=== PATIENT | female | born 1955 | race Hispanic/Latino ===

== ENCOUNTER 2020-12-28 08:30 | Day surgery (SDC) | payer MEDICARE ==
[2020-12-28] MEDS ORDERED: SODIUM CHLORIDE 0.9% 1000 ML 1,000 ML IV SCH (09:00)
[2020-12-28 09:34] LABS: Hematocrit 25.8 % (30.3-42.9); Hemoglobin 8.6 gm/dl (10.1-14.3); Mean Corpuscular HGB Conc 33 % (30-34); Mean Corpuscular Volume 96 fl (79-97); Platelet Count 258 K/mm3 (140-440); Red Blood Count 2.68 M/mm3 (3.65-5.03); Red Cell Distribution Width 13.7 % (13.2-15.2)
[2020-12-28] MEDS ORDERED: BUPIVACAINE-EPINEPHRINE/PF 0.5%-1:200,000 (30 ML) VIAL INFILTRATI ONE (09:48)
[2020-12-28] MEDS ORDERED: MIDAZOLAM 2 MG/2 ML INJ ONE ×2 (09:48→11:07)
[2020-12-28] MEDS ORDERED: fentaNYL 100 MCG/2 ML INJ ONE (09:48)
[2020-12-28] MEDS ORDERED: ONDANSETRON 4 MG/2 ML INJ IV PRN (09:52)
[2020-12-28] MEDS ORDERED: HYDROmorphone 1 MG/1 ML INJ IV PRN ×2 (09:52)
--- NOTE | 2020-12-28 09:53 | Anesthesia Day of Surgery ---
Anesthesia Day of Surgery - Day of Surgery Patient Examined: Yes Patient H&P Reviewed: Yes Patient is NPO: Yes Beta Blockers: Yes
--- NOTE | 2020-12-28 09:55 | Anesthesia Consultation ---
Anesthesia Consult and Med Hx Date of service: 12/28/20 - Airway Anesthetic Teeth Evaluation: Chipped (Missing) ROM Head & Neck: Adequate Mental/Hyoid Distance: Adequate Intubation Access Assessment: Good - Pre-Operative Health Status ASA Pre-Surgery Classification: ASA3 Proposed Anesthetic Plan: General (BLOCK; GA if needed) - Pulmonary Hx Smoking: No Hx Asthma: No Hx Respiratory Symptoms: No (Limited activity because loses balance) COPD: No Hx Pneumonia: No Hx Sleep Apnea: No (JOSE ARMANDO PRE SCREEN HIGH RISK) - Cardiovascular System Hx Hypertension: Yes (X 6 YRS) Hx Heart Attack/AMI: No Hx Pacemaker: No Hx Internal Defibrillator: No Hx Heart Murmur: No - Central Nervous System Hx Seizures: No Hx Back Pain: Yes (ALSO NECK) Hx Psychiatric Problems: No - Gastrointestinal Hx Gastroesophageal Reflux Disease: Yes - Endocrine Hx Renal Disease: Yes (Acute) Hx End Stage Renal Disease: Yes ("WATCHING"-GETTING AVF JUST IN CASE) Hx Cirrhosis: No Hx Liver Disease: No Hx Non-Insulin Dependent Diabetes: Yes (non-compliant. BS 641 on admission) - Hematic Hx Anemia: Yes Hx Sickle Cell Disease: No - Other Systems Hx Alcohol Use: No Hx Substance Use: No Hx Cancer: No Hx Obesity: Yes
[2020-12-28] MEDS ORDERED: HEPARIN 10,000 UNITS/10 ML VIAL ONE (10:24)
[2020-12-28] MEDS ORDERED: SODIUM CHLORIDE 0.9% 250ML 0 ML ONE (10:25)
[2020-12-28] MEDS ORDERED: BUPIVACAINE/PF (0.5%) 5 MG/1 ML 30 ML VIAL INFILTRATI ONE ×3 (10:25→15:11)
[2020-12-28] MEDS ORDERED: PAPAVERINE 60 MG/2 ML INJ SDV ONE (10:26)
[2020-12-28] MEDS ORDERED: SODIUM CHLORIDE 0.9% 500 ML 500 ML ONE (10:26)
[2020-12-28] MEDS ORDERED: PROTAMINE SULFATE 50 MG/5 ML INJ ONE (10:28)
[2020-12-28] MEDS ORDERED: rifAMPin 600 MG VIAL ONE (10:29)
[2020-12-28] MEDS ORDERED: LIDOCAINE (1%) 10 MG/1 ML VIAL 20 ML MDV ONE (10:30)
[2020-12-28] MEDS ORDERED: HEPARIN 10,000 UNITS/10 ML VIAL IV ONE ×2 (10:51→15:11)
[2020-12-28] MEDS ORDERED: SODIUM CHLORIDE 0.9% IRR 1,500 ML BOTTLE IR ONE ×2 (10:52→15:11)
[2020-12-28 10:54] LABS: Calcium 8.4 mg/dL (8.4-10.2)
[2020-12-28] MEDS ORDERED: BUPIVACAINE-EPINEPHRINE/PF 0.5%-1:200,000 (10 ML) VIAL INFILTRATI ONE (11:15)
[2020-12-28] MEDS ORDERED: propofoL 200 MG/20 ML VIAL IV ONE (14:30)
[2020-12-28] MEDS ORDERED: SODIUM CHLORIDE 0.9% 500 ML IVPB IRRIGATION ONE (15:10)
[2020-12-28] MEDS ORDERED: hydrALAZINE 20 MG/1 ML INJ ONE (15:59)
--- NOTE | 2020-12-28 16:08 | Short Stay Summary ---
Short Stay Documentation Date of service: 12/28/20 Narrative H&P: See H&P - History H&P: dictated (Written H&P Sheet) - Allergies and Medications Current Medications: Allergies Penicillins Allergy (Verified 07/19/16 00:38) Rash tetracycline Allergy (Verified 07/19/16 00:38) Rash Home Medications Medication Instructions Recorded Confirmed Last Taken Type Aspirin 81 mg PO QDAY tablet 07/27/16 12/28/20 12/27/20 Rx AtorvaSTATin [Lipitor] 80 mg PO QHS 10/26/20 12/28/20 12/27/20 History Bumetanide [Bumetanide 2 mg tab] 2 mg PO DAILY 10/26/20 12/28/20 12/27/20 History Cholecalciferol (Vitamin D3) 50,000 unit PO QWEEK 10/26/20 12/28/20 12/27/20 History [Vitamin D3 50,000UNIT CAP] Insulin Glargine,Hum.rec.anlog 42 units SQ QHS 10/26/20 10/26/20 12/27/20 History [Toujeo Solostar] Sodium Bicarbonate 650 mg PO BID 10/26/20 12/28/20 12/27/20 History calcitrioL [Rocaltrol] 0.25 mcg PO 3XW 10/26/20 12/28/20 12/27/20 History hydrALAZINE [Apresoline] 50 mg PO BID 10/26/20 12/28/20 12/27/20 History lisinopriL [Zestril TAB] 40 mg PO QDAY 10/26/20 12/28/20 12/27/20 History metOLazone [Zaroxolyn] 5 mg PO QDAY 10/26/20 12/28/20 12/27/20 History Esomeprazole Magnesium [Nexium 20 mg PO DAILY 12/22/20 12/22/20 12/27/20 History 24Hr] Gabapentin [Neurontin] 800 mg PO BID 12/22/20 12/22/20 12/27/20 History Glimepiride [Amaryl] 4 mg PO BID 12/22/20 12/22/20 12/27/20 History Metoprolol Xl [Metoprolol 12.5 mg PO BID 12/22/20 12/28/20 12/28/20 07:00 History SUCCINATE ER TAB] Saxagliptin HCl [Onglyza] 5 mg PO DAILY 12/22/20 12/22/20 12/27/20 History Vitamin D2 1 cap PO 3XW 12/22/20 12/22/20 12/27/20 History Active Medications Hydromorphone HCl (Hydromorphone 1 Mg/1 Ml Inj) 0.25 mg IV Q10MIN PRN PRN Reason: Pain, Moderate (4-6) Stop: 12/28/20 23:00 Hydromorphone HCl (Hydromorphone 1 Mg/1 Ml Inj) 0.5 mg IV Q10MIN PRN PRN Reason: Pain , Severe (7-10) Stop: 12/28/20 23:00 Clindamycin HCl (Cleocin 900 Mg/50 Ml) 900 mg in 50 mls @ 100 mls/hr IV PREOP NR; Protocol Stop: 12/28/20 20:00 Sodium Chloride (Nacl 0.9% 1000 Ml) 1,000 mls @ 42 mls/hr IV DIRECT ARABELLA Last Admin: 12/28/20 09:10 Dose: 42 mls/hr Documented by: Ondansetron HCl (Ondansetron 4 Mg/2 Ml Inj) 4 mg IV ONCE PRN PRN Reason: Nausea And Vomiting Stop: 12/28/20 18:00 - Brief post op/procedure progress note Date of procedure: 12/28/20 Pre-op diagnosis: Chronic Renal Sufficiency Post-op diagnosis: same Procedure: Creation of Left Brachiocephalic Arteriovenous Fistula Anesthesia: MAC, local Surgeon: SEA GOODMAN Estimated blood loss: minimal Pathology: none Condition: stable - Disposition Condition at discharge: Good Disposition: [id number] TO HOME OR SELFCARE Short Stay Discharge Plan Activity: other (No heavy lifting with left arm for 2 weeks) Wound: open to air, keep clean and dry, other (Okay to wash the wound with soap and water but do not soak in water for 2 weeks. Use a stress ball, with left hand, as often as possible.) Follow up with: SEA GOODMAN MD [Staff Physician] - 14 Days Prescriptions: HYDROcodone/APAP 5-325 [[place] 5/325] 1 each PO Q4HR PRN #30 tablet PRN Reason: Pain
--- NOTE | 2020-12-28 16:30 | Operative Report ---
Operative Report Operative Report: Date of procedure: 12/28/2020 Pre-operative diagnosis: End-Stage Renal Disease Post-operative diagnosis: End-Stage Renal Disease Procedure(s): Creation of Left brachial Artery to Cephalic Vein Arteriovenous Fistula Surgeon: Cal Mendoza MD Skirt Trimmer: None Anesthesia: Regional/MAC EBL: Minimal Counts: Correct Complications: None Condition: Stable Findings: Successful creation of left brachiocephalic arteriovenous fistula with palpable thrill and palpable radial pulse at the completion of the case. Specimen: None Indications: The patient is a 65-year-old female with history of stage IV chronic renal sufficiency who was not yet on hemodialysis however it is anticipated that she will progress to end-stage renal disease within the next several months. She is in need of permanent dialysis access prior to progression to end-stage renal disease. Her vein mapping indicated she is an adequate candidate for creation of an arteriovenous fistula. She was given the risk, benefits, and alternative procedures and consented to the procedure. Description of Procedure: The patient had a regional block of the left arm performed in the preoperative area prior to being transported to the operating room. Once the regional block was performed the patient was transported to the operating room and adequate sedation was given. When the patient was sedated a timeout was performed and the patient's left arm was then prepped and draped in normal sterile fashion. A transverse incision was then made and carried down to the cephalic vein using sharp dissection. The vein was dissected out both proximally and distally and suture ligated and divided distally. I flushed the vein with heparinized saline and flow was controlled with a bulldog clamp. I then dissected out the brachial artery through this incision circumferentially both proximal and distal and controlled the artery with vessel loops. I systemically heparinized the patient with 3000 units of heparin IV and used angled DeBakey clamps to control flow through the artery. I created an arteriotomy using an 11 blade and Schwab scissors. I created an end to side anastomosis between the cephalic vein and brachial artery using a 6-0 Prolene in running fashion. Prior to completing the anastomosis I flashed the artery both proximally and distally and then flushed the anastomosis with heparinized saline to remove any debris. I then completed the anastomosis and removed all clamps allowing flow into the fistula which had an adequate thrill. I achieved hemostasis with a combination of Quick Clot and electrocautery. Once hemostasis had been achieved I closed the wound in 2 layers using a 3-0 Vicryl in a running fashion in the deep dermal layer and a 4- 0 Monocryl in running fashion in the subcuticular layer. I then dressed the wound with Dermabond. The patient tolerated the procedure well. All sponge, needle, and instrument counts were correct. The patient was taken to the recovery area in stable condition.
[2020-12-28 18:17] VITALS: BP 143/67
== END 2020-12-28 18:00 | disposition home or self-care (01) ==
LOC: OR 08:30
PROVIDERS: ATTEND Surgery Vascular Surgery
DX: I12.0 Hypertensive chronic kidney disease with stage 5 chronic kidney disease or end stage renal disease (principal); E11.22 Type 2 diabetes mellitus with diabetic chronic kidney disease; N18.6 End stage renal disease; E78.00 Pure hypercholesterolemia, unspecified; K21.9 Gastro-esophageal reflux disease without esophagitis; E66.9 Obesity, unspecified; M19.90 Unspecified osteoarthritis, unspecified site; D64.9 Anemia, unspecified; Z88.0 Allergy status to penicillin; Z79.899 Other long term (current) drug therapy; Z98.41 Cataract extraction status, right eye; Z98.42 Cataract extraction status, left eye; Z90.49 Acquired absence of other specified parts of digestive tract; Z98.891 History of uterine scar from previous surgery; Z91.81 History of falling; Z98.890 Other specified postprocedural states
CPT/HCPCS: 36415; 36821; 80048; 82962; 85027; J0360; J1644; J2250; J2440; J2704; J3010; J7030; J7040; 64450; J2720; J3490; J7050

== ENCOUNTER 2021-03-06 13:10 | Inpatient (IN) | payer MEDICARE ==
--- NOTE | 2021-03-06 13:51 | Event Note ---
ED Screening Note ED Screening Note: Warrant Server Dr. Juarez She states that she has a AV graft but has never been dialyzed She states that her netting inspector advised her she was in stage V kidney disease She presents for shortness of breath, abdominal pain, diffuse swelling She denies any chest pain, fever, nausea, vomiting, diarrhea Regular rate and rhythm, breath sounds are clear bilaterally, no wheezing, no rales, no rhonchi, no respiratory distress, no excessive muscle use This initial assessment/diagnostic orders/clinical plan/treatment(s) is/are subject to change based on patients health status, clinical progression and re- assessment by fellow clinical providers in the ED. Further treatment and workup at subsequent clinical providers discretion. Patient/guardian urged not to elope from the ED as their condition may be serious if not clinically assessed and managed. Initial orders include: Labs, x-ray, EKG
[2021-03-06 14:06] LABS: Basophils # (Auto) 0.1 K/mm3 (0.0-0.1); Eosinophils # (Auto) 0.2 K/mm3 (0.0-0.4); Eosinophils % (Auto) 2.7 % (0.0-4.3); Hematocrit 27.8 % (30.3-42.9); Hemoglobin 9.4 gm/dl (10.1-14.3); Lymphocytes # (Auto) 1.6 K/mm3 (1.2-5.4); Lymphocytes % (Auto) 17.8 % (13.4-35.0); Mean Corpuscular HGB Conc 34 % (30-34); Mean Corpuscular Volume 96 fl (79-97); Monocytes # (Auto) 0.8 K/mm3 (0.0-0.8); Monocytes % (Auto) 8.4 % (0.0-7.3); Platelet Count 187 K/mm3 (140-440); Red Cell Distribution Width 14.4 % (13.2-15.2)
--- NOTE | 2021-03-06 14:19 | XRay Report ---
CHEST 2 VIEWS INDICATION / CLINICAL INFORMATION: sob, swelling. FINDINGS: SUPPORT DEVICES: None. HEART / MEDIASTINUM: No significant abnormality. LUNGS / PLEURA: No significant pulmonary or pleural abnormality. No pneumothorax. ADDITIONAL FINDINGS: No significant additional findings. IMPRESSION: 1. No acute findings. Signer Name: Homero Ferraro MD Signed: 03/06/2021 2:14 PM Workstation Name: [id number]
[2021-03-06 14:29] LABS: Albumin 2.8 g/dL (3.9-5); Calcium 7.8 mg/dL (8.4-10.2)
[2021-03-06 14:59] LABS: Chol/HDL Ratio 4.75 %
[2021-03-06] MEDS ORDERED: HYOSCYAMINE SUBL 0.125 MG TAB SL ONE (20:23)
[2021-03-06] MEDS ORDERED: diphenhydrAMINE 50 MG/ML VIAL IV STA (20:23)
[2021-03-06] MEDS ORDERED: METOCLOPRAMIDE 10 MG/2 ML INJ IV STA (20:23)
--- NOTE | 2021-03-06 20:23 | Emergency Department Report ---
<DI HERR - Last Filed: 03/06/21 21:06> ED N/V/D HPI - General Chief complaint: Abdominal Pain Stated complaint: CANT KEEP ANYTHING DOWN Time Seen by Provider: 03/06/21 13:49 - Related Data Home Medications Medication Instructions Recorded Confirmed Last Taken AtorvaSTATin [Lipitor] 80 mg PO QHS 10/26/20 12/28/20 12/27/20 Bumetanide [Bumetanide 2 mg tab] 2 mg PO DAILY 10/26/20 12/28/20 12/27/20 Cholecalciferol (Vitamin D3) 50,000 unit PO QWEEK 10/26/20 12/28/20 12/27/20 [Vitamin D3 50,000UNIT CAP] Insulin Glargine,Hum.rec.anlog 42 units SQ QHS 10/26/20 10/26/20 12/27/20 [Toujeo Solostar] Sodium Bicarbonate 650 mg PO BID 10/26/20 12/28/20 12/27/20 calcitrioL [Rocaltrol] 0.25 mcg PO 3XW 10/26/20 12/28/20 12/27/20 hydrALAZINE [Apresoline TAB] 50 mg PO BID 10/26/20 12/28/20 12/27/20 lisinopriL [Zestril TAB] 40 mg PO QDAY 10/26/20 12/28/20 12/27/20 metOLazone [Zaroxolyn] 5 mg PO QDAY 10/26/20 12/28/20 12/27/20 Esomeprazole Magnesium [Nexium 20 mg PO DAILY 12/22/20 12/22/20 12/27/20 24Hr] Gabapentin [Neurontin] 800 mg PO BID 12/22/20 12/22/20 12/27/20 Glimepiride [Amaryl] 4 mg PO BID 12/22/20 12/22/20 12/27/20 Metoprolol Xl [Metoprolol 12.5 mg PO BID 12/22/20 12/28/20 12/28/20 07:00 SUCCINATE ER TAB] Saxagliptin HCl [Onglyza] 5 mg PO DAILY 12/22/20 12/22/20 12/27/20 Vitamin D2 1 cap PO 3XW 12/22/20 12/22/2021 Previous Rx's Medication Instructions Recorded Last Taken Type Aspirin 81 mg PO QDAY tablet 07/27/16 12/27/20 Rx HYDROcodone/APAP 5-325 [Fisk 1 each PO Q4HR PRN #30 tablet 12/28/20 Unknown Rx 5/325] Allergies Allergy/AdvReac Type Severity Reaction Status Date / Time Penicillins Allergy Rash Verified 07/19/16 00:38 tetracycline Allergy Rash Verified 07/19/16 00:38 ED Past Medical Hx - Medications Home Medications: Home Medications Medication Instructions Recorded Confirmed Last Taken Type Aspirin 81 mg PO QDAY tablet 07/27/16 12/28/20 12/27/20 Rx AtorvaSTATin [Lipitor] 80 mg PO QHS 10/26/20 12/28/20 12/27/20 History Bumetanide [Bumetanide 2 mg tab] 2 mg PO DAILY 10/26/20 12/28/20 12/27/20 History Cholecalciferol (Vitamin D3) 50,000 unit PO QWEEK 10/26/20 12/28/20 12/27/20 History [Vitamin D3 50,000UNIT CAP] Insulin Glargine,Hum.rec.anlog 42 units SQ QHS 10/26/20 10/26/20 12/27/20 History [Toujeo Solostar] Sodium Bicarbonate 650 mg PO BID 10/26/20 12/28/20 12/27/20 History calcitrioL [Rocaltrol] 0.25 mcg PO 3XW 10/26/20 12/28/20 12/27/20 History hydrALAZINE [Apresoline TAB] 50 mg PO BID 10/26/20 12/28/20 12/27/20 History lisinopriL [Zestril TAB] 40 mg PO QDAY 10/26/20 12/28/20 12/27/20 History metOLazone [Zaroxolyn] 5 mg PO QDAY 10/26/20 12/28/20 12/27/20 History Esomeprazole Magnesium [Nexium 20 mg PO DAILY 12/22/20 12/22/20 12/27/20 History 24Hr] Gabapentin [Neurontin] 800 mg PO BID 12/22/20 12/22/20 12/27/20 History Glimepiride [Amaryl] 4 mg PO BID 12/22/20 12/22/20 12/27/20 History Metoprolol Xl [Metoprolol 12.5 mg PO BID 12/22/20 12/28/20 12/28/20 07:00 History SUCCINATE ER TAB] Saxagliptin HCl [Onglyza] 5 mg PO DAILY 12/22/20 12/22/20 12/27/20 History Vitamin D2 1 cap PO 3XW 12/22/20 12/22/20 12/27/20 History HYDROcodone/APAP 5-325 [Fisk 1 each PO Q4HR PRN #30 tablet 12/28/20 Unknown Rx 5/325] ED Medical Decision Making - Lab Data Result diagrams: 03/06/21 13:51 03/06/21 13:51 - Medical Decision Making I evaluated Ms. Raines. She has a history of insulin-dependent diabetes, hypertension, end-stage renal disease. She is currently not on hemodialysis. Since Sunday for the past 6 days she has had severe abdominal pain burning gurgling sensation. She has been unable to tolerate her blood pressure medications. She has been unable to take insulin due to poor intake. On my examination patient is in severe discomfort. She has markedly elevated blood pressure. I recommended small bolus gentle hydration with 500 mL normal saline and supportive treatment with antiemetic and pain control. Also recommended IV labetalol for malignant hypertensive urgency. Also recommended nephrology consultation and hospitalist admission. I suspect symptoms are due to diabetic gastroparesis versus uremic complications of end-stage renal disease ED Disposition Clinical Impression: Uremic colitis syndrome, ESRD (end stage renal disease), Malignant hypertensive urgency, IDDM (insulin dependent diabetes mellitus) Disposition: OP ADMIT IP TO THIS HOSP Condition: Stable Instructions: Diabetes Mellitus Type 2 in Adults (ED), Abdominal Pain (ED) Referrals: PRIMARY CARE, [Primary Care Provider] - 3-5 Days <ELAYNE HANDLEY - Last Filed: 03/06/21 23:26> ED N/V/D HPI - General Source: patient Mode of arrival: Ambulatory Limitations: No Limitations - History of Present Illness Initial comments: 66-year-old pleasant female with past medical history of diabetes, end-stage renal disease diagnosed 6 months ago and now awaiting dialysis presents emerge department complaining of a 6 to 7-day history of nausea vomiting and diarrhea associated with abdominal cramping, dull headaches and now dry heaving. She reports no hemoptysis no hematemesis hematochezia, no no fever, chills, sweats. Reports no no chest pain or palpitations. The abdominal pain is to the epigastric region. States that she feels weak and dehydrated feels like she needs fluids. Associated Abdominal Pain: Yes Location: epigastric Radiation: none Severity: mild Improves with: none Worsens with: none Associated Symptoms: myalgias, headaches, malaise, nausea/vomiting, weakness. denies: chest pain, cough, diaphoresis, shortness of breath ED Review of Systems ROS: Stated complaint: CANT KEEP ANYTHING DOWN Other details as noted in HPI Comment: All other systems reviewed and negative ED Past Medical Hx - Past Medical History Previous Medical History?: Yes Hx Hypertension: Yes (X 6 YRS) Hx Heart Attack/AMI: No Hx Congestive Heart Failure: No Hx Diabetes: Yes Hx GERD: Yes Hx Liver Disease: No Hx Renal Disease: Yes (Acute) Hx Sickle Cell Disease: No Hx Arthritis: Yes (SPINAL,FEET & KNEES) Hx Headaches / Migraines: No Hx Seizures: No Hx Kidney Stones: No Hx Asthma: No Hx COPD: No Hx Tuberculosis: No Hx HIV: No - Surgical History Past Surgical History?: Yes Hx Coronary Stent: No Hx Pacemaker: No Hx Internal Defibrillator: No Hx Cholecystectomy: Yes Additional Surgical History: left knee. fistual to LUE - Social History Smoking Status: Never Smoker Substance Use Type: None ED Physical Exam - General Limitations: No Limitations General appearance: alert, in no apparent distress - Head Head exam: Present: atraumatic, normocephalic - Eye Eye exam: Present: normal appearance - ENT ENT exam: Present: mucous membranes moist - Neck Neck exam: Present: normal inspection - Respiratory Respiratory exam: Present: normal lung sounds bilaterally, decreased breath sounds (To the bases with fine crackles). Absent: respiratory distress - Cardiovascular Cardiovascular Exam: Present: regular rate, normal rhythm. Absent: systolic murmur, diastolic murmur, rubs, gallop - GI/Abdominal GI/Abdominal exam: Present: soft, tenderness (To the epigastric region with palpation.), normal bowel sounds - Extremities Exam Extremities exam: Present: normal inspection, pedal edema (Lower extremity pitting edema is noted) - Back Exam Back exam: Present: normal inspection. Absent: CVA tenderness (R), CVA tenderness (L) - Neurological Exam Neurological exam: Present: alert, oriented X3, CN II-XII intact - Psychiatric Psychiatric exam: Present: normal affect, normal mood. Absent: depressed, a nxious - Skin Skin exam: Present: warm, dry, intact, normal color. Absent: rash ED Course Vital Signs 03/06/21 03/06/21 03/06/21 13:46 17:53 19:24 Temperature 98.3 F 98.3 F Pulse Rate 68 66 68 Respiratory 22 18 17 Rate Blood Pressure 216/68 Blood Pressure 124/70 [Right] O2 Sat by Pulse 96 97 98 Oximetry 03/06/21 03/06/21 03/06/21 19:31 19:45 20:01 Temperature Pulse Rate 74 76 76 Respiratory 14 18 16 Rate Blood Pressure 201/57 203/56 205/71 Blood Pressure [Right] O2 Sat by Pulse 98 96 97 Oximetry 03/06/21 03/06/21 03/06/21 20:15 20:31 20:45 Temperature Pulse Rate 77 73 75 Respiratory 17 15 21 Rate Blood Pressure 207/63 194/74 230/70 Blood Pressure [Right] O2 Sat by Pulse 96 97 97 Oximetry 03/06/21 03/06/21 03/06/21 21:01 22:01 22:05 Temperature Pulse Rate 74 76 Respiratory 16 15 18 Rate Blood Pressure 234/79 234/79 Blood Pressure [Right] O2 Sat by Pulse 98 97 Oximetry 03/06/21 03/06/21 03/06/21 22:10 22:15 22:20 Temperature Pulse Rate 66 63 Respiratory 11 L 18 Rate Blood Pressure 216/68 186/53 Blood Pressure [Right] O2 Sat by Pulse 96 95 Oximetry - Reevaluation(s) Reevaluation #1: 03/06/21 20:44 Case discussed with my attending Dr. Di Herr whom had [id number] and evaluated Ms. Raines is well. Plan is to move forward the CT scan of the abdomen with no contrast also we will treat her hypertension with with labetalol and after we have received the results we will consult with her offline cutter to discuss the admission process - Consultations Consultation #1: 03/06/21 23:00 I did get the opportunity to speak with the offline cutter Dr. King who advised to admit patient to medicine and consult him so he can evaluate the patient first thing in the morning for dialysis. Call was placed to the hospitalist Consultation #2: 03/06/21 23:16 Case discussed with hospitalist Dr. Jackson plan is to admit in the interim with replace potassium with 10 or 20 of KCl IV per his recommendation as well as start the coronavirus work-up ED Medical Decision Making - Lab Data Result diagrams: 03/06/21 13:51 03/06/21 13:51 - Radiology Data Radiology results: report reviewed [address] [address] XRay Report Signed Patient: SENAIT RAINES MR#: [id number] : 1955 Acct:[id number] Age/Sex: 66 / F ADM Date: 03/06/21 Loc: ED Attending Dr: Ordering Physician: MARC SOMMERS Date of Service: 03/06/21 Procedure(s): XR chest routine 2V Accession Number(s): [id number] cc: MARC SOMMERS Fluoro Time In Minutes: CHEST 2 VIEWS INDICATION / CLINICAL INFORMATION: sob, swelling. FINDINGS: SUPPORT DEVICES: None. HEART / MEDIASTINUM: No significant abnormality. LUNGS / PLEURA: No significant pulmonary or pleural abnormality. No pneum othorax. ADDITIONAL FINDINGS: No significant additional findings. IMPRESSION: 1. No acute findings. Signer Name: Homero Ferraro MD Signed: 03/06/2021 2:14 PM Workstation Name: [id number] Transcribed By: Dictated By: Homero Ferraro MD Electronically Authenticated By: Homero Ferraro MD Signed Date/Time: 03/06/211413 DD/ 13 TD/TT: [address] [place] [id number] XRay Report Signed Patient: SENAIT RAINES MR#: [id number] : 1955 Acct:[id number] Age/Sex: 66 / F ADM Date: 03/06/21 Loc: ED Attending Dr: Ordering Physician: MARC SOMMERS Date of Service: 03/06/21 Procedure(s): XR chest routine 2V Accession Number(s): [id number] cc: MARC SOMMERS Fluoro Time In Minutes: CHEST 2 VIEWS INDICATION / CLINICAL INFORMATION: sob, swelling. FINDINGS: SUPPORT DEVICES: None. HEART / MEDIASTINUM: No significant abnormality. LUNGS / PLEURA: No significant pulmonary or pleural abnormality. No pneumothorax. ADDITIONAL FINDINGS: No significant additional findings. IMPRESSION: 1. No acute findings. Signer Name: Homero Ferraro MD Signed: 03/06/2021 2:14 PM Workstation Name: [id number] Transcribed By: BC Dictated By: Homero Ferraro MD Electronically Authenticated By: Homero Ferraro MD Signed Date/Time: 03/06/211413 DD/ 13 TD/TT: CRISTOFER Joyner [id number] Cat Scan Report Signed Patient: SENAIT RAINES MR#: [id number] : 1955 Acct:[id number] Age/Sex: 66 / F ADM Date: 03/06/21 Loc: ED Attending Dr: Ordering Physician: MARC GUERRERO Date of Service: 03/06/21 Procedure(s): CT abdomen pelvis wo con Accession Number(s): [id number] cc: MARC GUERRERO CT ABDOMEN AND PELVIS WITHOUT CONTRAST INDICATION / CLINICAL INFORMATION: flank and right pelvic pain. TECHNIQUE: Axial CT images were obtained through the abdomen and pelvis without IV contrast. All CT scans at this location are performed using CT dose reduction for ALARA by means of automated exposure control. COMPARISON: None available. FINDINGS: LOWER CHEST: Groundglass opacity noted in the right lung base. Small bilateral pleural effusions are noted with minimal atelectasis. Mild coronary artery calcification is noted. LIVER: No significant abnormality. GALLBLADDER: Prior cholecystectomy. BILE DUCTS: No significant abnormality. PANCREAS: No significant abnormality. SPLEEN: No significant abnormality. ADRENALS: No significant abnormality. RIGHT KIDNEY / URETER: No significant abnormality. No calcified stones or hydronephrosis. LEFT KIDNEY / URETER: No significant abnormality. No calcified stones or hydronephrosis. STOMACH / SMALL BOWEL: No significant abnormality. COLON: No significant abnormality. APPENDIX: No significant abnormality. PERITONEUM: Mild intraperitoneal edema is noted. No free air. No complex fluid collection. LYMPH NODES: No significant adenopathy. AORTA / ARTERIES: Mild atherosclerotic calcification without acute abnormality. IVC / VEINS: No significant abnormality. URINARY BLADDER: No significant abnormality. No calcified stone burden. REPRODUCTIVE ORGANS: Dystrophic calcifications are noted of bilateral adnexa. ADDITIONAL FINDINGS: Moderate/severe body wall anasarca. SKELETAL SYSTEM: Moderate multilevel degenerative changes are noted of the spine most prominent at the facet joints. No aggressive osseous lesion. IMPRESSION: 1. Groundglass opacity in the right lung base may represent an infectious proc ess. Clinical correlation is dated. 2. Small bilateral pleural effusions with associated compressive atelectasis. 3. Disorganized intraperitoneal edema with body wall anasarca. 4. No acute inflammatory process of the abdomen or pelvis. Specifically, no evidence of calcified stones or hydronephrosis. Signer Name: Cayden Archer MD Signed: 03/06/2021 9:34 PM Workstation Name: [id number] Transcribed By: Dictated By: CAYDEN ARCHER Electronically Authenticated By: CAYDEN ARCHER Signed Date/Time: 03/06/212133 DD/ 26 TD/TT: Print Cancel - Medical Decision Making 60-year-old female history of insulin-dependent diabetes mellitus, hypertension, end-stage renal disease due to start hemodialysis at some point with a 7-day history of nausea vomiting and diarrhea that has been waxing and waning in a progressive worsening of fashion. Is unable to tolerate any of her medications which is resulting and more profound symptoms in her visit emergency department today and results in in a few issues #1 end-stage renal disease Currently she is hypervolemic with swelling to her bilateral lower extremities and to her torso region. CT scan does support moderate anasarca. And bilateral pleural effusions. Her potassium is low at 3.2 and she is not having a significant amount of shortness of breath. Case was discussed with her offline cutter Dr. King who will be consulted in the morning and and may very likely start on hemodialysis Problem 2 hypertension This hypertension is a known past medical history with due to her not been able tolerate her medications as the most likely cause of this spike in blood pressure. Was treated with labetalol IV and showed the appropriate response. She is remained relatively asymptomatic in regards to her hypertension while here in the emergency department. Nausea vomiting diarrhea 67-day history of nausea vomiting diarrhea no significant issues with with fevers chills sweats but is having some vague myalgias and cough. This may have been secondary to a food poisoning or a viral illness or her end-stage renal disease or even uremic complications. Also need to keep into perspective due to the groundglass appearance on her chest x-ray as well as the symptoms coronavirus is still a factor for this reason we will put her is and a person of interest until results come back. Critical care attestation.: If time is entered above; I have spent that time in minutes in the direct care of this critically ill patient, excluding procedure time. ED Disposition Is pt being admited?: Yes Does the pt Need Aspirin: No
[2021-03-06] MEDS ORDERED: SODIUM CHLORIDE 0.9% 1000 ML 1,000 ML IV ONE (20:52)
[2021-03-06] MEDS ORDERED: MORPHINE 4 MG/1 ML INJ IV STA (20:54)
--- NOTE | 2021-03-06 21:38 | Cat Scan Report ---
CT ABDOMEN AND PELVIS WITHOUT CONTRAST INDICATION / CLINICAL INFORMATION: flank and right pelvic pain. TECHNIQUE: Axial CT images were obtained through the abdomen and pelvis without IV contrast. All CT scans at is location are performed using CT dose reduction for ALARA by means of automated exposure control. COMPARISON: None available. FINDINGS: LOWER CHEST: Groundglass opacity noted in the right lung base. Small bilateral pleural effusions are noted with minimal atelectasis. Mild coronary artery calcification is noted. LIVER: No significant abnormality. GALLBLADDER: Prior cholecystectomy. BILE DUCTS: No significant abnormality. PANCREAS: No significant abnormality. SPLEEN: No significant abnormality. ADRENALS: No significant abnormality. RIGHT KIDNEY / URETER: No significant abnormality. No calcified stones or hydronephrosis. LEFT KIDNEY / URETER: No significant abnormality. No calcified stones or hydronephrosis. STOMACH / SMALL BOWEL: No significant abnormality. COLON: No significant abnormality. APPENDIX: No significant abnormality. PERITONEUM: Mild intraperitoneal edema is noted. No free air. No complex fluid collection. LYMPH NODES: No significant adenopathy. AORTA / ARTERIES: Mild atherosclerotic calcification without acute abnormality. IVC / VEINS: No significant abnormality. URINARY BLADDER: No significant abnormality. No calcified stone burden. REPRODUCTIVE ORGANS: Dystrophic calcifications are noted of bilateral adnexa. ADDITIONAL FINDINGS: Moderate/severe body wall anasarca. SKELETAL SYSTEM: Moderate multilevel degenerative changes are noted of the spine most prominent at th e facet joints. No aggressive osseous lesion. IMPRESSION: 1. Groundglass opacity in the right lung base may represent an infectious process. Clinical correlati on is dated. 2. Small bilateral pleural effusions with associated compressive atelectasis. 3. Disorganized intraperitoneal edema with body wall anasarca. 4. No acute inflammatory process of the abdomen or pelvis. Specifically, no evidence of calcified sto mark or hydronephrosis. Signer Name: Cayden Hines MD Signed: 03/06/2021 9:34 PM Workstation Name: [id number]
[2021-03-06] MEDS ORDERED: POTASSIUM CHLORIDE 10 MEQ 10 MEQ/100 ML BAG IV ONE (23:15)
[2021-03-07 01:30] LABS: C-Reactive Protein 0.5 mg/dL (0.00-1.30)
[2021-03-07] MEDS ORDERED: MAGNESIUM HYDROXIDE (MOM) ORAL LIQD UDC PO PRN (02:02)
[2021-03-07] MEDS ORDERED: DEXTROSE 50% IN WATER (25GM) 50 ML SYRINGE IV PRN (02:02)
[2021-03-07] MEDS ORDERED: ACETAMINOPHEN 325 MG TAB PO PRN (02:02)
--- NOTE | 2021-03-07 02:14 | History and Physical Report ---
History of Present Illness Date of examination: 03/07/21 Date of admission: 03/07/2021 Chief complaint: Nausea, vomiting and diarrhea Cough History of present illness: 66-year-old female with known history of diabetes mellitus, hypertension and end-stage renal disease however not on dialysis yet presents to the emergency room today complaining of nausea, vomiting and diarrhea with associated abdominal abdominal pain which has been ongoing for about 6 days. She denies any headache or dizziness, no fever or chills, no chest pain. However she has had some cough and shortness of breath. Cough has not been productive of any sputum. Patient denies any sick contacts and no recent travel. Denies any contact with anyone with COVID-19. She has not received Covid vaccination. Work-up in the emergency room today reveals elevated D-dimer of 1104, potassium of 3.2, BNP of about 48,000 Chest x-ray reveals no acute findings however CT of the abdomen and pelvis rev eals groundglass opacities in the right lung base which may represent an infectious process, small bilateral pleural effusion with associated compressive atelectasis, disorganized intraperitoneal edema with body wall anasarca. No inflammatory process of the abdomen or pelvis. Patient is being admitted for nausea and vomiting and diarrhea and will also be evaluated for COVID-19. Technical Laboratory Asst was also consulted for her end-stage renal disease. Past History Past Medical History: arthritis, diabetes, ESRD, hypertension Past Surgical History: cholecystectomy, Other (Left knee surgery, AV fistula placement) Social history: no significant social history Family history: no significant family history Medications and Allergies Allergies Allergy/AdvReac Type Severity Reaction Status Date / Time Penicillins Allergy Rash Verified 07/19/16 00:38 tetracycline Allergy Rash Verified 07/19/16 00:38 Home Medications Medication Instructions Recorded Confirmed Last Taken Type Aspirin 81 mg PO QDAY tablet 07/27/16 12/28/20 12/27/20 Rx AtorvaSTATin [Lipitor] 80 mg PO QHS 10/26/20 12/28/20 12/27/20 History Bumetanide [Bumetanide 2 mg tab] 2 mg PO DAILY 10/26/20 12/28/20 12/27/20 History Cholecalciferol (Vitamin D3) 50,000 unit PO QWEEK 10/26/20 12/28/20 12/27/20 History [Vitamin D3 50,000UNIT CAP] Insulin Glargine,Hum.rec.anlog 42 units SQ QHS 10/26/20 10/26/20 12/27/20 History [Touadalid Solostar] Sodium Bicarbonate 650 mg PO BID 10/26/20 12/28/20 12/27/20 History calcitrioL [Rocaltrol] 0.25 mcg PO 3XW 10/26/20 12/28/20 12/27/20 History hydrALAZINE [Apresoline TAB] 50 mg PO BID 10/26/20 12/28/20 12/27/20 History lisinopriL [Zestril TAB] 40 mg PO QDAY 10/26/20 12/28/20 12/27/20 History metOLazone [Zaroxolyn] 5 mg PO QDAY 10/26/20 12/28/20 12/27/20 History Esomeprazole Magnesium [Nexium 20 mg PO DAILY 12/22/20 12/22/20 12/27/20 History 24Hr] Gabapentin [Neurontin] 800 mg PO BID 12/22/20 12/22/20 12/27/20 History Glimepiride [Amaryl] 4 mg PO BID 12/22/20 12/22/20 12/27/20 History Metoprolol Xl [Metoprolol 12.5 mg PO BID 12/22/20 12/28/20 12/28/20 07:00 History SUCCINATE ER TAB] Saxagliptin HCl [Onglyza] 5 mg PO DAILY 12/22/20 12/22/20 12/27/20 History Vitamin D2 1 cap PO 3XW 12/22/20 12/22/20 12/27/20 History HYDROcodone/APAP 5-325 [[place] 1 each PO Q4HR PRN #30 tablet 12/28/20 Unknown Rx 5/325] Review of Systems Constitutional: lethargy, no fever, no chills Ears, nose, mouth and throat: no nasal congestion, no sore throat Cardiovascular: no chest pain, no palpitations Respiratory: cough, cough with sputum, shortness of breath, no wheezing Gastrointestinal: abdominal pain, nausea, vomiting, diarrhea, no BRBPR, no melena Genitourinary Female: no pelvic pain, no flank pain, no dysuria, no hematuria Musculoskeletal: no neck pain, no low back pain Integumentary: no rash, no pruritis Neurological: headaches, no confusion Psychiatric: no anxiety, no depression Endocrine: no polyphagia, no polydipsia, no polyuria, no nocturia Exam - Constitutional Vitals: Temp Pulse Resp BP Pulse Ox 98.3 F 63 18 186/53 95 03/06/21 17:53 03/06/21 22:15 03/06/21 22:20 03/06/21 22:15 03/06/21 22:20 General appearance: Present: no acute distress, well-nourished, obese - EENT Eyes: Present: PERRL, EOM intact. Absent: scleral icterus ENT: hearing intact, clear oral mucosa, dentition normal - Neck Neck: Present: supple, normal ROM - Respiratory Respiratory effort: normal Respiratory: bilateral: rales - Cardiovascular Rhythm: regular Heart Sounds: Present: S1 & S2. Absent: gallop, systolic murmur, diastolic murmur, rub, click - Extremities Extremities: no ischemia, Full ROM Extremity abnormal: edema (2+ bilateral lower extremity edema) - Abdominal General gastrointestinal: Present: soft, tender (Mild epigastric tenderness, no guarding and no rebound tenderness), distended (Slightly distended). Absent: mass - Integumentary Integumentary: Present: clear, warm, dry. Absent: rash - Musculoskeletal Musculoskeletal: strength equal bilaterally - Psychiatric Psychiatric: appropriate mood/affect, intact judgment & insight, memory intact, cooperative, other (Left upper extremity AV fistula. Palpable thrill.) - Neurologic Neurologic: CNII-XII intact, no focal deficits, moves all extremities HEART Score - HEART Score Troponin: Troponin T 0.172 ng/mL (0.00-0.029) H* 03/06/21 13:51 Results - Labs CBC & Chem 7: 03/06/21 13:51 03/06/21 23:39 Labs: Abnormal lab results 03/06/21 03/06/21 03/06/21 Range/Units 13:51 13:51 23:39 RBC 2.90 L (3.65-5.03) M/mm3 Hgb 9.4 L (10.1-14.3) gm/dl Hct 27.8 L (30.3-42.9) % [place] % (Auto) 8.4 H (0.0-7.3) % Seg Neutrophils % 70.1 H (40.0-70.0) % D-Dimer 1104.66 H (0-234) ng/mlDDU Potassium 3.2 L (3.6-5.0) mmol/L Chloride 110.4 H (98-107) mmol/L Carbon Dioxide 19 L (22-30) mmol/L BUN 35 H (7-17) mg/dL Creatinine 4.7 H (0.6-1.2) mg/dL Glucose 177 H (65-100) mg/dL Calcium 7.8 L (8.4-10.2) mg/dL Total Bilirubin 1.30 H (0.1-1.2) mg/dL Lactate Dehydrogenase (91-180) units/L Total Creatine Kinase 534 H (30-135) units/L Troponin T 0.172 H* (0.00-0.029) ng/mL NT-Pro-B Natriuret Pep 69808 H (0-900) pg/mL Total Protein 5.8 L (6.3-8.2) g/dL Albumin 2.8 L (3.9-5) g/dL HDL Cholesterol 36 L (40-59) mg/dL 03/06/21 Range/Units 23:39 RBC (3.65-5.03) M/mm3 Hgb (10.1-14.3) gm/dl Hct (30.3-42.9) % [place] % (Auto) (0.0-7.3) % Seg Neutrophils % (40.0-70.0) % D-Dimer (0-234) ng/mlDDU Potassium (3.6-5.0) mmol/L Chloride (98-107) mmol/L Carbon Dioxide (22-30) mmol/L BUN (7-17) mg/dL Creatinine (0.6-1.2) mg/dL Glucose 148 H (65-100) mg/dL Calcium (8.4-10.2) mg/dL Total Bilirubin (0.1-1.2) mg/dL Lactate Dehydrogenase 279 H (91-180) units/L Total Creatine Kinase (30-135) units/L Troponin T (0.00-0.029) ng/mL NT-Pro-B Natriuret Pep (0-900) pg/mL Total Protein (6.3-8.2) g/dL Albumin (3.9-5) g/dL HDL Cholesterol (40-59) mg/dL Assessment and Plan - Patient Problems (1) ESRD (end stage renal disease) Current Visit: Yes Status: Acute Plan to address problem: Currently volume overloaded Consult placed to medical office rep for evaluation and recommendation. Dr. King has been consulted by the ER physician. For possible dialysis in the a.m. Meanwhile placed on Furosemide. (2) Person under investigation for COVID-19 Current Visit: Yes Status: Acute Plan to address problem: Patient be placed on isolation precautions. Consult placed to infectious disease for evaluation. Will await COVID-19 testing. (3) IDDM (insulin dependent diabetes mellitus) Current Visit: Yes Status: Acute Plan to address problem: We will monitor Accu-Cheks closely. Patient placed on sliding scale insulin. (4) Malignant hypertensive urgency Current Visit: Yes Status: Acute Plan to address problem: Patient has not been able to take her oral medication because of the nausea and vomiting. We will resume routine home medications once able to tolerate p.o. intake. We will place on IV hydralazine as needed. We will monitor vital signs closely. (5) Pyuria Current Visit: Yes Status: Acute Plan to address problem: Patient placed on empiric IV antibiotics. (6) Hypokalemia Current Visit: Yes Status: Acute Plan to address problem: Potassium repleted in the ER. We will monitor chemistry. (7) DVT prophylaxis Current Visit: No Status: Acute Plan to address problem: We will place patient on subcutaneous heparin. (8) Full code status Current Visit: Yes Status: Acute Plan to address problem: Patient is full code.
[2021-03-07 02:29] LABS: Bacteria,Urine 1+ /HPF (Negative); Bilirubin,Urine NEG (Negative); Blood,Urine SM (Negative); Color,Urine Yellow (Yellow); Mucus,Urine FEW /HPF; Urobilinogen,Urine < 2.0 mg/dL (<2.0)
[2021-03-07 02:31] LABS: Protein,Urine >500 mg/dL (Negative)
[2021-03-07] MEDS: HEPARIN 5,000 UNIT/1 ML VIAL SUB-Q SCH ×3 (05:29→21:22)
[2021-03-07] MEDS ORDERED: HEPARIN 10,000 UNITS/10 ML VIAL IV PRN (09:24)
[2021-03-07] MEDS ORDERED: SODIUM CHLORIDE 0.9% 100 ML IV PRN (09:24)
--- NOTE | 2021-03-07 09:37 | Consultation ---
History of Present Illness - Reason for Consult Consult date: 03/07/21 end stage renal disease Requesting physician: OTILIO HILL - History of Present Illness 66-year-old with a history of diabetes mellitus, hypertension, chronic kidney disease stage V who follows with Dr. King in the office. Patient has an AV fistula and was being prepared to initiate dialysis. Presents on account of several days history of abdominal pain, nausea vomiting and diarrhea. She was unable to keep anything down and had dry heaves. She was unable to keep her medications down and was not taking insulin due to her poor oral intake. She also complains of abdominal cramping worsened epigastric area. She admits to a dull headache and feels weak and dehydrated. She also admits to cough productive of dark sputum with chills but no fever. She had myalgia and weakness. Patient presented to emergency room was found to have blood pressure of 234/[address] scan showed evidence of anasarca with small bilateral pleural effusion, compressive atelectasis with groundglass opacity in the right lower lobe. I am consulted to assist in managing the kidney disease. Pro B type natruretic peptide is also high at 47,765. BUN/creatinine elevated at 35/4.7 mmol/L and potassium low at 3.2 mmol/L. Past History Past Medical History: arthritis, diabetes, ESRD, hypertension Past Surgical History: cholecystectomy, Other (Left knee surgery, AV fistula placement) Social history: no significant social history. denies: smoking, alcohol abuse, prescription drug abuse Family history: no significant family history Medications and Allergies Allergies Allergy/AdvReac Type Severity Reaction Status Date / Time Penicillins Allergy Rash Verified 07/19/16 00:38 tetracycline Allergy Rash Verified 07/19/16 00:38 Home Medications Medication Instructions Recorded Confirmed Last Taken Type Aspirin 81 mg PO QDAY tablet 07/27/16 12/28/20 12/27/20 Rx AtorvaSTATin [Lipitor] 80 mg PO QHS 10/26/20 12/28/20 12/27/20 History Bumetanide [Bumetanide 2 mg tab] 2 mg PO DAILY 10/26/20 12/28/20 12/27/20 History Cholecalciferol (Vitamin D3) 50,000 unit PO QWEEK 10/26/20 12/28/20 12/27/20 History [Vitamin D3 50,000UNIT CAP] Insulin Glargine,Hum.rec.anlog 42 units SQ QHS 10/26/20 10/26/20 12/27/20 History [Toujeo Solostar] Sodium Bicarbonate 650 mg PO BID 10/26/20 12/28/20 12/27/20 History calcitrioL [Rocaltrol] 0.25 mcg PO 3XW 10/26/20 12/28/20 12/27/20 History hydrALAZINE [Apresoline TAB] 50 mg PO BID 10/26/20 12/28/20 12/27/20 History lisinopriL [Zestril TAB] 40 mg PO QDAY 10/26/20 12/28/20 12/27/20 History metOLazone [Zaroxolyn] 5 mg PO QDAY 10/26/20 12/28/20 12/27/20 History Esomeprazole Magnesium [Nexium 20 mg PO DAILY 12/22/20 12/22/20 12/27/20 History 24Hr] Gabapentin [Neurontin] 800 mg PO BID 12/22/20 12/22/20 12/27/20 History Glimepiride [Amaryl] 4 mg PO BID 12/22/20 12/22/20 12/27/20 History Metoprolol Xl [Metoprolol 12.5 mg PO BID 12/22/20 12/28/20 12/28/20 07:00 History SUCCINATE ER TAB] Saxagliptin HCl [Onglyza] 5 mg PO DAILY 12/22/20 12/22/20 12/27/20 History Vitamin D2 1 cap PO 3XW 12/22/20 12/22/20 12/27/20 History HYDROcodone/APAP 5-325 [[place] 1 each PO Q4HR PRN #30 tablet 12/28/20 Unknown Rx 5/325] Active Meds: Active Medications Acetaminophen (Acetaminophen 325 Mg Tab) 650 mg PO Q4H PRN PRN Reason: Pain MILD(1-3)/Fever >100.5/ROCHA Dextrose (Dextrose 50% In Water (25gm) 50 Ml Syringe) 0 ml IV Q30MIN PRN; Protocol PRN Reason: Hypoglycemia Furosemide (Furosemide 40 Mg/4 Ml Inj) 40 mg IV BID@0600,1800 [facility]A Heparin Sodium (Porcine) (Heparin 5,000 Unit/1 Ml Vial) 5,000 unit SUB-Q Q8HR [facility] Last Admin: 03/07/21 05:29 Dose: 5,000 unit Documented by: Hydralazine HCl (Hydralazine 20 Mg/1 Ml Inj) 10 mg IV Q4H PRN PRN Reason: Blood Pressure Levofloxacin/Dextrose (Levaquin 500mg/100ml) 500 mg in 100 mls @ 100 mls/hr IV Q48HR [facility] Insulin Human Lispro (Insulin Lispro 100 Unit/Ml) 0 unit SUB-Q ACHS ARABELLA; Protocol Magnesium Hydroxide (Magnesium Hydroxide (Mom) Oral Liqd Udc) 30 ml PO Q4H PRN PRN Reason: Constipation Morphine Sulfate (Morphine 2 Mg/1 Ml Inj) 2 mg IV Q4H PRN PRN Reason: Pain, Moderate (4-6) Ondansetron HCl (Ondansetron 4 Mg/2 Ml Inj) 4 mg IV Q8H PRN PRN Reason: Nausea And Vomiting Sodium Chloride (Sodium Chloride 0.9% 10 Ml Flush Syringe) 10 ml IV BID ARABELLA Sodium Chloride (Sodium Chloride 0.9% 10 Ml Flush Syringe) 10 ml IV PRN PRN PRN Reason: LINE FLUSH Review of Systems All systems: negative (Limited to decrease exposure of the examining physician during COVID-19 pandemic) Exam - Vital Signs Vital signs: Vital Signs Temp Pulse Resp BP Pulse Ox 98.3 F 68 22 124/70 96 03/06/21 13:46 03/06/21 13:46 03/06/21 13:46 03/06/21 13:46 03/06/21 13:46 - Physical Exam Narrative exam: Obese middle-aged female lying in bed in no acute distress HEENT: NCAT, pink oral mucous membrane Neck: Supple, no venous distention CVS: S1S2 RRR with no murmur, rub or gallop Chest: Clear to auscultation Abdomen: Protuberant, soft, nontender, no organomegaly, bowel sounds are present Extremities: 2-3+ pitting edema Genitourinary deferred Skin warm and dry with no rash Neuro: Awake, alert no focal deficits Results - Lab Results 03/06/21 13:51 03/06/21 23:39 Most recent lab results Calcium 7.8 mg/dL (8.4-10.2) L 03/06/21 13:51 Magnesium 1.90 mg/dL (1.7-2.3) 03/06/21 13:51 Assessment and Plan - Patient Problems (1) Chronic kidney disease, stage 5 Current Visit: Yes Status: Acute Plan to address problem: Chronic kidney disease progressed to end-stage renal disease with fluid overload. Nausea and vomiting may be related to uremia but also could be related to gastroparesis or COVID-19. Patient already has an AV fistula. She is severely volume overloaded despite taking oral diuretics. Needs to start dialysis. We will start dialysis using 17-gauge needles in her new AV fistula. It has been cleared for use by Dr. Mendoza her vascular surgeon. Will need to arrange for outpatient dialysis. Get hepatitis profile and check tuberculin skin test. senior it project manager to assist with placement (2) Nausea & vomiting Current Visit: Yes Status: Acute Plan to address problem: Give antiemetics as needed. Follow-up (3) Diarrhea Current Visit: Yes Status: Acute Plan to address problem: May be related to COVID-19. Check SARS coronavirus 2 PCR (4) Hypertensive urgency Current Visit: Yes Status: Acute Plan to address problem: Elevated blood pressure due to intolerance of oral antihypertensive medications. Resume medications follow-up blood pressure (5) Type 2 diabetes mellitus with diabetic chronic kidney disease Current Visit: Yes Status: Acute Plan to address problem: Blood sugar management by primary attending (6) Anemia in chronic kidney disease Current Visit: Yes Status: Acute Plan to address problem: Erythropoietin on dialysis. Check iron stores (7) Hypokalemia Current Visit: Yes Status: Acute Plan to address problem: Hypokalemia probably secondary to GI losses. Supplement potassium and follow- up. We will dialyze on a 4K bath
[2021-03-07] MEDS: FUROSEMIDE 40 MG/4 ML INJ IV SCH ×2 (09:59→21:22)
[2021-03-07] MEDS: INSULIN LISPRO 100 UNIT/ML SUB-Q SCH ×4 (09:59→21:23)
--- NOTE | 2021-03-07 11:46 | Event Note ---
Date: 03/07/21 66 year old F with a medical history of CKD admitted with fluid overload. She had left arm AV fistula placed 2 months ago but has not had HD. Nephrology has been consulted for evaluation. Due to changes in chest xray - likely related to fluid overload , COVID-19 cannot be ruled out (COVID-19 test ordered) manager pipeline consulted to assist with HD chair arrangement.
[2021-03-07] MEDS: MORPHINE 2 MG/1 ML INJ IV PRN ×2 (15:00→18:02)
--- NOTE | 2021-03-07 15:02 | Consultation ---
History of Present Illness - Reason for Consult Consult date: 03/07/21 - History of Present Illness 66-year-old female past medical history diabetes, hypertension, ESRD not on HD presented to hospital complaining of GI upset. He also complains of associated abdominal pain. This began approximately 6 days prior to admission has been persistent since then. She otherwise denies any symptoms aside from cough and some shortness of breath. She has not been vaccinated against Covid. Afebrile with a white count of 9.3. Procalcitonin normal, GFR 9. Very high BNP. Pending COVID-19. No cultures. Currently on Levaquin. Imaging personally reviewed: Chest x-ray: No findings CT abdomen pelvis: Groundglass in the right lung base intraperitoneal edema with body wall anasarca. Review of systems: Deferred to reduce to the risk of transmission of COVID-19 Past History Past Medical History: arthritis, diabetes, ESRD, hypertension Past Surgical History: cholecystectomy, Other (Left knee surgery, AV fistula placement) Social history: no significant social history. denies: smoking, alcohol abuse, prescription drug abuse Family history: no significant family history Medications and Allergies Allergies Allergy/AdvReac Type Severity Reaction Status Date / Time Penicillins Allergy Rash Verified 07/19/16 00:38 tetracycline Allergy Rash Verified 07/19/16 00:38 Home Medications Medication Instructions Recorded Confirmed Last Taken Type Aspirin 81 mg PO QDAY tablet 07/27/16 12/28/20 12/27/20 Rx AtorvaSTATin [Lipitor] 80 mg PO QHS 10/26/20 12/28/20 12/27/20 History Bumetanide [Bumetanide 2 mg tab] 2 mg PO DAILY 10/26/20 12/28/20 12/27/20 History Cholecalciferol (Vitamin D3) 50,000 unit PO QWEEK 10/26/20 12/28/20 12/27/20 History [Vitamin D3 50,000UNIT CAP] Insulin Glargine,Hum.rec.anlog 42 units SQ QHS 10/26/20 10/26/20 12/27/20 History [Toujeo Solostar] Sodium Bicarbonate 650 mg PO BID 10/26/20 12/28/20 12/27/20 History calcitrioL [Rocaltrol] 0.25 mcg PO 3XW 01/03/1112/28/20 12/27/20 History hydrALAZINE [Apresoline TAB] 50 mg PO BID 10/26/20 12/28/20 12/27/20 History lisinopriL [Zestril TAB] 40 mg PO QDAY 10/26/20 12/28/20 12/27/20 History metOLazone [Zaroxolyn] 5 mg PO QDAY 10/26/20 12/28/20 12/27/20 History Esomeprazole Magnesium [Nexium 20 mg PO DAILY 12/22/20 12/22/20 12/27/20 History 24Hr] Gabapentin [Neurontin] 800 mg PO BID 12/22/20 12/22/20 12/27/20 History Glimepiride [Amaryl] 4 mg PO BID 12/22/20 12/22/20 12/27/20 History Metoprolol Xl [Metoprolol 12.5 mg PO BID 12/22/20 12/28/20 12/28/20 07:00 History SUCCINATE ER TAB] Saxagliptin HCl [Onglyza] 5 mg PO DAILY 12/22/20 12/22/20 12/27/20 History Vitamin D2 1 cap PO 3XW 12/22/20 12/22/20 12/27/20 History HYDROcodone/APAP 5-325 [[place] 1 each PO Q4HR PRN #30 tablet 12/28/20 Unknown Rx 5/325] Active Meds: Active Medications Acetaminophen (Acetaminophen 325 Mg Tab) 650 mg PO Q4H PRN PRN Reason: Pain MILD(1-3)/Fever >100.5/ROCHA Dextrose (Dextrose 50% In Water (25gm) 50 Ml Syringe) 0 ml IV Q30MIN PRN; [place] col PRN Reason: Hypoglycemia Furosemide (Furosemide 40 Mg/4 Ml Inj) 40 mg IV BID@0600,1800 [facility] Last Admin: 03/07/21 09:59 Dose: 40 mg Documented by: Heparin Sodium (Porcine) (Heparin 5,000 Unit/1 Ml Vial) 5,000 unit SUB-Q Q8HR [facility] Last Admin: 03/07/21 05:29 Dose: 5,000 unit Documented by: Heparin Sodium (Porcine) (Heparin 10,000 Units/10 Ml Vial) 1,000 unit IV CHLOÉ PRN PRN Reason: hemodialysis Hydralazine HCl (Hydralazine 20 Mg/1 Ml Inj) 10 mg IV Q4H PRN PRN Reason: Blood Pressure Levofloxacin/Dextrose (Levaquin 500mg/100ml) 500 mg in 100 mls @ 100 mls/hr IV Q48HR [facility] Sodium Chloride (Nacl 0.9%) 100 mls @ 999 mls/hr IV CHLOÉ PRN PRN Reason: Hypotension Insulin Human Lispro (Insulin Lispro 100 Unit/Ml) 0 unit SUB-Q ACHS ARABELLA; Protocol Last Admin: 03/07/21 14:07 Dose: Not Given Documented by: Magnesium Hydroxide (Magnesium Hydroxide (Mom) Oral Liqd Udc) 30 ml PO Q4H PRN PRN Reason: Constipation Morphine Sulfate (Morphine 2 Mg/1 Ml Inj) 2 mg IV Q4H PRN PRN Reason: Pain, Moderate (4-6) Ondansetron HCl (Ondansetron 4 Mg/2 Ml Inj) 4 mg IV Q8H PRN PRN Reason: Nausea And Vomiting Sodium Chloride (Sodium Chloride 0.9% 10 Ml Flush Syringe) 10 ml IV BID [facility] Last Admin: 03/07/21 10:17 Dose: 10 ml Documented by: Sodium Chloride (Sodium Chloride 0.9% 10 Ml Flush Syringe) 10 ml IV PRN PRN PRN Reason: LINE FLUSH Physical Examination - Physical Exam Narrative exam: Physical exam deferred to reduce risk of transmission of COVID-19. Please refer to primary team's note. - Constitutional Vitals: Vital Signs Temp Pulse Resp BP Pulse Ox 98.3 F 65 13 183/53 96 03/06/21 17:53 03/07/21 05:45 03/07/21 05:45 03/07/21 05:45 03/07/21 05:45 Temperature -Last 24 Hours Temperature 98.3 F Results - Labs CBC & Chem 7: 03/06/21 13:51 03/06/21 23:39 Labs: Abnormal lab results 03/06/21 03/06/21 03/06/21 Range/Units 13:51 23:39 23:39 D-Dimer 1104.66 H (0-234) ng/mlDDU Potassium 3.2 L (3.6-5.0) mmol/L Chloride 110.4 H (98-107) mmol/L Carbon Dioxide 19 L (22-30) mmol/L BUN 35 H (7-17) mg/dL Creatinine 4.7 H (0.6-1.2) mg/dL Glucose 177 H 148 H (65-100) mg/dL POC Glucose (70-105) mg/dL Calcium 7.8 L (8.4-10.2) mg/dL Total Bilirubin 1.30 H (0.1-1.2) mg/dL Lactate Dehydrogenase 279 H (91-180) units/L Total Creatine Kinase 534 H (30-135) units/L Troponin T 0.172 H* (0.00-0.029) ng/mL NT-Pro-B Natriuret Pep 77429 H (0-900) pg/mL Total Protein 5.8 L (6.3-8.2) g/dL Albumin 2.8 L (3.9-5) g/dL HDL Cholesterol 36 L (40-59) mg/dL Urine WBC (Auto) (0.0-6.0) /HPF U Epithel Cells (Auto) (0-13.0) /HPF 03/07/21 03/07/21 Range/Units 09:53 Unknown D-Dimer (0-234) ng/mlDDU Potassium (3.6-5.0) mmol/L Chloride (98-107) mmol/L Carbon Dioxide (22-30) mmol/L BUN (7-17) mg/dL Creatinine (0.6-1.2) mg/dL Glucose (65-100) mg/dL POC Glucose 145 H (70-105) mg/dL Calcium (8.4-10.2) mg/dL Total Bilirubin (0.1-1.2) mg/dL Lactate Dehydrogenase (91-180) units/L Total Creatine Kinase (30-135) units/L Troponin T (0.00-0.029) ng/mL NT-Pro-B Natriuret Pep (0-900) pg/mL Total Protein (6.3-8.2) g/dL Albumin (3.9-5) g/dL HDL Cholesterol (40-59) mg/dL Urine WBC (Auto) 19.0 H (0.0-6.0) /HPF U Epithel Cells (Auto) 21.0 H (0-13.0) /HPF Assessment and Plan Cultures: Covid pending A/P: 66-year-old female past medical history diabetes, hypertension, ESRD not on HD admitted with GI upset and fluid overload #N/V/D: possibly secondary to uremia with worsening renal function and new need for HD. Also need to consider COVID, and test is pending. #Fluid overload: associated with worsening renal function #ESRD now on HD: nephro on board #Right sided GGO: procalcitonin likely to be unrevealing as will likely be falsely elevated in setting of ESRD #DM2: tight glycemic control for best outcomes. Recs: -Stopped Levaquin; symptoms most likely secondary to fluid overload/viremia. No evidence of inflammation on CT -Follow up COVID PCR, though less likely to be positive. -HD per nephro Thank you for the consult, we will continue to follow. MD [facility] O: [phone] F: [phone]
[2021-03-07] MEDS: hydrALAZINE 20 MG/1 ML INJ IV PRN ×2 (15:52→21:22)
[2021-03-07] MEDS: EPOETIN ALFA-EPBX 10,000 UNIT/1 ML VIAL IV PRN (17:30)
[2021-03-08] MEDS: ONDANSETRON 4 MG/2 ML INJ IV PRN (05:33)
[2021-03-08] MEDS: hydrALAZINE 20 MG/1 ML INJ IV PRN ×2 (05:33→13:49)
[2021-03-08] MEDS: HEPARIN 5,000 UNIT/1 ML VIAL SUB-Q SCH ×3 (05:34→22:07)
[2021-03-08] MEDS: FUROSEMIDE 40 MG/4 ML INJ IV SCH ×2 (05:34→18:23)
[2021-03-08 07:02] LABS: Basophils # (Auto) 0.1 K/mm3 (0.0-0.1); Basophils % (Auto) 0.7 % (0.0-1.8); Eosinophils # (Auto) 0.3 K/mm3 (0.0-0.4); Eosinophils % (Auto) 3.1 % (0.0-4.3); Hematocrit 26.3 % (30.3-42.9); Hemoglobin 8.8 gm/dl (10.1-14.3); Lymphocytes # (Auto) 2.5 K/mm3 (1.2-5.4); Lymphocytes % (Auto) 24.4 % (13.4-35.0); Mean Corpuscular HGB Conc 33 % (30-34); Mean Corpuscular Volume 95 fl (79-97); Monocytes % (Auto) 9.9 % (0.0-7.3); Platelet Count 170 K/mm3 (140-440); Red Blood Count 2.78 M/mm3 (3.65-5.03); Red Cell Distribution Width 14.5 % (13.2-15.2)
[2021-03-08 07:10] LABS: INR 1.13 (0.87-1.13)
[2021-03-08 07:15] LABS: Calcium 7.7 mg/dL (8.4-10.2)
[2021-03-08] MEDS ORDERED: POTASSIUM CHLORIDE ER 20 MEQ TAB PO NR (08:45)
[2021-03-08] MEDS: POTASSIUM CHLORIDE 10 MEQ 10 MEQ/100 ML BAG IV SCH ×2 (09:01→10:57)
[2021-03-08] MEDS: INSULIN LISPRO 100 UNIT/ML SUB-Q SCH ×4 (09:02→22:16)
--- NOTE | 2021-03-08 10:04 | Progress Note ---
Assessment and Plan Assessment and plan: #ESRD Patient is volume overloaded Started on hemodialysis Nephrology recommendations appreciated Needs hemodialysis chair to be set up prior to discharge #COVID-19 test-negative #DM Continue sliding scale #Hypertensive urgency Continue blood pressure medications #Hypokalemia Replete as needed #DVT ppx - heparin History Interval history: 66-year-old female with known history of diabetes mellitus, hypertension and end-stage renal disease however not on dialysis yet presents to the emergency room today complaining of nausea, vomiting and diarrhea with associated abdominal abdominal pain which has been ongoing for about 6 days. She denies any headache or dizziness, no fever or chills, no chest pain. However she has had some cough and shortness of breath. Cough has not been productive of any sputum. Patient denies any sick contacts and no recent travel. Denies any contact with anyone with COVID-19. She has not received Covid vaccination. Work-up in the emergency room today reveals elevated D-dimer of 1104, potassium of 3.2, BNP of about 48,000 Chest x-ray reveals no acute findings however CT of the abdomen and pelvis reveals groundglass opacities in the right lung base which may represent an infectious process, small bilateral pleural effusion with associated compressive atelectasis, disorganized intraperitoneal edema with body wall anasarca. No inflammatory process of the abdomen or pelvis. Patient is being admitted for nausea and vomiting and diarrhea and will also be evaluated for COVID-19. Long Lines Operator was also consulted for her end-stage renal disease. Hospital course 03/08. Patient had hemodialysis yesterday. Feels slightly better but still has generalized edema. Remains on IV antibiotics and diuretics. Appreciate ID and nephrology recommendations. Her potassium is low so we will replete. Patient will need to have hemodialysis chair set up prior to discharge. Plan to have hemodialysis per nephrology Hospitalist Physical - Physical exam Narrative exam: VITAL SIGNS: Reviewed. GENERAL: Awake HEAD: No signs of head trauma. EYES: Pupils are equal. Extraocular motions intact. MOUTH: Oropharynx is normal. NECK: No adenopathy, no JVD. CHEST: Diminished breath sounds CARDIAC: normal S1 and S2, without murmurs, gallops, or rubs. ABDOMEN: Soft, non tender and non distended. No rebound or guarding, and no masses palpated. Bowel Sounds normal. MUSCULOSKELETAL: Edema NEUROLOGIC EXAM: Alert and oriented x3. No focal neurologic deficits SKIN: No obvious lesions - Constitutional Vitals: Temp Pulse Resp BP Pulse Ox 98.1 F 77 16 182/65 95 03/08/21 04:20 03/08/21 05:33 03/08/21 04:20 03/08/21 05:33 03/08/21 04:20 HEART Score - HEART Score Troponin: Troponin T 0.172 ng/mL (0.00-0.029) H* 03/06/21 13:51 Results - Labs CBC & Chem 7: 03/08/21 06:09 03/08/21 06:09 Labs: Laboratory Last Values WBC 10.2 K/mm3 (4.5-11.0) 03/08/21 06:09 RBC 2.78 M/mm3 (3.65-5.03) L 03/08/21 06:09 Hgb 8.8 gm/dl (10.1-14.3) L 03/08/21 06:09 Hct 26.3 % (30.3-42.9) L 03/08/21 06:09 MCV 95 fl (79-97) 03/08/21 06:09 MCH 32 pg (28-32) 03/08/21 06:09 MCHC 33 % (30-34) 03/08/21 06:09 RDW 14.5 % (13.2-15.2) 03/08/21 06:09 Plt Count 170 K/mm3 (140-440) 03/08/21 06:09 Lymph % (Auto) 24.4 % (13.4-35.0) 03/08/21 06:09 [place] % (Auto) 9.9 % (0.0-7.3) H 03/08/21 06:09 Eos % (Auto) 3.1 % (0.0-4.3) 03/08/21 06:09 Baso % (Auto) 0.7 % (0.0-1.8) 03/08/21 06:09 Lymph # (Auto) 2.5 K/mm3 (1.2-5.4) 03/08/21 06:09 [place] # (Auto) 1.0 K/mm3 (0.0-0.8) H 03/08/21 06:09 Eos # (Auto) 0.3 K/mm3 (0.0-0.4) 03/08/21 06:09 Baso # (Auto) 0.1 K/mm3 (0.0-0.1) 03/08/21 06:09 Seg Neutrophils % 61.9 % (40.0-70.0) 03/08/21 06:09 Seg Neutrophils # 6.3 K/mm3 (1.8-7.7) 03/08/21 06:09 PT 14.4 Sec. (12.2-14.9) 03/08/21 06:09 INR 1.13 (0.87-1.13) 03/08/21 06:09 D-Dimer 1104.66 ng/mlDDU (0-234) H 03/06/21 23:39 Sodium 143 mmol/L (137-145) 03/08/21 06:09 Potassium 2.8 mmol/L (3.6-5.0) L* 03/08/21 06:09 Chloride 108.7 mmol/L (98-107) H 03/08/21 06:09 Carbon Dioxide 22 mmol/L (22-30) 03/08/21 06:09 Anion Gap 15 mmol/L 03/08/21 06:09 BUN 25 mg/dL (7-17) H 03/08/21 06:09 Creatinine 3.7 mg/dL (0.6-1.2) H 03/08/21 06:09 Estimated GFR 12 ml/min 03/08/21 06:09 BUN/Creatinine Ratio 7 % 03/08/21 06:09 Glucose 150 mg/dL (65-100) H 03/08/21 06:09 POC Glucose 155 mg/dL (70-105) H 03/08/21 07:44 Hemoglobin A1c 6.0 % (4-6) 03/07/21 00:00 Calcium 7.7 mg/dL (8.4-10.2) L 03/08/21 06:09 Magnesium 1.90 mg/dL (1.7-2.3) 03/06/21 13:51 Iron 43 ug/dL (37-170) 03/08/21 06:09 Ferritin 202.6 ng/mL (10.0-200.0) H 03/08/21 06:09 Total Bilirubin 1.30 mg/dL (0.1-1.2) H 03/06/21 13:51 AST 28 units/L (5-40) 03/06/21 13:51 ALT 16 units/L (7-56) 03/06/21 13:51 Alkaline Phosphatase 95 units/L (35-129) 03/06/21 13:51 Lactate Dehydrogenase 279 units/L (91-180) H 03/06/21 23:39 Total Creatine Kinase 534 units/L (30-135) H 03/06/21 13:51 Troponin T 0.172 ng/mL (0.00-0.029) H* 03/06/21 13:51 C-Reactive Protein 0.50 mg/dL (0.00-1.30) 03/06/21 23:39 NT-Pro-B Natriuret Pep 30708 pg/mL (0-900) H 03/06/21 13:51 Total Protein 5.8 g/dL (6.3-8.2) L 03/06/21 13:51 Albumin 2.8 g/dL (3.9-5) L 03/06/21 13:51 Albumin/Globulin Ratio 0.9 % 03/06/21 13:51 Triglycerides 139 mg/dL (2-149) 03/06/21 13:51 Cholesterol 171 mg/dL (50-199) 03/06/21 13:51 LDL Cholesterol Direct 113 mg/dL (50-130) 03/06/21 13:51 HDL Cholesterol 36 mg/dL (40-59) L 03/06/21 13:51 Cholesterol/HDL Ratio 4.75 % 03/06/21 13:51 Lipase 15 units/L (13-60) 03/06/21 13:51 Procalcitonin 0.05 ng/mL (<0.15) 03/06/21 23:39 Urine Color Yellow (Yellow) 03/07/21 Unknown Urine Turbidity Slightly-cloudy (Clear) 03/07/21 Unknown Urine pH 6.0 (5.0-7.0) 03/07/21 Unknown Ur Specific [place] 1.018 (1.003-1.030) 03/07/21 Unknown Urine Protein >500 mg/dL (Negative) 03/07/21 Unknown Urine Glucose (UA) >=500 mg/dL (Negative) 03/07/21 Unknown Urine Ketones Tr mg/dL (Negative) 03/07/21 Unknown Urine Blood Sm (Negative) 03/07/21 Unknown Urine Nitrite Neg (Negative) 03/07/21 Unknown Urine Bilirubin Neg (Negative) 03/07/21 Unknown Urine Urobilinogen < 2.0 mg/dL (<2.0) 03/07/21 Unknown Ur Leukocyte Esterase Neg (Negative) 03/07/21 Unknown Urine WBC (Auto) 19.0 /HPF (0.0-6.0) H 03/07/21 Unknown Urine RBC (Auto) 4.0 /HPF (0.0-6.0) 03/07/21 Unknown U Epithel Cells (Auto) 21.0 /HPF (0-13.0) H 03/07/21 Unknown Urine Bacteria (Auto) 1+ /HPF (Negative) 03/07/21 Unknown Urine Mucus Few /HPF 03/07/21 Unknown Coronavirus (PCR) Negative (Negative) 03/07/21 09:43 Hep Bs Antigen Non-reactive (Negative) 03/07/21 14:26 Hepatitis C Antibody Non-reactive (NonReactive) 03/07/21 14:26 López/IV: Voiding Method Bedside Commode Active Medications - Current Medications Current Medications: Generic Name Dose Route Start Last Admin Trade Name Freq PRN Reason Stop Dose Admin Acetaminophen 650 mg 03/07/21 02:02 Acetaminophen 325 Mg Tab PO Q4H PRN Pain MILD(1-3)/Fever >100.5/ROCHA Dextrose 0 ml 03/07/21 02:02 Dextrose 50% In Water (25gm) 50 Ml Syringe IV Q30MIN PRN Hypoglycemia Protocol Furosemide 40 mg 03/07/21 06:00 03/08/21 05:34 Furosemide 40 Mg/4 Ml Inj IV 40 mg BID@0600,1800 ARABELLA Administration Heparin Sodium (Porcine) 5,000 unit 03/07/21 06:00 03/08/21 05:34 Heparin 5,000 Unit/1 Ml Vial SUB-Q 5,000 unit Q8HR ARABELLA Administration Heparin Sodium (Porcine) 1,000 unit 03/07/21 09:24 Heparin 10,000 Units/10 Ml Vial IV CHLOÉ PRN hemodialysis Hydralazine HCl 10 mg 03/07/21 05:39 03/08/21 05:33 Hydralazine 20 Mg/1 Ml Inj IV 10 mg Q4H PRN Administration Blood Pressure Sodium Chloride 100 mls @ 999 mls/hr 03/07/21 09:24 Nacl 0.9% IV CHLOÉ PRN Hypotension Potassium Chloride 10 meq in 100 mls @ 100 mls/hr 03/08/21 10:00 03/08/21 09:01 Kcl 10meq/100ml IV 03/08/21 11:59 100 mls/hr Q1H ARABELLA Administration Insulin Human Lispro 0 unit 03/07/21 07:30 03/08/21 09:02 Insulin Lispro 100 Unit/Ml SUB-Q 2 unit ACHS ARABELLA Administration Protocol Magnesium Hydroxide 30 ml 03/07/21 02:02 Magnesium Hydroxide (Mom) Oral Liqd Udc PO Q4H PRN Constipation Morphine Sulfate 2 mg 03/07/21 02:02 03/07/21 18:02 Morphine 2 Mg/1 Ml Inj IV 2 mg Q4H PRN Administration Pain, Moderate (4-6) Ondansetron HCl 4 mg 03/07/21 02:02 03/08/21 05:33 Ondansetron 4 Mg/2 Ml Inj IV 4 mg Q8H PRN Administration Nausea And Vomiting Potassium Chloride 40 meq 03/08/21 08:45 03/08/21 09:00 Potassium Chloride Er 20 Meq Tab PO 03/08/21 12:00 40 meq ONCE@0845 NR Administration Sodium Chloride 10 ml 03/07/21 10:00 03/08/21 09:00 Sodium Chloride 0.9% 10 Ml Flush Syringe IV 10 ml BID ARABELLA Administration Sodium Chloride 10 ml 03/07/21 02:02 Sodium Chloride 0.9% 10 Ml Flush Syringe IV PRN PRN LINE FLUSH Nutrition/Malnutrition Assess - Dietary Evaluation Nutrition/Malnutrition Findings: Nutrition Notes Start: 03/07/21 14:17 Freq: Status: Active Protocol: Document 03/07/21 14:17 CW (Rec: 03/07/21 14:30 CW [id number]) Nutrition Notes Need for Assessment generated from: MD Order,Education Initial or Follow up Assessment Current Diagnosis CKD (stage V CKD),Diabetes, Hypertension Other Pertinent Diagnosis Covid PUI Current Diet Cardiac Consistent Carbohydrate Labs/Tests 03/06 BG 177 HgbA1c 6 NT Pro B 07682 Pertinent Medications Lasix Humalog KCl 10 mEq Height 5 ft 7 in Weight 138.346 kg [place] Body Weight (kg) 61.36 BMI 47.7 Intake Prior to Admission Poor Weight change and time frame 8% weight gain per last admission weight on 10/26/2020 likely r/t to need for HD Weight Status Morbidly Obese Subjective/Other Information MD consult for diet education. Per chart, pt has yet to begin hemodialysis yet has access to intitate HD and pt c /o N/V/D x6 days. Pt did not answer phone for nutritional interview. Per RN, pt has not eaten much of meals. No reports of vomiting at this time. Current % PO Poor (25-49%) Minimum of two criteria No Energy Intake (severe) < or equal to 50% Estimated Energy Requirement > or equal to 5 days #1 Nutrition Diagnosis Inadequate oral intake Etiology N/V/D As Evidenced by Signs and Symptoms Pt chart reports N/V/D x 6 days Is patient on ventilator? No Is Patient Ambulatory and/or Out of Bed Yes REE-([place]. Jeor-ambulatory/OOB) [ 2542.904 [id number]] Kcal/Kg value to use for calculation 15 Approximate Energy Requirements Using 2074 kcal/Kg Calculation Used for Recommendations Kcal/kg Additional Notes protein needs: 120g (>1.2 g/ kgAdjBW for HD) fluid needs: 1 ml/kcal Nutrition Intervention Change Diet Order: Change Diet to Renal Consistent Carbohydrate diet Add Supplement/Snack (indicate name/kcal [place] QD /protein ) Provides kCal: 425 Provides Protein (gm) 19 Goal #1 Meet at least 75% of kcal and protein needs via PO Goal #2 Understand the importance of nutrition therapy for renal and heart healthy diet Anticipated Discharge Needs: Renal Consistent Carbohydrate Diet Follow-Up By: 03/09/21 Additional Comments F/U for PO intakes, ONS tolerance, and diet education
--- NOTE | 2021-03-08 14:33 | Progress Note ---
Assessment and Plan Cultures: Covid pending A/P: 66-year-old female past medical history diabetes, hypertension, ESRD not on HD admitted with GI upset and fluid overload #N/V/D: possibly secondary to uremia with worsening renal function and new need for HD. Also need to consider COVID, and test is pending. #Fluid overload: associated with worsening renal function #ESRD now on HD: nephro on board #Right sided GGO: procalcitonin likely to be unrevealing as will likely be falsely elevated in setting of ESRD #DM2: tight glycemic control for best outcomes. Recs: -Covid negative. No need for antibiotics. Symptoms likely due to renal failure/volume overload. -HD per nephro Thank you for the consult, we will sign off. Please call with questions. Gabbi Castelan MD [facility] ([facility]) O: [phone] F: [phone] Subjective Date of service: 03/08/21 Principal diagnosis: CKD stage 5 Interval history: Afebrile, white count Covid negative Objective - Exam Narrative Exam: Physical exam deferred to reduce risk of transmission of COVID-19. Please refer to primary team's note. - Constitutional Vitals: Vital Signs Temp Pulse Resp BP Pulse Ox 99.5 F 79 16 199/75 98 03/08/21 13:51 03/08/21 13:51 03/08/21 13:51 03/08/21 13:51 03/08/21 07:00 Temperature -Last 24 Hours Temperature 99.5 F Temperature 98.1 F Temperature 99.3 F Temperature 98.2 F Temperature 98.2 F - Labs CBC & Chem 7: 03/08/21 06:09 03/08/21 06:09 Labs: Abnormal lab results 03/07/21 03/08/21 03/08/21 Range/Units 21:12 06:09 06:09 RBC 2.78 L (3.65-5.03) M/mm3 Hgb 8.8 L (10.1-14.3) gm/dl Hct 26.3 L (30.3-42.9) % [place] % (Auto) 9.9 H (0.0-7.3) % [place] # (Auto) 1.0 H (0.0-0.8) K/mm3 Potassium 2.8 L* (3.6-5.0) mmol/L Chloride 108.7 H (98-107) mmol/L BUN 25 H (7-17) mg/dL Creatinine 3.7 H (0.6-1.2) mg/dL Glucose 150 H (65-100) mg/dL POC Glucose 183 H (70-105) mg/dL Calcium 7.7 L (8.4-10.2) mg/dL Ferritin (10.0-200.0) ng/mL 03/08/21 03/08/21 03/08/21 Range/Units 06:09 07:44 12:03 RBC (3.65-5.03) M/mm3 Hgb (10.1-14.3) gm/dl Hct (30.3-42.9) % [place] % (Auto) (0.0-7.3) % [place] # (Auto) (0.0-0.8) K/mm3 Potassium (3.6-5.0) mmol/L Chloride (98-107) mmol/L BUN (7-17) mg/dL Creatinine (0.6-1.2) mg/dL Glucose (65-100) mg/dL POC Glucose 155 H 151 H (70-105) mg/dL Calcium (8.4-10.2) mg/dL Ferritin 202.6 H (10.0-200.0) ng/mL
[2021-03-08] MEDS: MORPHINE 2 MG/1 ML INJ IV PRN (15:47)
[2021-03-08] MEDS: EPOETIN ALFA-EPBX 10,000 UNIT/1 ML VIAL IV PRN (15:48)
--- NOTE | 2021-03-08 17:51 | Electrocardiograph Report ---
[facility] Test Date: 2021-03-06 Test Time: 14:12:57 Pat Name: SENAIT GRAYSON Department: Room: A387 Gender: F Injection Molding Machine Setter: : 1955 Requested By: LB WHITE Order Number: [id number] Reading MD: Shania Parnell Measurements Intervals [place] Rate: 80 P: 23 OK: 246 QRS: -54 QRSD: 127 T: 86 QT: 341 QTc: 395 Interpretive Statements Sinus rhythm Prolonged OK interval Left bundle branch block No previous ECG available for comparison Electronically Signed On 03-08-2021 17:51:03 EDT by Shania Parnell
[2021-03-09] MEDS: FUROSEMIDE 40 MG/4 ML INJ IV SCH (06:20)
[2021-03-09] MEDS: HEPARIN 5,000 UNIT/1 ML VIAL SUB-Q SCH ×3 (06:21→22:17)
[2021-03-09] MEDS: ONDANSETRON 4 MG/2 ML INJ IV PRN (06:32)
[2021-03-09] MEDS: INSULIN LISPRO 100 UNIT/ML SUB-Q SCH ×4 (07:31→22:17)
[2021-03-09 08:30] LABS: Hematocrit 26.4 % (30.3-42.9); Mean Corpuscular HGB Conc 34 % (30-34); Mean Corpuscular Volume 95 fl (79-97); Platelet Count 158 K/mm3 (140-440); Red Blood Count 2.77 M/mm3 (3.65-5.03)
[2021-03-09 08:50] LABS: Albumin 2.6 g/dL (3.9-5); Calcium 7.5 mg/dL (8.4-10.2)
--- NOTE | 2021-03-09 09:18 | Progress Note ---
Assessment and Plan Assessment and plan: #ESRD Patient is volume overloaded Started on hemodialysis Nephrology recommendations appreciated Needs hemodialysis chair to be set up prior to discharge #COVID-19 test-negative #DM Continue sliding scale #Hypertensive urgency Continue to adjust blood pressure medications #Hypokalemia Replete as needed #DVT ppx - heparin History Interval history: 66-year-old female with known history of diabetes mellitus, hypertension and end-stage renal disease however not on dialysis yet presents to the emergency room today complaining of nausea, vomiting and diarrhea with associated abdominal abdominal pain which has been ongoing for about 6 days. She denies any headache or dizziness, no fever or chills, no chest pain. However she has had some cough and shortness of breath. Cough has not been productive of any sputum. Patient denies any sick contacts and no recent travel. Denies any contact with anyone with COVID-19. She has not received Covid vaccination. Work-up in the emergency room today reveals elevated D-dimer of 1104, potassium of 3.2, BNP of about 48,000 Chest x-ray reveals no acute findings however CT of the abdomen and pelvis reveals groundglass opacities in the right lung base which may represent an infectious process, small bilateral pleural effusion with associated compressive atelectasis, disorganized intraperitoneal edema with body wall anasarca. No inflammatory process of the abdomen or pelvis. Patient is being admitted for nausea and vomiting and diarrhea and will also be evaluated for COVID-19. Medical Fee Clerk was also consulted for her end-stage renal disease. Hospital course 03/08. Patient had hemodialysis yesterday. Feels slightly better but still has generalized edema. Remains on IV diuretics. Appreciate ID and nephrology recommendations. Her potassium is low so we will replete. Patient will need to have hemodialysis chair set up prior to discharge. Plan to have hemodialysis per nephrology 03/09. No complaints today. Needs HD chair. Hospitalist Physical - Physical exam Narrative exam: VITAL SIGNS: Reviewed. GENERAL: Awake HEAD: No signs of head trauma. EYES: Pupils are equal. Extraocular motions intact. MOUTH: Oropharynx is normal. NECK: No adenopathy, no JVD. CHEST: Diminished breath sounds CARDIAC: normal S1 and S2, without murmurs, gallops, or rubs. ABDOMEN: Soft, non tender and non distended. No rebound or guarding, and no masses palpated. Bowel Sounds normal. MUSCULOSKELETAL: Edema NEUROLOGIC EXAM: Alert and oriented x3. No focal neurologic deficits SKIN: No obvious lesions - Constitutional Vitals: Temp Pulse Resp BP Pulse Ox 32.1 F L 79 20 185/53 92 03/09/21 04:40 03/09/21 04:40 03/09/21 04:40 03/09/21 04:40 03/09/21 04:40 HEART Score - HEART Score Troponin: Troponin T 0.172 ng/mL (0.00-0.029) H* 03/06/21 13:51 Results - Labs CBC & Chem 7: 03/09/21 08:10 03/09/21 08:10 Labs: Laboratory Last Values WBC 9.6 K/mm3 (4.5-11.0) 03/09/21 08:10 RBC 2.77 M/mm3 (3.65-5.03) L 03/09/21 08:10 Hgb 9.0 gm/dl (10.1-14.3) L 03/09/21 08:10 Hct 26.4 % (30.3-42.9) L 03/09/21 08:10 MCV 95 fl (79-97) 03/09/21 08:10 MCH 33 pg (28-32) H 03/09/21 08:10 MCHC 34 % (30-34) 03/09/21 08:10 RDW 15.0 % (13.2-15.2) 03/09/21 08:10 Plt Count 158 K/mm3 (140-440) 03/09/21 08:10 Lymph % (Auto) 24.4 % (13.4-35.0) 03/08/21 06:09 [place] % (Auto) 9.9 % (0.0-7.3) H 03/08/21 06:09 Eos % (Auto) 3.1 % (0.0-4.3) 03/08/21 06:09 Baso % (Auto) 0.7 % (0.0-1.8) 03/08/21 06:09 Lymph # (Auto) 2.5 K/mm3 (1.2-5.4) 03/08/21 06:09 [place] # (Auto) 1.0 K/mm3 (0.0-0.8) H 03/08/21 06:09 Eos # (Auto) 0.3 K/mm3 (0.0-0.4) 03/08/21 06:09 Baso # (Auto) 0.1 K/mm3 (0.0-0.1) 03/08/21 06:09 Seg Neutrophils % 61.9 % (40.0-70.0) 03/08/21 06:09 Seg Neutrophils # 6.3 K/mm3 (1.8-7.7) 03/08/21 06:09 PT 14.4 Sec. (12.2-14.9) 03/08/21 06:09 INR 1.13 (0.87-1.13) 03/08/21 06:09 D-Dimer 1104.66 ng/mlDDU (0-234) H 03/06/21 23:39 Sodium 142 mmol/L (137-145) 03/09/21 08:10 Potassium 3.5 mmol/L (3.6-5.0) L 03/09/21 08:10 Chloride 108.1 mmol/L (98-107) H 03/09/21 08:10 Carbon Dioxide 23 mmol/L (22-30) 03/09/21 08:10 Anion Gap 14 mmol/L 03/09/21 08:10 BUN 19 mg/dL (7-17) H 03/09/21 08:10 Creatinine 3.7 mg/dL (0.6-1.2) H 03/09/21 08:10 Estimated GFR 12 ml/min 03/09/21 08:10 BUN/Creatinine Ratio 5 % 03/09/21 08:10 Glucose 158 mg/dL (65-100) H 03/09/21 08:10 POC Glucose 182 mg/dL (70-105) H 03/08/21 21:16 Hemoglobin A1c 6.0 % (4-6) 03/07/21 00:00 Calcium 7.5 mg/dL (8.4-10.2) L 03/09/21 08:10 Magnesium 1.90 mg/dL (1.7-2.3) 03/06/21 13:51 Iron 43 ug/dL (37-170) 03/08/21 06:09 Ferritin 202.6 ng/mL (10.0-200.0) H 03/08/21 06:09 Total Bilirubin 0.60 mg/dL (0.1-1.2) 03/09/21 08:10 AST 32 units/L (5-40) 03/09/21 08:10 ALT 20 units/L (7-56) 03/09/21 08:10 Alkaline Phosphatase 87 units/L (35-129) 03/09/21 08:10 Lactate Dehydrogenase 279 units/L (91-180) H 03/06/21 23:39 Total Creatine Kinase 534 units/L (30-135) H 03/06/21 13:51 Troponin T 0.172 ng/mL (0.00-0.029) H* 03/06/21 13:51 C-Reactive Protein 0.50 mg/dL (0.00-1.30) 03/06/21 23:39 NT-Pro-B Natriuret Pep 26011 pg/mL (0-900) H 03/06/21 13:51 Total Protein 5.1 g/dL (6.3-8.2) L 03/09/21 08:10 Albumin 2.6 g/dL (3.9-5) L 03/09/21 08:10 Albumin/Globulin Ratio 1.0 % 03/09/21 08:10 Triglycerides 139 mg/dL (2-149) 03/06/21 13:51 Cholesterol 171 mg/dL (50-199) 03/06/21 13:51 LDL Cholesterol Direct 113 mg/dL (50-130) 03/06/21 13:51 HDL Cholesterol 36 mg/dL (40-59) L 03/06/21 13:51 Cholesterol/HDL Ratio 4.75 % 03/06/21 13:51 Lipase 15 units/L (13-60) 03/06/21 13:51 Procalcitonin 0.05 ng/mL (<0.15) 03/06/21 23:39 Urine Color Yellow (Yellow) 03/07/21 Unknown Urine Turbidity Slightly-cloudy (Clear) 03/07/21 Unknown Urine pH 6.0 (5.0-7.0) 03/07/21 Unknown Ur Specific [place] 1.018 (1.003-1.030) 03/07/21 Unknown Urine Protein >500 mg/dL (Negative) 03/07/21 Unknown Urine Glucose (UA) >=500 mg/dL (Negative) 03/07/21 Unknown Urine Ketones Tr mg/dL (Negative) 03/07/21 Unknown Urine Blood Sm (Negative) 03/07/21 Unknown Urine Nitrite Neg (Negative) 03/07/21 Unknown Urine Bilirubin Neg (Negative) 03/07/21 Unknown Urine Urobilinogen < 2.0 mg/dL (<2.0) 03/07/21 Unknown Ur Leukocyte Esterase Neg (Negative) 03/07/21 Unknown Urine WBC (Auto) 19.0 /HPF (0.0-6.0) H 03/07/21 Unknown Urine RBC (Auto) 4.0 /HPF (0.0-6.0) 03/07/21 Unknown U Epithel Cells (Auto) 21.0 /HPF (0-13.0) H 03/07/21 Unknown Urine Bacteria (Auto) 1+ /HPF (Negative) 03/07/21 Unknown Urine Mucus Few /HPF 03/07/21 Unknown Coronavirus (PCR) Negative (Negative) 03/07/21 09:43 Hep Bs Antigen Non-reactive (Negative) 03/07/21 14:26 Hepatitis C Antibody Non-reactive (NonReactive) 03/07/21 14:26 López/IV: Voiding Method Bedside Commode Active Medications - Current Medications Current Medications: Generic Name Dose Route Start Last Admin Trade Name Freq PRN Reason Stop Dose Admin Acetaminophen 650 mg 03/07/21 02:02 Acetaminophen 325 Mg Tab PO Q4H PRN Pain MILD(1-3)/Fever >100.5/ROCHA Dextrose 0 ml 03/07/21 02:02 Dextrose 50% In Water (25gm) 50 Ml Syringe IV Q30MIN PRN Hypoglycemia Protocol Heparin Sodium (Porcine) 5,000 unit 03/07/21 06:00 03/09/21 06:21 Heparin 5,000 Unit/1 Ml Vial SUB-Q 5,000 unit Q8HR ARABELLA Administration Heparin Sodium (Porcine) 1,000 unit 03/07/21 09:24 Heparin 10,000 Units/10 Ml Vial IV CHLOÉ PRN hemodialysis Hydralazine HCl 10 mg 03/07/21 05:39 03/08/21 13:49 Hydralazine 20 Mg/1 Ml Inj IV 10 mg Q4H PRN Administration Blood Pressure Sodium Chloride 100 mls @ 999 mls/hr 03/07/21 09:24 Nacl 0.9% IV CHLOÉ PRN Hypotension Insulin Human Lispro 0 unit 03/07/21 07:30 03/09/21 07:31 Insulin Lispro 100 Unit/Ml SUB-Q 2 unit ACHS ARABELLA Administration Protocol Magnesium Hydroxide 30 ml 03/07/21 02:02 Magnesium Hydroxide (Mom) Oral Liqd Udc PO Q4H PRN Constipation Morphine Sulfate 2 mg 03/07/21 02:02 03/08/21 15:47 Morphine 2 Mg/1 Ml Inj IV 2 mg Q4H PRN Administration Pain, Moderate (4-6) Ondansetron HCl 4 mg 03/07/21 02:02 03/09/21 06:32 Ondansetron 4 Mg/2 Ml Inj IV 4 mg Q8H PRN Administration Nausea And Vomiting Potassium Chloride 40 meq 03/09/21 09:14 Potassium Chloride Er 20 Meq Tab PO 03/09/21 09:15 ONCE ONE Sodium Chloride 10 ml 03/07/21 10:00 03/09/21 09:15 Sodium Chloride 0.9% 10 Ml Flush Syringe IV 10 ml BID ARABELLA Administration Sodium Chloride 10 ml 03/07/21 02:02 Sodium Chloride 0.9% 10 Ml Flush Syringe IV PRN PRN LINE FLUSH Nutrition/Malnutrition Assess - Dietary Evaluation Nutrition/Malnutrition Findings: Nutrition Notes Start: 03/07/21 14:17 Freq: Status: Active Protocol: Document 03/07/21 14:17 CW (Rec: 03/07/21 14:30 CW [id number]) Nutrition Notes Need for Assessment generated from: MD Order,Education Initial or Follow up Assessment Current Diagnosis CKD (stage V CKD),Diabetes, Hypertension Other Pertinent Diagnosis Covid PUI Current Diet Cardiac Consistent Carbohydrate Labs/Tests 03/06 BG 177 HgbA1c 6 NT Pro B 51058 Pertinent Medications Lasix Humalog KCl 10 mEq Height 5 ft 7 in Weight 138.346 kg [place] Body Weight (kg) 61.36 BMI 47.7 Intake Prior to Admission Poor Weight change and time frame 8% weight gain per last admission weight on 10/26/2020 likely r/t to need for HD Weight Status Morbidly Obese Subjective/Other Information MD consult for diet education. Per chart, pt has yet to begin hemodialysis yet has access to intitate HD and pt c /o N/V/D x6 days. Pt did not answer phone for nutritional interview. Per RN, pt has not eaten much of meals. No reports of vomiting at this time. Current % PO Poor (25-49%) Minimum of two criteria No Energy Intake (severe) < or equal to 50% Estimated Energy Requirement > or equal to 5 days #1 Nutrition Diagnosis Inadequate oral intake Etiology N/V/D As Evidenced by Signs and Symptoms Pt chart reports N/V/D x 6 days Is patient on ventilator? No Is Patient Ambulatory and/or Out of Bed Yes REE-([facility]-ambulatory/OOB) [ 2542.904 [id number]] Kcal/Kg value to use for calculation 15 Approximate Energy Requirements Using 5 kcal/Kg Calculation Used for Recommendations Kcal/kg Additional Notes protein needs: 120g (>1.2 g/ kgAdjBW for HD) fluid needs: 1 ml/kcal Nutrition Intervention Change Diet Order: Change Diet to Renal Consistent Carbohydrate diet Add Supplement/Snack (indicate name/kcal Nepro QD /protein ) Provides kCal: 425 Provides Protein (gm) 19 Goal #1 Meet at least 75% of kcal and protein needs via PO Goal #2 Understand the importance of nutrition therapy for renal and heart healthy diet Anticipated Discharge Needs: Renal Consistent Carbohydrate Diet Follow-Up By: 03/09/21 Additional Comments F/U for PO intakes, ONS tolerance, and diet education
[2021-03-09] MEDS ORDERED: POTASSIUM CHLORIDE ER 20 MEQ TAB PO NR ×2 (09:30→14:00)
[2021-03-09] MEDS ORDERED: amLODIPine 10 MG TAB PO SCH (10:00)
--- NOTE | 2021-03-09 10:22 | Progress Note ---
Assessment and Plan - Patient Problems (1) Chronic kidney disease, stage 5 Current Visit: Yes Status: Acute Plan to address problem: Chronic kidney disease progressed to end-stage renal disease with fluid overload. Nausea and vomiting may be related to uremia but also could be related to gastroparesis. COVID-19 negative. Patient already has an AV fistula. She is severely volume overloaded despite taking oral diuretics. Started dialysis 03/07 using 17-gauge needles in her new AV fistula. Tolerated treatments so far with no complications. Hemodialysis again today. Will need to arrange for outpatient dialysis. patient safety manager assisting with placement at [facility] dialysis (2) Nausea & vomiting Current Visit: Yes Status: Acute Plan to address problem: Give antiemetics as needed. Follow-up (3) Diarrhea Current Visit: Yes Status: Acute Plan to address problem: Improving (4) Hypertensive urgency Current Visit: Yes Status: Acute Plan to address problem: Elevated blood pressure due to intolerance of oral antihypertensive medications. Blood pressure improved on usual medications but still not at goal. Will adjust and follow-up (5) Type 2 diabetes mellitus with diabetic chronic kidney disease Current Visit: Yes Status: Acute Plan to address problem: Blood sugar management by primary attending (6) Anemia in chronic kidney disease Current Visit: Yes Status: Acute Plan to address problem: Erythropoietin on dialysis. Check iron stores (7) Hypokalemia Current Visit: Yes Status: Acute Plan to address problem: Hypokalemia probably secondary to GI losses. We will dialyze on a 4K bath. Subjective Date of service: 03/09/21 Principal diagnosis: CKD stage 5 Interval history: Patient seen lying in bed on dialysis. She has no new complaints. Vomited earlier today. Feels better now. No shortness of breath. Appetite is still poor Objective - Exam Narrative Exam: Obese middle-aged female lying in bed in no acute distress HEENT: NCAT, Neck: Supple, no venous distention CVS: S1S2 RRR with no murmur, rub or gallop Chest: Clear to auscultation Abdomen: Protuberant, soft, nontender, no organomegaly, bowel sounds are present Extremities: 2+ pitting edema Genitourinary deferred Skin warm and dry with no rash Neuro: Awake, alert no focal deficits - Vital Signs Vital signs: Vital Signs - 12hr 03/09/21 04:40 Temperature 32.1 F L Pulse Rate 79 Respiratory 20 Rate Blood Pressure 185/53 O2 Sat by Pulse 92 Oximetry - Lab 03/09/21 08:10 03/09/21 08:10 Most recent lab results Calcium 7.5 mg/dL (8.4-10.2) L 03/09/21 08:10 Magnesium 1.90 mg/dL (1.7-2.3) 03/06/21 13:51 Medications & Allergies - Medications Allergies/Adverse Reactions: Allergies Penicillins Allergy (Verified 07/19/16 00:38) Rash tetracycline Allergy (Verified 07/19/16 00:38) Rash Home Medications: Home Medications Medication Instructions Recorded Confirmed Last Taken Type Aspirin 81 mg PO QDAY tablet 07/27/16 12/28/20 12/27/20 Rx AtorvaSTATin [Lipitor] 80 mg PO QHS 10/26/20 12/28/20 12/27/20 History Bumetanide [Bumetanide 2 mg tab] 2 mg PO DAILY 10/26/20 12/28/20 12/27/20 Histo ry Cholecalciferol (Vitamin D3) 50,000 unit PO QWEEK 10/26/20 12/28/20 12/27/20 History [Vitamin D3 50,000UNIT CAP] Insulin Glargine,Hum.rec.anlog 42 units SQ QHS 10/26/20 10/26/20 12/27/20 History [Toujeo Solostar] Sodium Bicarbonate 650 mg PO BID 10/26/20 12/28/20 12/27/20 History calcitrioL [Rocaltrol] 0.25 mcg PO 3XW 10/26/20 12/28/20 12/27/20 History hydrALAZINE [Apresoline TAB] 50 mg PO BID 10/26/20 12/28/20 12/27/20 History lisinopriL [Zestril TAB] 40 mg PO QDAY 10/26/20 12/28/20 12/27/20 History metOLazone [Zaroxolyn] 5 mg PO QDAY 10/26/20 12/28/20 12/27/20 History Esomeprazole Magnesium [Nexium 20 mg PO DAILY 12/22/20 12/22/20 12/27/20 History 24Hr] Gabapentin [Neurontin] 800 mg PO BID 12/22/20 12/22/2021 History Glimepiride [Amaryl] 4 mg PO BID 12/22/20 12/22/20 12/27/20 History Metoprolol Xl [Metoprolol 12.5 mg PO BID 12/22/20 12/28/20 12/28/20 07:00 History SUCCINATE ER TAB] Saxagliptin HCl [Onglyza] 5 mg PO DAILY 12/22/20 12/22/20 12/27/20 History Vitamin D2 1 cap PO 3XW 12/22/20 12/22/20 12/27/20 History HYDROcodone/APAP 5-325 [[place] 1 each PO Q4HR PRN #30 tablet 12/28/20 Unknown Rx 5/325] Active Medications: Generic Name Dose Route Start Last Admin Trade Name Freq PRN Reason Stop Dose Admin Acetaminophen 650 mg 03/07/21 02:02 Acetaminophen 325 Mg Tab PO Q4H PRN Pain MILD(1-3)/Fever >100.5/ROCHA Amlodipine Besylate 10 mg 03/09/21 10:00 Amlodipine 10 Mg Tab PO QDAY ARABELLA Dextrose 0 ml 03/07/21 02:02 Dextrose 50% In Water (25gm) 50 Ml Syringe IV Q30MIN PRN Hypoglycemia Protocol Heparin Sodium (Porcine) 5,000 unit 03/07/21 06:00 03/09/21 06:21 Heparin 5,000 Unit/1 Ml Vial SUB-Q 5,000 unit Q8HR ARABELLA Administration Heparin Sodium (Porcine) 1,000 unit 03/07/21 09:24 Heparin 10,000 Units/10 Ml Vial IV CHLOÉ PRN hemodialysis Hydralazine HCl 10 mg 03/07/21 05:39 03/08/21 13:49 Hydralazine 20 Mg/1 Ml Inj IV 10 mg Q4H PRN Administration Blood Pressure Sodium Chloride 100 mls @ 999 mls/hr 03/07/21 09:24 Nacl 0.9% IV CHLOÉ PRN Hypotension Insulin Human Lispro 0 unit 03/07/21 07:30 03/09/21 07:31 Insulin Lispro 100 Unit/Ml SUB-Q 2 unit ACHS ARABELLA Administration Protocol Magnesium Hydroxide 30 ml 03/07/21 02:02 Magnesium Hydroxide (Mom) Oral Liqd Udc PO Q4H PRN Constipation Morphine Sulfate 2 mg 03/07/21 02:02 03/08/21 15:47 Morphine 2 Mg/1 Ml Inj IV 2 mg Q4H PRN Administration Pain, Moderate (4-6) Ondansetron HCl 4 mg 03/07/21 02:02 03/09/21 06:32 Ondansetron 4 Mg/2 Ml Inj IV 4 mg Q8H PRN Administration Nausea And Vomiting Potassium Chloride 40 meq 03/09/21 09:30 Potassium Chloride Er 20 Meq Tab PO 03/09/21 13:00 ONCE@0930 NR Sodium Chloride 10 ml 03/07/21 10:00 03/09/21 09:15 Sodium Chloride 0.9% 10 Ml Flush Syringe IV 10 ml BID ARABELLA Administration Sodium Chloride 10 ml 03/07/21 02:02 Sodium Chloride 0.9% 10 Ml Flush Syringe IV PRN PRN LINE FLUSH
[2021-03-09 10:33] LABS: Band Neutrophils # (Manual) 0.2 K/mm3; Platelet Estimate Consistent w Auto; RBC Morphology Normal; Total Cells Counted 100
[2021-03-09] MEDS: EPOETIN ALFA-EPBX 10,000 UNIT/1 ML VIAL IV PRN (12:49)
[2021-03-09] MEDS: LISINOPRIL 40 MG TAB PO SCH (13:53)
[2021-03-09] MEDS: METOPROLOL TARTRATE 25 MG TAB PO SCH ×2 (13:54→22:17)
[2021-03-09] MEDS: hydrALAZINE 25 MG TAB PO SCH (22:16)
[2021-03-10] MEDS: amLODIPine 5 MG TAB PO SCH ×2 (05:35→09:48)
[2021-03-10] MEDS: HEPARIN 5,000 UNIT/1 ML VIAL SUB-Q SCH (06:08)
[2021-03-10] MEDS: INSULIN LISPRO 100 UNIT/ML SUB-Q SCH ×2 (08:34→13:17)
--- NOTE | 2021-03-10 08:42 | Progress Note ---
Assessment and Plan - Patient Problems (1) Chronic kidney disease, stage 5 Current Visit: Yes Status: Acute Plan to address problem: Chronic kidney disease progressed to end-stage renal disease with fluid overload. Nausea and vomiting may be related to uremia but also could be related to gastroparesis. COVID-19 negative. Patient already has an AV fistula. She is severely volume overloaded despite taking oral diuretics. Started dialysis 03/07 using 17-gauge needles in her new AV fistula. Tolerated treatments so far with no complications. Patient has outpatient dialysis arranged at [facility]. She will transfer to [facility] once a chair is available in about 1 and half weeks. Okay to discharge from renal perspective once blood pressure improves (2) Nausea & vomiting Current Visit: Yes Status: Acute Plan to address problem: Resolved. Probably secondary to uremia. (3) Diarrhea Current Visit: Yes Status: Acute Plan to address problem: Resolved (4) Hypertensive urgency Current Visit: Yes Status: Acute Plan to address problem: Blood pressure is still high. Amlodipine is started and I increased the dose of metoprolol. Follow-up blood pressure and if better this afternoon, patient could go home (5) Type 2 diabetes mellitus with diabetic chronic kidney disease Current Visit: Yes Status: Acute Plan to address problem: Blood sugar management by primary attending (6) Anemia in chronic kidney disease Current Visit: Yes Status: Acute Plan to address problem: Erythropoietin on dialysis. Check iron stores (7) Hypokalemia Current Visit: Yes Status: Acute Plan to address problem: Hypokalemia probably secondary to GI losses. We will dialyze on a 4K bath. Subjective Date of service: 03/10/21 Principal diagnosis: CKD stage 5 Interval history: Patient seen lying in bed on dialysis. She has no new complaints. Feels better much better and wants to go home. No shortness of breath. Appetite is improving Objective - Exam Narrative Exam: Obese middle-aged female lying in bed in no acute distress HEENT: NCAT, Neck: Supple, no venous distention CVS: S1S2 RRR with no murmur, rub or gallop Chest: Clear to auscultation Abdomen: Protuberant, soft, nontender, no organomegaly, bowel sounds are present Extremities: 2+ pitting edema Genitourinary deferred Skin warm and dry with no rash Neuro: Awake, alert no focal deficits - Vital Signs Vital signs: Vital Signs - 12hr 03/09/21 03/10/21 21:32 04:23 Temperature 100.0 F H 98.5 F Pulse Rate 64 Respiratory 16 16 Rate Blood Pressure 180/51 200/65 O2 Sat by Pulse 93 Oximetry - Lab 03/09/21 08:10 03/09/21 08:10 Most recent lab results Calcium 7.5 mg/dL (8.4-10.2) L 03/09/21 08:10 Magnesium 1.90 mg/dL (1.7-2.3) 03/06/21 13:51 Medications & Allergies - Medications Allergies/Adverse Reactions: Allergies Penicillins Allergy (Verified 07/19/16 00:38) Rash tetracycline Allergy (Verified 07/19/16 00:38) Rash Home Medications: Home Medications Medication Instructions Recorded Confirmed Last Taken Type Aspirin 81 mg PO QDAY tablet 07/27/16 12/28/20 12/27/20 Rx AtorvaSTATin [Lipitor] 80 mg PO QHS 10/26/20 12/28/20 12/27/20 History Bumetanide [Bumetanide 2 mg tab] 2 mg PO DAILY 10/26/20 12/28/20 12/27/20 History Cholecalciferol (Vitamin D3) 50,000 unit PO QWEEK 10/26/20 12/28/20 12/27/20 History [Vitamin D3 50,000UNIT CAP] Insulin Glargine,Hum.rec.anlog 42 units SQ QHS 10/26/20 10/26/20 12/27/20 History [Toujeo Solostar] Sodium Bicarbonate 650 mg PO BID 10/26/20 12/28/20 12/27/20 History calcitrioL [Rocaltrol] 0.25 mcg PO 3XW 10/26/20 12/28/20 12/27/20 History hydrALAZINE [Apresoline TAB] 50 mg PO BID 10/26/20 12/28/20 12/27/20 History lisinopriL [Zestril TAB] 40 mg PO QDAY 10/26/20 12/28/20 12/27/20 History metOLazone [Zaroxolyn] 5 mg PO QDAY 10/26/20 12/28/20 12/27/20 History Esomeprazole Magnesium [Nexium 20 mg PO DAILY 12/22/20 12/22/20 12/27/20 History 24Hr] Gabapentin [Neurontin] 800 mg PO BID 12/22/20 12/22/20 12/27/20 History Glimepiride [Amaryl] 4 mg PO BID 12/22/20 12/22/20 12/27/20 History Metoprolol Xl [Metoprolol 12.5 mg PO BID 12/22/20 12/28/20 12/28/20 07:00 History SUCCINATE ER TAB] Saxagliptin HCl [Onglyza] 5 mg PO DAILY 12/22/20 12/22/20 12/27/20 History Vitamin D2 1 cap PO 3XW 12/22/20 12/22/20 12/27/20 History HYDROcodone/APAP 5-325 [[place] 1 each PO Q4HR PRN #30 tablet 12/28/20 Unknown Rx 5/325] Active Medications: Generic Name Dose Route Start Last Admin Trade Name Freq PRN Reason Stop Dose Admin Acetaminophen 650 mg 03/07/21 02:02 Acetaminophen 325 Mg Tab PO Q4H PRN Pain MILD(1-3)/Fever >100.5/ROCHA Amlodipine Besylate 5 mg 03/10/21 05:00 03/10/21 05:35 Amlodipine 5 Mg Tab PO 5 mg QDAY ARABELLA Administration Dextrose 0 ml 03/07/21 02:02 Dextrose 50% In Water (25gm) 50 Ml Syringe IV Q30MIN PRN Hypoglycemia Protocol Heparin Sodium (Porcine) 5,000 unit 03/07/21 06:00 03/10/21 06:08 Heparin 5,000 Unit/1 Ml Vial SUB-Q Not Given Q8HR ARABELLA Heparin Sodium (Porcine) 1,000 unit 03/07/21 09:24 Heparin 10,000 Units/10 Ml Vial IV CHLOÉ PRN hemodialysis Hydralazine HCl 10 mg 03/07/21 05:39 03/08/21 13:49 Hydralazine 20 Mg/1 Ml Inj IV 10 mg Q4H PRN Administration Blood Pressure Hydralazine HCl 25 mg 03/09/21 22:00 03/09/21 22:16 Hydralazine 25 Mg Tab PO 25 mg Q12HR ARABELLA Administration Sodium Chloride 100 mls @ 999 mls/hr 03/07/21 09:24 Nacl 0.9% IV CHLOÉ PRN Hypotension Insulin Human Lispro 0 unit 03/07/21 07:30 03/10/21 08:34 Insulin Lispro 100 Unit/Ml SUB-Q 2 unit ACHS ARABELLA Administration Protocol Lisinopril 40 mg 03/09/21 11:00 03/09/21 13:53 Lisinopril 40 Mg Tab PO 40 mg QDAY ARABELLA Administration Magnesium Hydroxide 30 ml 03/07/21 02:02 Magnesium Hydroxide (Mom) Oral Liqd Udc PO Q4H PRN Constipation Metoprolol Tartrate 25 mg 03/09/21 11:00 03/09/21 22:17 Metoprolol Tartrate 25 Mg Tab PO 25 mg BID ARABELLA Administration Morphine Sulfate 2 mg 03/07/21 02:02 03/08/21 15:47 Morphine 2 Mg/1 Ml Inj IV 2 mg Q4H PRN Administration Pain, Moderate (4-6) Ondansetron HCl 4 mg 03/07/21 02:02 03/09/21 06:32 Ondansetron 4 Mg/2 Ml Inj IV 4 mg Q8H PRN Administration Nausea And Vomiting Sodium Chloride 10 ml 03/07/21 10:00 03/09/21 22:17 Sodium Chloride 0.9% 10 Ml Flush Syringe IV 10 ml BID ARABELLA Administration Sodium Chloride 10 ml 03/07/21 02:02 Sodium Chloride 0.9% 10 Ml Flush Syringe IV PRN PRN LINE FLUSH
[2021-03-10] MEDS: LISINOPRIL 40 MG TAB PO SCH (09:47)
[2021-03-10] MEDS: hydrALAZINE 25 MG TAB PO SCH (09:47)
[2021-03-10] MEDS ORDERED: METOPROLOL TARTRATE 50 MG TAB PO SCH (10:00)
[2021-03-10 10:34] VITALS: BP 181/57
[2021-03-10] MEDS ORDERED: NIFEdipine XL 60 MG TAB PO SCH ×2 (11:00→22:00)
--- NOTE | 2021-03-10 11:04 | Discharge Summary ---
Providers - Providers Date of Admission: 03/07/21 02:02 Date of discharge: 03/10/21 Attending physician: MALIA PAZ 03/07/21 02:02 Consult to Physician [CONS] Routine Comment: Consulting Provider: CHAS DRAPER Physician Instructions: Reason For Exam: PUI 03/07/21 02:03 Consult to Dietitian/Nutrition [CONS] Routine Physician Instructions: Reason For Exam: Reason for Consult: Diet education 03/07/21 05:00 Consult to Physician [CONS] Routine Comment: Dr. Herr spoke with Dr. King @ [id number] Consulting Provider: DALIA KING Physician Instructions: Reason For Exam: ESRD 03/07/21 09:26 Consult to Case Management [CONS] Routine Services Needed at Discharge: Other Notified:: cm Comment:: Arrange outpatient dialysis at [facility] Primary care physician: WATER METER MECHANIC Hospitalization Condition: Stable Hospital course: 66-year-old female with known history of diabetes mellitus, hypertension and end-stage renal disease however not on dialysis yet presents to the emergency room today complaining of nausea, vomiting and diarrhea with associated abdominal abdominal pain which has been ongoing for about 6 days. She denies any headache or dizziness, no fever or chills, no chest pain. However she has had some cough and shortness of breath. Cough has not been productive of any sputum. Patient denies any sick contacts and no recent travel. Denies any contact with anyone with COVID-19. She has not received Covid vaccination. Work-up in the emergency room today reveals elevated D-dimer of 1104, potassium of 3.2, BNP of about 48,000 Chest x-ray reveals no acute findings however CT of the abdomen and pelvis reveals groundglass opacities in the right lung base which may represent an infectious process, small bilateral pleural effusion with associated compressive atelectasis, disorganized intraperitoneal edema with body wall anasarca. No inflammatory process of the abdomen or pelvis. Patient is being admitted for nausea and vomiting and diarrhea and will also be evaluated for COVID-19. Animal Pathology Teacher was also consulted for her end-stage renal disease. Hospital course 03/08. Patient had hemodialysis yesterday. Feels slightly better but still has generalized edema. Remains on IV diuretics. Appreciate ID and nephrology recommendations. Her potassium is low so we will replete. Patient will need to have hemodialysis chair set up prior to discharge. Plan to have hemodialysis per nephrology 03/09. No complaints today. Needs HD chair. 03/10. Blood pressure medications adjusted. Her hemodialysis chair has been set up so patient will be discharged. She will need to follow-up with her primary medical doctor within a week for blood pressure monitoring. She agrees with treatment Disposition: DC-01 TO HOME OR SELFCARE Final Discharge Diagnosis (Prints w/discharge instructions): JEROD on CKD needing HD Time spent for discharge: 35 mins Core Measure Documentation - Palliative Care Palliative Care/ Comfort Measures: Not Applicable - Core Measures Any of the following diagnoses?: none Exam - Physical Exam Narrative exam: VITAL SIGNS: Reviewed. GENERAL: Awake HEAD: No signs of head trauma. EYES: Pupils are equal. Extraocular motions intact. MOUTH: Oropharynx is normal. NECK: No adenopathy, no JVD. CHEST: Diminished breath sounds CARDIAC: normal S1 and S2, without murmurs, gallops, or rubs. ABDOMEN: Soft, non tender and non distended. No rebound or guarding, and no masses palpated. Bowel Sounds normal. MUSCULOSKELETAL: Edema NEUROLOGIC EXAM: Alert and oriented x3. No focal neurologic deficits SKIN: No obvious lesions - Constitutional Vitals: Temp Pulse Resp BP Pulse Ox 98.5 F 60 16 181/57 91 03/10/21 04:23 03/10/21 10:22 03/10/21 04:23 03/10/21 10:22 03/10/21 10:22 Plan Diet: low salt, renal Additional Instructions: Continue blood pressure medications as ordered. Follow up with PCP in a week for BP check. Continue HD as scheduled Follow up with: PRIMARY CAREMD [Primary Care Provider] - 3-5 Days Prescriptions: NIFEdipine XL [Procardia Xl] 60 mg PO Q12HR #60 tablet
--- NOTE | 2021-03-10 21:28 | Progress Note ---
Assessment and Plan - Patient Problems (1) Chronic kidney disease, stage 5 Current Visit: Yes Status: Acute Plan to address problem: Chronic kidney disease progressed to end-stage renal disease with fluid overload. Nausea and vomiting may be related to uremia but also could be related to gastroparesis. COVID-19 negative. Patient already has an AV fistula. She is severely volume overloaded despite taking oral diuretics. Started dialysis 03/07 using 17-gauge needles in her new AV fistula. Tolerated treatment with no complications. Hemodialysis again today and then tomorrow. Will need to arrange for outpatient dialysis. manager software assisting with placement (2) Nausea & vomiting Current Visit: Yes Status: Acute Plan to address problem: Give antiemetics as needed. Follow-up (3) Diarrhea Current Visit: Yes Status: Acute Plan to address problem: Improving (4) Hypertensive urgency Current Visit: Yes Status: Acute Plan to address problem: Elevated blood pressure due to intolerance of oral antihypertensive medications. Resume medications follow-up blood pressure (5) Type 2 diabetes mellitus with diabetic chronic kidney disease Current Visit: Yes Status: Acute Plan to address problem: Blood sugar management by primary attending (6) Anemia in chronic kidney disease Current Visit: Yes Status: Acute Plan to address problem: Erythropoietin on dialysis. Check iron stores (7) Hypokalemia Current Visit: Yes Status: Acute Plan to address problem: Hypokalemia probably secondary to GI losses. Supplement potassium and follow- up. We will dialyze on a 4K bath Subjective Date of service: 03/08/21 Principal diagnosis: CKD stage 5 Objective - Exam Narrative Exam: Obese middle-aged female lying in bed in no acute distress HEENT: NCAT, Neck: Supple, no venous distention CVS: S1S2 RRR with no murmur, rub or gallop Chest: Clear to auscultation Abdomen: Protuberant, soft, nontender, no organomegaly, bowel sounds are present Extremities: 2-3+ pitting edema Genitourinary deferred Skin warm and dry with no rash Neuro: Awake, alert no focal deficits - Vital Signs Vital signs: Vital Signs - 12hr 03/08/21 03/08/21 04:20 05:33 Temperature 98.1 F Pulse Rate 79 77 Respiratory 16 Rate Blood Pressure 208/61 182/65 O2 Sat by Pulse 95 Oximetry - Lab 03/08/21 06:09 03/08/21 06:09 Most recent lab results Calcium 7.7 mg/dL (8.4-10.2) L 03/08/21 06:09 Magnesium 1.90 mg/dL (1.7-2.3) 03/06/21 13:51 Medications & Allergies - Medications Allergies/Adverse Reactions: Allergies Penicillins Allergy (Verified 07/19/16 00:38) Rash tetracycline Allergy (Verified 07/19/16 00:38) Rash Home Medications: Home Medications Medication Instructions Recorded Confirmed Last Taken Type Aspirin 81 mg PO QDAY tablet 07/27/16 12/28/20 12/27/20 Rx AtorvaSTATin [Lipitor] 80 mg PO QHS 10/26/20 12/28/20 12/27/20 History Bumetanide [Bumetanide 2 mg tab] 2 mg PO DAILY 10/26/20 12/28/20 12/27/20 History Cholecalciferol (Vitamin D3) 50,000 unit PO QWEEK 10/26/20 12/28/20 12/27/20 History [Vitamin D3 50,000UNIT CAP] Insulin Glargine,Hum.rec.anlog 42 units SQ QHS 10/26/20 10/26/20 12/27/20 His tory [Toujeo Solostar] Sodium Bicarbonate 650 mg PO BID 10/26/20 12/28/20 12/27/20 History calcitrioL [Rocaltrol] 0.25 mcg PO 3XW 10/26/20 12/28/20 12/27/20 History hydrALAZINE [Apresoline TAB] 50 mg PO BID 10/26/20 12/28/20 12/27/20 History lisinopriL [Zestril TAB] 40 mg PO QDAY 10/26/20 12/28/20 12/27/20 History metOLazone [Zaroxolyn] 5 mg PO QDAY 10/26/20 12/28/20 12/27/20 History Esomeprazole Magnesium [Nexium 20 mg PO DAILY 12/22/20 12/22/20 12/27/20 History 24Hr] Gabapentin [Neurontin] 800 mg PO BID 12/22/20 12/22/20 12/27/20 History Glimepiride [Amaryl] 4 mg PO BID 12/22/20 12/22/20 12/27/20 History Metoprolol Xl [Metoprolol 12.5 mg PO BID 12/22/20 12/28/20 12/28/20 07:00 History SUCCINATE ER TAB] Saxagliptin HCl [Onglyza] 5 mg PO DAILY 12/22/20 12/22/20 12/27/20 History Vitamin D2 1 cap PO 3XW 12/22/20 12/22/20 12/27/20 History HYDROcodone/APAP 5-325 [[place] 1 each PO Q4HR PRN #30 tablet 12/28/20 Unknown Rx 5/325] Active Medications: Generic Name Dose Route Start Last Admin Trade Name Freq PRN Reason Stop Dose Admin Acetaminophen 650 mg 03/07/21 02:02 Acetaminophen 325 Mg Tab PO Q4H PRN Pain MILD(1-3)/Fever >100.5/ROCHA Dextrose 0 ml 03/07/21 02:02 Dextrose 50% In Water (25gm) 50 Ml Syringe IV Q30MIN PRN Hypoglycemia Protocol Furosemide 40 mg 03/07/21 06:00 03/08/21 05:34 Furosemide 40 Mg/4 Ml Inj IV 40 mg BID@0600,1800 ARABELLA Administration Heparin Sodium (Porcine) 5,000 unit 03/07/21 06:00 03/08/21 05:34 Heparin 5,000 Unit/1 Ml Vial SUB-Q 5,000 unit Q8HR ARABELLA Administration Heparin Sodium (Porcine) 1,000 unit 03/07/21 09:24 Heparin 10,000 Units/10 Ml Vial IV CHLOÉ PRN hemodialysis Hydralazine HCl 10 mg 03/07/21 05:39 03/08/21 05:33 Hydralazine 20 Mg/1 Ml Inj IV 10 mg Q4H PRN Administration Blood Pressure Sodium Chloride 100 mls @ 999 mls/hr 03/07/21 09:24 Nacl 0.9% IV CHLOÉ PRN Hypotension Potassium Chloride 10 meq in 100 mls @ 100 mls/hr 03/08/21 10:00 03/08/21 09:01 Kcl 10meq/100ml IV 03/08/21 11:59 100 mls/hr Q1H ARABELLA Administration Insulin Human Lispro 0 unit 03/07/21 07:30 03/08/21 09:02 Insulin Lispro 100 Unit/Ml SUB-Q 2 unit ACHS ARABELLA Administration Protocol Magnesium Hydroxide 30 ml 03/07/21 02:02 Magnesium Hydroxide (Mom) Oral Liqd Udc PO Q4H PRN Constipation Morphine Sulfate 2 mg 03/07/21 02:02 03/07/21 18:02 Morphine 2 Mg/1 Ml Inj IV 2 mg Q4H PRN Administration Pain, Moderate (4-6) Ondansetron HCl 4 mg 03/07/21 02:02 03/08/21 05:33 Ondansetron 4 Mg/2 Ml Inj IV 4 mg Q8H PRN Administration Nausea And Vomiting Potassium Chloride 40 meq 03/08/21 08:45 03/08/21 09:00 Potassium Chloride Er 20 Meq Tab PO 03/08/21 12:00 40 meq ONCE@0845 NR Administration Sodium Chloride 10 ml 03/07/21 10:00 03/08/21 09:00 Sodium Chloride 0.9% 10 Ml Flush Syringe IV 10 ml BID ARABELLA Administration Sodium Chloride 10 ml 03/07/21 02:02 Sodium Chloride 0.9% 10 Ml Flush Syringe IV PRN PRN LINE FLUSH
== END 2021-03-10 13:46 | disposition home or self-care (01) | DRG 640 ==
LOC: ED 13:10 → 3A 03-07 02:02
PROVIDERS: ADMIT Internal Medicine Geriatric Medicine; ATTEND Internal Medicine
PROC: 5A1D70Z Performance of Urinary Filtration, Intermittent, Less than 6 Hours Per Day (ICD-10-PCS; principal; 2021-03-07)
PROC: 5A1D70Z Performance of Urinary Filtration, Intermittent, Less than 6 Hours Per Day (ICD-10-PCS; 2021-03-08)
PROC: 5A1D70Z Performance of Urinary Filtration, Intermittent, Less than 6 Hours Per Day (ICD-10-PCS; 2021-03-09)
DX: E87.70 Fluid overload, unspecified (principal); N18.6 End stage renal disease; N17.9 Acute kidney failure, unspecified; I12.0 Hypertensive chronic kidney disease with stage 5 chronic kidney disease or end stage renal disease; I16.0 Hypertensive urgency; K52.9 Noninfective gastroenteritis and colitis, unspecified; R82.81 Pyuria; I44.7 Left bundle-branch block, unspecified; Z20.822 Contact with and (suspected) exposure to COVID-19; E11.22 Type 2 diabetes mellitus with diabetic chronic kidney disease; D63.1 Anemia in chronic kidney disease; E87.6 Hypokalemia; M19.90 Unspecified osteoarthritis, unspecified site; K21.9 Gastro-esophageal reflux disease without esophagitis; Z90.49 Acquired absence of other specified parts of digestive tract; Z88.0 Allergy status to penicillin; Z88.1 Allergy status to other antibiotic agents; Z79.82 Long term (current) use of aspirin; Z79.899 Other long term (current) drug therapy; Z79.4 Long term (current) use of insulin
CPT/HCPCS: 36415; 71046; 74176; 80048; 80053; 80061; 81001; 82550; 82728; 82947; 82962; 83036; 83540; 83615; 83690; 83735; 83880; 84132; 84145; 84484; 85007; 85025; 85379; 85610; 86140; 86706; 86803; 87086; 93005; 93306; 96365; 96375; G0378; J0360; J0885; J1200; J1644; J1815; J1940; J1956; J2270; J2405; J2765; J3480; J7030; U0003

== ENCOUNTER 2021-07-30 13:32 | Inpatient (IN) | payer MEDICARE ==
--- NOTE | 2021-07-30 14:25 | Emergency Department Report ---
HPI - General Chief Complaint: Altered Mental Status Time Seen by Provider: 07/30/21 14:17 - HPI HPI: Room 5 The patient is a 66-year-old female present with chief complaint of altered mental status. Per EMS the patient was scheduled for hemodialysis today when she did not show up the dialysis center contacted family. Family went to check on the patient in her home and found her with decreased responsiveness on the floor in the bathroom. EMS reports the patient was initially hypotensive so she was administered fluid input arrival to the ED the patient was found to be normotensive. The patient grimaces to sternal rub but does not awaken and a nswer questions ED Past Medical Hx - Past Medical History Hx Hypertension: Yes (X 6 YRS) Hx Diabetes: Yes Hx GERD: Yes Hx Renal Disease: Yes (Acute) Hx Arthritis: Yes (SPINAL,FEET & KNEES) - Surgical History Hx Cholecystectomy: Yes Additional Surgical History: left knee. fistual to LUE - Family History Family history: no significant - Social History Smoking Status: Unknown if ever smoked - Medications Home Medications: Home Medications Medication Instructions Recorded Confirmed Last Taken Type Aspirin 81 mg PO QDAY tablet 07/27/16 07/30/21 12/27/20 Rx AtorvaSTATin [Lipitor] 80 mg PO QHS 10/26/20 07/30/21 12/27/20 History Bumetanide [Bumetanide 2 mg tab] 2 mg PO DAILY 10/26/20 07/30/21 12/27/20 History Cholecalciferol (Vitamin D3) 50,000 unit PO QWEEK 10/26/20 07/30/21 12/27/20 History [Vitamin D3 50,000UNIT CAP] hydrALAZINE [Apresoline TAB] 50 mg PO BID 10/26/20 07/30/21 12/27/20 History lisinopriL [Zestril TAB] 40 mg PO QDAY 10/26/20 07/30/21 12/27/20 History metOLazone [Zaroxolyn] 5 mg PO QDAY 10/26/20 07/30/21 12/27/20 History Gabapentin [Neurontin] 800 mg PO BID 12/22/20 07/30/21 12/27/20 History Glimepiride [Amaryl] 4 mg PO BID 12/22/20 07/30/21 12/27/20 History Metoprolol Xl [Metoprolol 12.5 mg PO BID 12/22/20 07/30/21 12/28/20 07:00 History SUCCINATE ER TAB] ED Review of Systems ROS: Stated complaint: LOW BLOOD PRESSURE/AMS Other details as noted in HPI Comment: Unobtainable due to pts medical conditions Physical Exam - Physical Exam Vital Signs: Vital Signs 07/30/21 14:13 Temperature 97.9 F Pulse Rate 58 L Respiratory 12 Rate Blood Pressure 168/63 [Left] O2 Sat by Pulse 96 Oximetry Physical Exam: GENERAL: The patient is well-developed well-nourished female asleep on stretcher only grimacing to sternal rub. [] HEENT: Normocephalic. Atraumatic. Pupils 2 mm and reactive bilaterally NECK: Supple. Trachea midline CHEST/LUNGS: Clear to auscultation. There is no respiratory distress noted. HEART/CARDIOVASCULAR: Regular. There is no tachycardia. There is no gallop rub or murmur. ABDOMEN: Abdomen is soft, nontender. Patient has normal bowel sounds. There is no abdominal distention. SKIN: There is no rash. There is no edema. There is no diaphoresis. NEURO: The patient is obtunded and only grimaces to sternal rub. MUSCULOSKELETAL: There is no evidence of acute injury. ED Course Vital Signs 07/30/21 14:13 Temperature 97.9 F Pulse Rate 58 L Respiratory 12 Rate Blood Pressure 168/63 [Left] O2 Sat by Pulse 96 Oximetry ED Medical Decision Making - Lab Data Result diagrams: 07/30/21 14:42 07/30/21 14:42 Laboratory Tests 07/30/21 07/30/21 07/30/21 14:42 14:42 14:42 WBC 12.2 H RBC 3.50 L Hgb 11.6 Hct 34.7 MCV 99 H MCH 33 H MCHC 34 RDW 15.9 H Plt Count 154 Lymph % (Auto) 11.1 L [place] % (Auto) 7.2 Eos % (Auto) 0.1 Baso % (Auto) 0.7 Lymph # (Auto) 1.4 [place] # (Auto) 0.9 H Eos # (Auto) 0.0 Baso # (Auto) 0.1 Seg Neutrophils % 80.9 H Seg Neutrophils # 9.9 H PT 13.2 INR 0.95 APTT 23.4 L Sodium 140 Potassium 4.5 Chloride 100.7 Carbon Dioxide 23 Anion Gap 21 BUN 52 H Creatinine 5.0 H Estimated GFR 9 BUN/Creatinine Ratio 10 Glucose 236 H Lactic Acid Calcium 9.0 Magnesium 2.70 H Total Bilirubin 0.90 AST 30 ALT 29 Alkaline Phosphatase 67 Ammonia Total Creatine Kinase 503 H CK-MB (CK-2) 5.2 H CK-MB (CK-2) Rel Index 1.0 Troponin T 0.123 H* Total Protein 7.1 Albumin 4.1 Albumin/Globulin Ratio 1.4 Triglycerides 93 Cholesterol 131 LDL Cholesterol Direct 70 HDL Cholesterol 47 Cholesterol/HDL Ratio 2.78 TSH Free T4 Urine Color Urine Turbidity Urine pH Ur Specific [place] Urine Protein Urine Glucose (UA) Urine Ketones Urine Blood Urine Nitrite Ur Reducing Substances Urine Bilirubin Urine Ictotest Urine Urobilinogen Ur Leukocyte Esterase Urine WBC (Auto) Urine RBC (Auto) U Epithel Cells (Auto) Salicylates Urine Opiates Screen Urine Methadone Screen Acetaminophen Ur Barbiturates Screen Ur Phencyclidine Scrn Ur Amphetamines Screen U Benzodiazepines Scrn Urine Cocaine Screen U Marijuana (THC) Screen Drugs of Abuse Note Plasma/Serum Alcohol 07/30/21 07/30/21 07/30/21 14:42 14:42 14:42 WBC RBC Hgb Hct MCV MCH MCHC RDW Plt Count Lymph % (Auto) [place] % (Auto) Eos % (Auto) Baso % (Auto) Lymph # (Auto) [place] # (Auto) Eos # (Auto) Baso # (Auto) Seg Neutrophils % Seg Neutrophils # PT INR APTT Sodium Potassium Chloride Carbon Dioxide Anion Gap BUN Creatinine Estimated GFR BUN/Creatinine Ratio Glucose Lactic Acid Calcium Magnesium Total Bilirubin AST ALT Alkaline Phosphatase Ammonia 21.0 L Total Creatine Kinase CK-MB (CK-2) CK-MB (CK-2) Rel Index Troponin T Total Protein Albumin Albumin/Globulin Ratio Triglycerides Cholesterol LDL Cholesterol Direct HDL Cholesterol Cholesterol/HDL Ratio TSH 0.056 L Free T4 1.18 Urine Color Urine Turbidity Urine pH Ur Specific [place] Urine Protein Urine Glucose (UA) Urine Ketones Urine Blood Urine Nitrite Ur Reducing Substances Urine Bilirubin Urine Ictotest Urine Urobilinogen Ur Leukocyte Esterase Urine WBC (Auto) Urine RBC (Auto) U Epithel Cells (Auto) Salicylates Urine Opiates Screen Urine Methadone Screen Acetaminophen Ur Barbiturates Screen Ur Phencyclidine Scrn Ur Amphetamines Screen U Benzodiazepines Scrn Urine Cocaine Screen U Marijuana (THC) Screen Drugs of Abuse Note Plasma/Serum Alcohol < 0.01 07/30/21 07/30/21 07/30/21 14:42 14:42 14:42 WBC RBC Hgb Hct MCV MCH MCHC RDW Plt Count Lymph % (Auto) [place] % (Auto) Eos % (Auto) Baso % (Auto) Lymph # (Auto) [place] # (Auto) Eos # (Auto) Baso # (Auto) Seg Neutrophils % Seg Neutrophils # PT INR APTT Sodium Potassium Chloride Carbon Dioxide Anion Gap BUN Creatinine Estimated GFR BUN/Creatinine Ratio Glucose Lactic Acid 1.30 Calcium Magnesium Total Bilirubin AST ALT Alkaline Phosphatase Ammonia Total Creatine Kinase CK-MB (CK-2) CK-MB (CK-2) Rel Index Troponin T Total Protein Albumin Albumin/Globulin Ratio Triglycerides Cholesterol LDL Cholesterol Direct HDL Cholesterol Cholesterol/HDL Ratio TSH Free T4 Urine Color Urine Turbidity Urine pH Ur Specific [place] Urine Protein Urine Glucose (UA) Urine Ketones Urine Blood Urine Nitrite Ur Reducing Substances Urine Bilirubin Urine Ictotest Urine Urobilinogen Ur Leukocyte Esterase Urine WBC (Auto) Urine RBC (Auto) U Epithel Cells (Auto) Salicylates < 0.3 L Urine Opiates Screen Urine Methadone Screen Acetaminophen 5.0 L Ur Barbiturates Screen Ur Phencyclidine Scrn Ur Amphetamines Screen U Benzodiazepines Scrn Urine Cocaine Screen U Marijuana (THC) Screen Drugs of Abuse Note Plasma/Serum Alcohol 07/30/21 07/30/21 Unknown Unknown WBC RBC Hgb Hct MCV MCH MCHC RDW Plt Count Lymph % (Auto) [place] % (Auto) Eos % (Auto) Baso % (Auto) Lymph # (Auto) [place] # (Auto) Eos # (Auto) Baso # (Auto) Seg Neutrophils % Seg Neutrophils # PT INR APTT Sodium Potassium Chloride Carbon Dioxide Anion Gap BUN Creatinine Estimated GFR BUN/Creatinine Ratio Glucose Lactic Acid Calcium Magnesium Total Bilirubin AST ALT Alkaline Phosphatase Ammonia Total Creatine Kinase CK-MB (CK-2) CK-MB (CK-2) Rel Index Troponin T Total Protein Albumin Albumin/Globulin Ratio Triglycerides Cholesterol LDL Cholesterol Direct HDL Cholesterol Cholesterol/HDL Ratio TSH Free T4 Urine Color Yellow Urine Turbidity Clear Urine pH 6.0 Ur Specific [place] 1.011 Urine Protein >500 Urine Glucose (UA) >=500 Urine Ketones Neg Urine Blood Sm Urine Nitrite Neg Ur Reducing Substances Not Reportable Urine Bilirubin Neg Urine Ictotest Not Reportable Urine Urobilinogen < 2.0 Ur Leukocyte Esterase Neg Urine WBC (Auto) < 1.0 Urine RBC (Auto) 1.0 U Epithel Cells (Auto) 1.0 Salicylates Urine Opiates Screen Negative Urine Methadone Screen Negative Acetaminophen Ur Barbiturates Screen Negative Ur Phencyclidine Scrn Negative Ur Amphetamines Screen Negative U Benzodiazepines Scrn Negative Urine Cocaine Screen Negative U Marijuana (THC) Screen Negative Drugs of Abuse Note Disclamer Plasma/Serum Alcohol - EKG Data -: EKG Interpreted by Me EKG shows normal: sinus rhythm Rate: normal - EKG Data When compared to previous EKG there are: previous EKG unavailable Interpretation: other (No ischemic changes seen) - Radiology Data Radiology results: report reviewed (CT head, chest x-ray), image reviewed (CT head, chest x-ray) interpreted by me: [address] [address] XRay Report Signed Patient: SENAIT GRAYSON MR#: [id number] : 1955 Acct:[id number] Age/Sex: 66 / F ADM Date: 07/30/21 Loc: ED Attending Dr: Ordering Physician: JEREMIAH LIRIANO MD Date of Service: 07/30/21 Procedure(s): XR chest 1V ap Accession Number(s): [id number] cc: JEREMIAH LIRIANO MD Fluoro Time In Minutes: CHEST 1 VIEW INDICATION / CLINICAL INFORMATION: Altered mental status. COMPARISON: 03/06/2021 FINDINGS: SUPPORT DEVICES: None. HEART / MEDIASTINUM: Borderline cardiac enlargement. LUNGS / PLEURA: Borderline interstitial pulmonary edema is present. No area of consolidation or pleural effusion noted. No pneumothorax. ADDITIONAL FINDINGS: No significant additional findings. IMPRESSION: 1. Borderline interstitial pulmonary edema. Signer Name: Jasmin Espino MD Signed: 07/30/2021 4:57 PM Workstation Name: [id number] Transcribed By: JR Dictated By: Jasmin Espino MD Electronically Authenticated By: Jasmin Espino MD Signed Date/Time: 07/30/211656 DD/ 54 TD/TT: Print Cancel [address] [address] Cat Scan Report Signed Patient: SENAIT GRAYSON MR#: [id number] : 1955 Acct:[id number] Age/Sex: 66 / F ADM Date: 07/30/21 Loc: ED Attending Dr: Ordering Physician: JEREMIAH LIRIANO MD Date of Service: 07/30/21 Procedure(s): CT head/brain wo con Accession Number(s): [id number] cc: JEREMIAH LIRIANO MD CT head/brain wo con INDICATION: Altered Mental Status. TECHNIQUE: All CT scans at this location are performed using CT dose reduction for ALARA by means of automated exposure control. COMPARISON: None available. FINDINGS: There is no evidence of hemorrhage, hydrocephalus, brain edema, or mass effect/mass lesion. There is overall normal brain formation and brain volume for the patient's age. Ventricular and cisternal/sulcal size is normal for age. The included paranasal sinuses and mastoid air cells are clear. The orbits appear unremarkable. IMPRESSION: 1. No acute intracranial abnormality. Signer Name: Rosendo Cote MD Signed: 07/30/2021 4:23 PM Workstation Name: [id number] Transcribed By: ONUR Dictated By: Rosendo Cote MD Electronically Authenticated By: Rosendo Wheeler MD Signed Date/Time: 07/30/211622 DD/ 21 TD/TT: Print Cancel - Differential Diagnosis ICH, substance abuse, rhabdomyolysis, hyperammonemia Critical care attestation.: If time is entered above; I have spent that time in minutes in the direct care of this critically ill patient, excluding procedure time. ED Disposition Clinical Impression: Altered mental state Disposition: ADMITTED INPATIENT Is pt being admited?: Yes Does the pt Need Aspirin: Yes Condition: Serious Time of Disposition: 18:16 (Hospitalist called (Dr. Damian))
[2021-07-30 15:22] LABS: Basophils # (Auto) 0.1 K/mm3 (0.0-0.1); Basophils % (Auto) 0.7 % (0.0-1.8); Eosinophils % (Auto) 0.1 % (0.0-4.3); Hematocrit 34.7 % (30.3-42.9); Hemoglobin 11.6 gm/dl (10.1-14.3); Lymphocytes # (Auto) 1.4 K/mm3 (1.2-5.4); Lymphocytes % (Auto) 11.1 % (13.4-35.0); Mean Corpuscular HGB Conc 34 % (30-34); Mean Corpuscular Volume 99 fl (79-97); Monocytes # (Auto) 0.9 K/mm3 (0.0-0.8); Monocytes % (Auto) 7.2 % (0.0-7.3); Platelet Count 154 K/mm3 (140-440); Red Cell Distribution Width 15.9 % (13.2-15.2)
[2021-07-30 15:32] LABS: INR 0.95 (0.87-1.13); Partial Thromboplastin Time 23.4 Sec. (24.2-36.6)
[2021-07-30 15:46] LABS: Albumin 4.1 g/dL (3.9-5); Creatine Kinase MB 5.2 ng/mL (0.0-4.0)
[2021-07-30 15:56] LABS: Free T4 (Free Thyroxine) 1.18 ng/dL (0.76-1.46)
[2021-07-30 16:15] LABS: Chol/HDL Ratio 2.78 %
[2021-07-30 16:23] LABS: Bilirubin,Urine NEG (Negative); Blood,Urine SM (Negative); Color,Urine Yellow (Yellow); Urobilinogen,Urine < 2.0 mg/dL (<2.0); WBC,Urine < 1.0 /HPF (0.0-6.0)
[2021-07-30 16:25] LABS: Protein,Urine >500 mg/dL (Negative)
--- NOTE | 2021-07-30 16:27 | Cat Scan Report ---
CT head/brain wo con INDICATION: Altered Mental Status. TECHNIQUE: All CT scans at this location are performed using CT dose reduction for ALARA by means of automated e xposure control. COMPARISON: None available. FINDINGS: There is no evidence of hemorrhage, hydrocephalus, brain edema, or mass effect/mass lesion. There is overall normal brain formation and brain volume for the patient's age. Ventricular and cisternal/sulc al size is normal for age. The included paranasal sinuses and mastoid air cells are clear. The orbits appear unremarkable. IMPRESSION: 1. No acute intracranial abnormality. Signer Name: Rosendo Cote MD Signed: 07/30/2021 4:23 PM Workstation Name: [id number]
[2021-07-30 16:28] LABS: Amphetamine Screen,Urine Negative; Benzodiazepines Screen,Urine Negative; Cannabinoid Screen,Urine Negative; Cocaine Screen,Urine Negative; Methadone Screen,Urine Negative; Opiate Screen,Urine Negative
--- NOTE | 2021-07-30 17:01 | XRay Report ---
CHEST 1 VIEW INDICATION / CLINICAL INFORMATION: Altered mental status. COMPARISON: 03/06/2021 FINDINGS: SUPPORT DEVICES: None. HEART / MEDIASTINUM: Borderline cardiac enlargement. LUNGS / PLEURA: Borderline interstitial pulmonary edema is present. No area of consolidation or pleur al effusion noted. No pneumothorax. ADDITIONAL FINDINGS: No significant additional findings. IMPRESSION: 1. Borderline interstitial pulmonary edema. Signer Name: Jasmin Espino MD Signed: 07/30/2021 4:57 PM Workstation Name: [id number]
[2021-07-30] MEDS ORDERED: ASPIRIN 300 MG RECT SUPP PR ONE (18:16)
[2021-07-30] MEDS ORDERED: ONDANSETRON 4 MG/2 ML INJ IV PRN (22:50)
[2021-07-30] MEDS ORDERED: oxyCODONE /ACETAMINOPHEN 5-325MG TAB PO PRN (22:50)
[2021-07-30] MEDS ORDERED: ACETAMINOPHEN 325 MG TAB PO PRN (22:50)
[2021-07-31] MEDS: HEPARIN 5,000 UNIT/1 ML VIAL SUB-Q SCH ×3 (01:13→23:12)
[2021-07-31] MEDS: HYDROmorphone 1 MG/1 ML INJ IV PRN (01:14)
[2021-07-31] MEDS ORDERED: LORazepam 2 MG/ML VIAL IV ONE (02:36)
--- NOTE | 2021-07-31 06:33 | History and Physical Report ---
History of Present Illness Date of examination: 07/30/21 Date of admission: 07/30/21 18:17 Chief complaint: Decreased responsiveness since a.m. 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 Patient was scheduled for hemodialysis today and then the patient did not show up-dialysis center contacted family. Family went to check on her patient and informed her that the previous responsiveness on the floor in the bathroom. Last well-known time was the evening before which is 28 Feb 2031. Patient was found hypotensive by the EMS and was given IV bolus of fluids with blood pressure came to normal. Patient response to sternal rub. But does not wake up, briefly and answer questions. No fever or chills. ED course--patient continued to be unresponsive Medications were reconciled. Most of the medications are kept on hold because of the patient's unresponsiveness. We will discontinue oral hypoglycemics because of the propensity for hypoglycemia - Past Medical History --Hypertension: Yes (X 6 YRS) --Diabetes: Yes --GERD: Yes --Renal Disease: Yes (Acute) --Arthritis: Yes (SPINAL,FEET & KNEES) - Surgical History --Cholecystectomy: Yes --Additional Surgical History: left knee. fistual to LUE - Family History --Family history: no significant - Social History --Smoking Status: Unknown if ever smoked - Medications Home Medications: Home Medications Medication Instructions Recorded Confirmed Last Taken Type Aspirin 81 mg PO QDAY tablet 07/27/16 07/30/21 12/27/20 Rx AtorvaSTATin [Lipitor] 80 mg PO QHS 10/26/20 07/30/21 12/27/20 History Bumetanide [Bumetanide 2 mg tab] 2 mg PO DAILY 10/26/20 07/30/21 12/27/20 History Cholecalciferol (Vitamin D3) 50,000 unit PO QWEEK 10/26/20 07/30/21 12/27/20 History [Vitamin D3 50,000UNIT CAP] hydrALAZINE [Apresoline TAB] 50 mg PO BID 10/26/20 07/30/21 12/27/20 History lisinopriL [Zestril TAB] 40 mg PO QDAY 10/26/20 07/30/2112/27/21 History metOLazone [Zaroxolyn] 5 mg PO QDAY 10/26/20 07/30/21 12/27/20 History Gabapentin [Neurontin] 800 mg PO BID 12/22/20 07/30/21 12/27/20 History Glimepiride [Amaryl] 4 mg PO BID 12/22/20 07/30/21 12/27/20 History Metoprolol Xl [Metoprolol 12.5 mg PO BID 12/22/20 07/30/21 12/28/20 07:00 History SUCCINATE ER TAB] Review of Systems ROS: Stated complaint: LOW BLOOD PRESSURE/AMS Other details as noted in HPI Comment: Unobtainable due to pts medical conditions Medications and Allergies Allergies Allergy/AdvReac Type Severity Reaction Status Date / Time Penicillins Allergy Rash Verified 07/30/21 13:52 tetracycline Allergy Rash Verified 07/30/21 13:52 Home Medications Medication Instructions Recorded Confirmed Last Taken Type Aspirin 81 mg PO QDAY tablet 07/27/16 07/30/21 12/27/20 Rx AtorvaSTATin [Lipitor] 80 mg PO QHS 10/26/20 07/30/21 12/27/20 History Bumetanide [Bumetanide 2 mg tab] 2 mg PO DAILY 10/26/20 07/30/21 12/27/20 History Cholecalciferol (Vitamin D3) 50,000 unit PO QWEEK 10/26/20 07/30/21 12/27/20 History [Vitamin D3 50,000UNIT CAP] hydrALAZINE [Apresoline TAB] 50 mg PO BID 10/26/20 07/30/21 12/27/20 History lisinopriL [Zestril TAB] 40 mg PO QDAY 10/26/20 07/30/21 12/27/20 History metOLazone [Zaroxolyn] 5 mg PO QDAY 10/26/20 07/30/21 12/27/20 History Gabapentin [Neurontin] 800 mg PO BID 12/22/20 07/30/21 12/27/20 History Glimepiride [Amaryl] 4 mg PO BID 12/22/20 07/30/21 12/27/20 History Metoprolol Xl [Metoprolol 12.5 mg PO BID 12/22/20 07/30/21 12/28/20 07:00 History SUCCINATE ER TAB] Active Meds: Active Medications Acetaminophen (Acetaminophen 325 Mg Tab) 650 mg PO Q4H PRN PRN Reason: Pain MILD(1-3)/Fever >100.5/ROCHA Famotidine (Famotidine 10 Mg Tab) 10 mg PO BID [facility] Heparin Sodium (Porcine) (Heparin 5,000 Unit/1 Ml Vial) 5,000 unit SUB-Q Q12HR [facility] Last Admin: 07/31/21 01:13 Dose: 5,000 unit Documented by: Hydromorphone HCl (Hydromorphone 1 Mg/1 Ml Inj) 0.5 mg IV Q3H PRN PRN Reason: Pain , Severe (7-10) Last Admin: 07/31/21 01:14 Dose: 0.5 mg Documented by: Ondansetron HCl (Ondansetron 4 Mg/2 Ml Inj) 4 mg IV Q8H PRN PRN Reason: Nausea And Vomiting Oxycodone/Acetaminophen (Oxycodone /Acetaminophen 5-325mg Tab) 1 tab PO Q6H PRN PRN Reason: Pain, Moderate (4-6) Sodium Chloride (Sodium Chloride 0.9% 10 Ml Flush Syringe) 10 ml IV BID [facility] Sodium Chloride (Sodium Chloride 0.9% 10 Ml Flush Syringe) 10 ml IV PRN PRN PRN Reason: LINE FLUSH Exam - Constitutional Vitals: Temp Pulse Resp BP Pulse Ox 97.9 F 63 19 172/54 100 07/30/21 14:13 07/30/21 18:30 07/30/21 19:00 07/30/21 19:00 07/30/21 19:00 General appearance: Present: no acute distress, well-nourished - EENT Eyes: Present: PERRL ENT: hearing intact, clear oral mucosa - Neck Neck: Present: supple, normal ROM - Respiratory Respiratory effort: normal Respiratory: bilateral: CTA - Cardiovascular Heart rate: 78 Rhythm: regular Heart Sounds: Present: S1 & S2. Absent: rub, click - Extremities Extremities: no ischemia, pulses intact, pulses symmetrical, No edema Peripheral Pulses: within normal limits - Abdominal General gastrointestinal: Present: soft, non-tender, non-distended, normal bowel sounds Female genitourinary: Present: normal - Integumentary Integumentary: Present: clear, warm, dry - Musculoskeletal Musculoskeletal: other (Strength could not be tested because of the patient's decreased responsiveness) - Psychiatric Psychiatric: other (Unresponsive) - Neurologic Neurologic: other (Unresponsive) - Allied Health Allied health notes reviewed: nursing, case management HEART Score - HEART Score History: Moderately suspicious Age: > 65 Risk factors: > 3 risk factors or hx of atherosclerotic disease Troponin: Troponin T 0.123 ng/mL (0.00-0.029) H* 07/30/21 14:42 Troponin: 1-3x normal limit - Critical Actions Critical Actions: 4-6 pts:12-16.6% risk of adverse cardiac event. Should be admitted Results - Labs CBC & Chem 7: 07/30/21 14:42 07/30/21 14:42 Labs: Laboratory Last Values WBC 12.2 K/mm3 (4.5-11.0) H 07/30/21 14:42 RBC 3.50 M/mm3 (3.65-5.03) L 07/30/21 14:42 Hgb 11.6 gm/dl (10.1-14.3) 07/30/21 14:42 Hct 34.7 % (30.3-42.9) 07/30/21 14:42 MCV 99 fl (79-97) H 07/30/21 14:42 MCH 33 pg (28-32) H 07/30/21 14:42 MCHC 34 % (30-34) 07/30/21 14:42 RDW 15.9 % (13.2-15.2) H 07/30/21 14:42 Plt Count 154 K/mm3 (140-440) 07/30/21 14:42 Lymph % (Auto) 11.1 % (13.4-35.0) L 07/30/21 14:42 [place] % (Auto) 7.2 % (0.0-7.3) 07/30/21 14:42 Eos % (Auto) 0.1 % (0.0-4.3) 07/30/21 14:42 Baso % (Auto) 0.7 % (0.0-1.8) 07/30/21 14:42 Lymph # (Auto) 1.4 K/mm3 (1.2-5.4) 07/30/21 14:42 [place] # (Auto) 0.9 K/mm3 (0.0-0.8) H 07/30/21 14:42 Eos # (Auto) 0.0 K/mm3 (0.0-0.4) 07/30/21 14:42 Baso # (Auto) 0.1 K/mm3 (0.0-0.1) 07/30/21 14:42 Seg Neutrophils % 80.9 % (40.0-70.0) H 07/30/21 14:42 Seg Neutrophils # 9.9 K/mm3 (1.8-7.7) H 07/30/21 14:42 PT 13.2 Sec. (12.2-14.9) 07/30/21 14:42 INR 0.95 (0.87-1.13) 07/30/21 14:42 APTT 23.4 Sec. (24.2-36.6) L 07/30/21 14:42 Sodium 140 mmol/L (137-145) 07/30/21 14:42 Potassium 4.5 mmol/L (3.6-5.0) 07/30/21 14:42 Chloride 100.7 mmol/L (98-107) 07/30/21 14:42 Carbon Dioxide 23 mmol/L (22-30) 07/30/21 14:42 Anion Gap 21 mmol/L 07/30/21 14:42 BUN 52 mg/dL (7-17) H 07/30/21 14:42 Creatinine 5.0 mg/dL (0.6-1.2) H 07/30/21 14:42 Estimated GFR 9 ml/min 07/30/21 14:42 BUN/Creatinine Ratio 10 % 07/30/21 14:42 Glucose 236 mg/dL (65-100) H 07/30/21 14:42 Lactic Acid 1.30 mmol/L (0.7-2.0) 07/30/21 14:42 Calcium 9.0 mg/dL (8.4-10.2) 07/30/21 14:42 Magnesium 2.70 mg/dL (1.7-2.3) H 07/30/21 14:42 Total Bilirubin 0.90 mg/dL (0.1-1.2) 07/30/21 14:42 AST 30 units/L (5-40) 07/30/21 14:42 ALT 29 units/L (7-56) 07/30/21 14:42 Alkaline Phosphatase 67 units/L (35-129) 07/30/21 14:42 Ammonia 21.0 umol/L (25-60) L 07/30/21 14:42 Total Creatine Kinase 503 units/L (30-135) H 07/30/21 14:42 CK-MB (CK-2) 5.2 ng/mL (0.0-4.0) H 07/30/21 14:42 CK-MB (CK-2) Rel Index 1.0 (0-4) 07/30/21 14:42 Troponin T 0.123 ng/mL (0.00-0.029) H* 07/30/21 14:42 Total Protein 7.1 g/dL (6.3-8.2) 07/30/21 14:42 Albumin 4.1 g/dL (3.9-5) 07/30/21 14:42 Albumin/Globulin Ratio 1.4 % 07/30/21 14:42 Triglycerides 93 mg/dL (2-149) 07/30/21 14:42 Cholesterol 131 mg/dL (50-199) 07/30/21 14:42 LDL Cholesterol Direct 70 mg/dL (50-130) 07/30/21 14:42 HDL Cholesterol 47 mg/dL (40-59) 07/30/21 14:42 Cholesterol/HDL Ratio 2.78 % 07/30/21 14:42 TSH 0.056 mlU/mL (0.270-4.200) L 07/30/21 14:42 Free T4 1.18 ng/dL (0.76-1.46) 07/30/21 14:42 Urine Color Yellow (Yellow) 07/30/21 Unknown Urine Turbidity Clear (Clear) 07/30/21 Unknown Urine pH 6.0 (5.0-7.0) 07/30/21 Unknown Ur Specific [place] 1.011 (1.003-1.030) 07/30/21 Unknown Urine Protein >500 mg/dL (Negative) 07/30/21 Unknown Urine Glucose (UA) >=500 mg/dL (Negative) 07/30/21 Unknown Urine Ketones Neg mg/dL (Negative) 07/30/21 Unknown Urine Blood Sm (Negative) 07/30/21 Unknown Urine Nitrite Neg (Negative) 07/30/21 Unknown Ur Reducing Substances Not Reportable 07/30/21 Unknown Urine Bilirubin Neg (Negative) 07/30/21 Unknown Urine Ictotest Not Reportable 07/30/21 Unknown Urine Urobilinogen < 2.0 mg/dL (<2.0) 07/30/21 Unknown Ur Leukocyte Esterase Neg (Negative) 07/30/21 Unknown Urine WBC (Auto) < 1.0 /HPF (0.0-6.0) 07/30/21 Unknown Urine RBC (Auto) 1.0 /HPF (0.0-6.0) 07/30/21 Unknown U Epithel Cells (Auto) 1.0 /HPF (0-13.0) 07/30/21 Unknown Salicylates < 0.3 mg/dL (2.8-20.0) L 07/30/21 14:42 Urine Opiates Screen Negative 07/30/21 Unknown Urine Methadone Screen Negative 07/30/21 Unknown Acetaminophen 5.0 ug/mL (10.0-30.0) L 07/30/21 14:42 Ur Barbiturates Screen Negative 07/30/21 Unknown Ur Phencyclidine Scrn Negative 07/30/21 Unknown Ur Amphetamines Screen Negative 07/30/21 Unknown U Benzodiazepines Scrn Negative 07/30/21 Unknown Urine Cocaine Screen Negative 07/30/21 Unknown U Marijuana (THC) Screen Negative 07/30/21 Unknown Drugs of Abuse Note Disclamer 07/30/21 Unknown Plasma/Serum Alcohol < 0.01 % (0-0.07) 07/30/21 14:42 Short CBC 07/30/21 Range/Units 14:42 WBC 12.2 H (4.5-11.0) K/mm3 Hgb 11.6 (10.1-14.3) gm/dl Hct 34.7 (30.3-42.9) % Plt Count 154 (140-440) K/mm3 BMP 07/30/21 14:42 Sodium 140 Potassium 4.5 Chloride 100.7 Carbon Dioxide 23 BUN 52 H Creatinine 5.0 H Glucose 236 H Calcium 9.0 Cardiac Enzymes 07/30/21 Range/Units 14:42 Total Creatine Kinase 503 H (30-135) units/L CK-MB (CK-2) 5.2 H (0.0-4.0) ng/mL Troponin T 0.123 H* (0.00-0.029) ng/mL Liver Function 07/30/21 Range/Units 14:42 Total Bilirubin 0.90 (0.1-1.2) mg/dL AST 30 (5-40) units/L ALT 29 (7-56) units/L Alkaline Phosphatase 67 (35-129) units/L Albumin 4.1 (3.9-5) g/dL Urine 07/30/21 Range/Units Unknown Urine Color Yellow (Yellow) Urine pH 6.0 (5.0-7.0) Ur Specific [place] 1.011 (1.003-1.030) Urine Protein >500 (Negative) mg/dL Urine Glucose (UA) >=500 (Negative) mg/dL Microbiology: Microbiology 07/30/21 14:42 Peripheral/Venous Blood Culture - Preliminary Culture in Progress 07/30/21 14:42 Peripheral/Venous Blood Culture - Preliminary Culture in Progress - Imaging and Cardiology EKG: report reviewed (Sinus rhythm no acute ST-T wave changes) Chest x-ray: report reviewed Imaging and Cardiology: Head CT No acute intracranial abnormality Chest x-ray Borderline interstitial pulmonary edema Assessment and Plan Advance Directives: Yes (Full code) VTE prophylaxis?: Chemical Plan of care discussed with patient/family: Yes - Patient Problems (1) Acute metabolic encephalopathy Current Visit: Yes Status: Acute Plan to address problem: Differential diagnosis of hypoglycemia secondary to oral hypoglycemics and possible sepsis. In the emergency room patient blood glucose is 236. Suspect hypoglycemia initially which may have caused unresponsiveness. Patient is on 4 mg of Amaryl twice a day. In a renal failure patient Sepsis may be other causative factor Broad-spectrum IV antibiotics. Ordered MRI brain to rule out any pontine stroke or any posterior stroke causing unresponsiveness Neurology consult requested (2) Sepsis Current Visit: Yes Status: Acute Plan to address problem: Sepsis is possible but unlikely Patient initiated on IV cefepime and vancomycin ID consult requested (3) Hypertension Current Visit: No Status: Chronic Qualifiers: Hypertension type: primary hypertension Qualified Code(s): I10 - Essential (primary) hypertension Plan to address problem: Continue antihypertensives in the form of [place] patch (4) ESRD (end stage renal disease) on dialysis Current Visit: Yes Status: Chronic Plan to address problem: Continue hemodialysis as per schedule (5) T2DM (type 2 diabetes mellitus) Current Visit: Yes Status: Chronic Qualifiers: Diabetes mellitus halfway insulin use: without halfway use Plan to address problem: We will because of the propensity to cause hypoglycemia in the setting of end- stage renal disease Patient is not hypoglycemic at this point but may have been hypoglycemic initially when she was found unresponsive in the bathroom We will change to coverage and later start on 70/30 insulin twice a day Check hemoglobin A1c (6) HLD (hyperlipidemia) Current Visit: Yes Status: Chronic Qualifiers: Hyperlipidemia type: mixed hyperlipidemia Qualified Code(s): E78.2 - Mixed hyperlipidemia Plan to address problem: Hold statins for now (7) Elevated troponin I level Current Visit: Yes Status: Chronic Plan to address problem: In favor of troponin leak with is a CK-MB ratio is normal (8) Decreased thyroid stimulating hormone (TSH) level Current Visit: Yes Status: Chronic Plan to address problem: Possible sick Euthyroid syndrome because the T4 is normal (9) DVT prophylaxis Current Visit: Yes Status: Acute Plan to address problem: On heparin and GI prophylaxis
[2021-07-31] MEDS ORDERED: VANCOMYCIN PHARMACY TO DOSE IV SCH (07:00)
[2021-07-31] MEDS ORDERED: CEFEPIME/NS 1 GM/100 ML 1 GM/100 ML BAG IV SCH (07:00)
[2021-07-31] MEDS ORDERED: cloNIDine TTS 0.2 MG/24 HR PATCH TD SCH (08:00)
[2021-07-31] MEDS ORDERED: VANCOMYCIN 2,000 MG in SODIUM CHLORIDE 0.9% 500 ML 500 ML IV ONE (08:00)
[2021-07-31 08:07] LABS: Basophils # (Auto) 0.1 K/mm3 (0.0-0.1); Basophils % (Auto) 0.8 % (0.0-1.8); Eosinophils # (Auto) 0.4 K/mm3 (0.0-0.4); Eosinophils % (Auto) 4.1 % (0.0-4.3); Hematocrit 35.4 % (30.3-42.9); Hemoglobin 12.1 gm/dl (10.1-14.3); Lymphocytes # (Auto) 2.7 K/mm3 (1.2-5.4); Lymphocytes % (Auto) 29.3 % (13.4-35.0); Mean Corpuscular HGB Conc 34 % (30-34); Mean Corpuscular Volume 98 fl (79-97); Monocytes # (Auto) 0.8 K/mm3 (0.0-0.8); Monocytes % (Auto) 9.1 % (0.0-7.3); Platelet Count 162 K/mm3 (140-440); Red Blood Count 3.61 M/mm3 (3.65-5.03); Red Cell Distribution Width 15.2 % (13.2-15.2)
[2021-07-31 08:22] LABS: Albumin 3.5 g/dL (3.9-5)
--- NOTE | 2021-07-31 08:53 | Consultation ---
History of Present Illness Consult date: 07/31/21 Reason for Consult: LOC,ESRD on dialysis,? Hypoglycemia History of present illness: Decreased responsiveness since a.m. 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 Patient was scheduled for hemodialysis today and then the patient did not show up-dialysis center contacted family. Family went to check on her patient and informed her that the previous responsiveness on the floor in the bathroom. Last well-known time was the evening before Patient was found hypotensive by the EMS and was given IV bolus of fluids with blood pressure came to normal. Patient response to sternal rub. But does not wake up, briefly and answer questions. No fever or chills. ED course--patient continued to be unresponsive Medications were reconciled. Most of the medications are kept on hold because of the patient's unresponsiveness. We will discontinue oral hypoglycemics because of the propensity for hypoglycemia today she is lethergic respond to verbal slightly she knows her name and bithdate , she is with slurred speech CT brain is unremarkable -MRI is pending Cxry showed possible bilateral edema - Past Medical History --Hypertension: Yes (X 6 YRS) --Diabetes: Yes --GERD: Yes --Renal Disease: Yes (Acute) --Arthritis: Yes (SPINAL,FEET & KNEES) - Surgical History --Cholecystectomy: Yes --Additional Surgical History: left knee. fistual to LUE - Family History --Family history: no significant - Social History --Smoking Status: Unknown if ever smoked - Medications Home Medications: Home Medications Medication Instructions Recorded Confirmed Last Taken Type Aspirin 81 mg PO QDAY tablet 07/27/16 07/30/21 12/27/20 Rx AtorvaSTATin [Lipitor] 80 mg PO QHS 10/26/20 07/30/21 12/27/20 History Bumetanide [Bumetanide 2 mg tab] 2 mg PO DAILY 10/26/20 07/30/21 12/27/20 History Cholecalciferol (Vitamin D3) 50,000 unit PO QWEEK 10/26/20 07/30/21 12/27/20 History [Vitamin D3 50,000UNIT CAP] hydrALAZINE [Apresoline TAB] 50 mg PO BID 0107/30/21 12/27/20 History lisinopriL [Zestril TAB] 40 mg PO QDAY 10/26/20 07/30/21 12/27/20 History metOLazone [Zaroxolyn] 5 mg PO QDAY 10/26/20 07/30/21 12/27/20 History Gabapentin [Neurontin] 800 mg PO BID 12/22/20 07/30/21 12/27/20 History Glimepiride [Amaryl] 4 mg PO BID 12/22/20 07/30/21 12/27/20 History Metoprolol Xl [Metoprolol 12.5 mg PO BID 12/22/20 07/30/21 12/28/20 07:00 History SUCCINATE ER TAB] Review of Systems ROS: Stated complaint: LOW BLOOD PRESSURE/AMS Other details as noted in HPI Comment: Unobtainable due to pts medical conditions Medications and Allergies Allergies Allergy/AdvReac Type Severity Reaction Status Date / Time Penicillins Allergy Rash Verified 07/30/21 13:52 tetracycline Allergy Rash Verified 07/30/21 13:52 Home Medications Medication Instructions Recorded Confirmed Last Taken Type Aspirin 81 mg PO QDAY tablet 07/27/16 07/30/21 12/27/20 Rx AtorvaSTATin [Lipitor] 80 mg PO QHS 10/26/20 07/30/21 12/27/20 History Bumetanide [Bumetanide 2 mg tab] 2 mg PO DAILY 10/26/20 07/30/21 12/27/20 History Cholecalciferol (Vitamin D3) 50,000 unit PO QWEEK 10/26/20 07/30/21 12/27/20 History [Vitamin D3 50,000UNIT CAP] hydrALAZINE [Apresoline TAB] 50 mg PO BID 10/26/20 07/30/21 12/27/20 History lisinopriL [Zestril TAB] 40 mg PO QDAY 10/26/20 07/30/21 12/27/20 History metOLazone [Zaroxolyn] 5 mg PO QDAY 10/26/20 07/30/21 12/27/20 History Gabapentin [Neurontin] 800 mg PO BID 12/22/20 07/30/21 12/27/20 History Glimepiride [Amaryl] 4 mg PO BID 12/22/20 07/30/21 12/27/20 History Metoprolol Xl [Metoprolol 12.5 mg PO BID 12/22/20 07/30/21 12/28/20 07:00 History SUCCINATE ER TAB] Active Meds: Active Medications Acetaminophen (Acetaminophen 325 Mg Tab) 650 mg PO Q4H PRN PRN Reason: Pain MILD(1-3)/Fever >100.5/ROCHA Famotidine (Famotidine 10 Mg Tab) 10 mg PO BID [facility] Heparin Sodium (Porcine) (Heparin 5,000 Unit/1 Ml Vial) 5,000 unit SUB-Q Q12HR [facility] Last Admin: 07/31/21 01:13 Dose: 5,000 unit Documented by: Hydromorphone HCl (Hydromorphone 1 Mg/1 Ml Inj) 0.5 mg IV Q3H PRN PRN Reason: Pain , Severe (7-10) Last Admin: 07/31/21 01:14 Dose: 0.5 mg Documented by: Ondansetron HCl (Ondansetron 4 Mg/2 Ml Inj) 4 mg IV Q8H PRN PRN Reason: Nausea And Vomiting Oxycodone/Acetaminophen (Oxycodone /Acetaminophen 5-325mg Tab) 1 tab PO Q6H PRN PRN Reason: Pain, Moderate (4-6) Sodium Chloride (Sodium Chloride 0.9% 10 Ml Flush Syringe) 10 ml IV BID [facility] Sodium Chloride (Sodium Chloride 0.9% 10 Ml Flush Syringe) 10 ml IV PRN PRN PRN Reason: LINE FLUSH Medications and Allergies Allergies Allergy/AdvReac Type Severity Reaction Status Date / Time Penicillins Allergy Rash Verified 07/30/21 13:52 tetracycline Allergy Rash Verified 07/30/21 13:52 Home Medications Medication Instructions Recorded Confirmed Last Taken Type Aspirin 81 mg PO QDAY tablet 07/27/16 07/30/21 12/27/20 Rx AtorvaSTATin [Lipitor] 80 mg PO QHS 10/26/20 07/30/21 12/27/20 History Bumetanide [Bumetanide 2 mg tab] 2 mg PO DAILY 10/26/20 07/30/21 12/27/20 History Cholecalciferol (Vitamin D3) 50,000 unit PO QWEEK 10/26/20 07/30/21 12/27/20 History [Vitamin D3 50,000UNIT CAP] hydrALAZINE [Apresoline TAB] 50 mg PO BID 10/26/20 07/30/21 12/27/20 History lisinopriL [Zestril TAB] 40 mg PO QDAY 10/26/20 07/30/21 12/27/20 History metOLazone [Zaroxolyn] 5 mg PO QDAY 10/26/20 07/30/21 12/27/20 History Gabapentin [Neurontin] 800 mg PO BID 12/22/20 07/30/21 12/27/20 History Glimepiride [Amaryl] 4 mg PO BID 12/22/20 07/30/21 12/27/20 History Metoprolol Xl [Metoprolol 12.5 mg PO BID 12/22/20 07/30/21 12/28/20 07:00 History SUCCINATE ER TAB] Active Meds: Active Medications Acetaminophen (Acetaminophen 325 Mg Tab) 650 mg PO Q4H PRN PRN Reason: Pain MILD(1-3)/Fever >100.5/ROCHA Clonidine HCl (Clonidine Tts 0.2 Mg/24 Hr Patch) 0.2 mg TD Wolf [facility] Famotidine (Famotidine 10 Mg Tab) 10 mg PO BID [facility] Heparin Sodium (Porcine) (Heparin 5,000 Unit/1 Ml Vial) 5,000 unit SUB-Q Q12HR [facility] Last Admin: 07/31/21 01:13 Dose: 5,000 unit Documented by: Hydromorphone HCl (Hydromorphone 1 Mg/1 Ml Inj) 0.5 mg IV Q3H PRN PRN Reason: Pain , Severe (7-10) Last Admin: 07/31/21 01:14 Dose: 0.5 mg Documented by: Cefepime HCl (Cefepime/Ns 1 Gm/100 Ml) 1 gm in 100 mls @ 200 mls/hr IV Q24H [facility]A Vancomycin HCl 2,000 mg/ (Sodium Chloride) 540 mls @ 360 mls/hr IV ONCE ONE Stop: 07/31/21 09:29 Insulin Human Lispro (Insulin Lispro 100 Unit/Ml) 0 unit SUB-Q Q6HR [facility]A; Protocol Ondansetron HCl (Ondansetron 4 Mg/2 Ml Inj) 4 mg IV Q8H PRN PRN Reason: Nausea And Vomiting Oxycodone/Acetaminophen (Oxycodone /Acetaminophen 5-325mg Tab) 1 tab PO Q6H PRN PRN Reason: Pain, Moderate (4-6) Sodium Chloride (Sodium Chloride 0.9% 10 Ml Flush Syringe) 10 ml IV BID AR[facility]A Sodium Chloride (Sodium Chloride 0.9% 10 Ml Flush Syringe) 10 ml IV PRN PRN PRN Reason: LINE FLUSH Physical Examination - Vital Signs Vital Signs: Vital Signs Pulse Ox 96 07/30/21 13:51 - Constitutional General appearance: uncomfortable, other (lethargic slightly open eyes , oriented to self and birthdate) - EENT EENT: Present: PERRL, mucous membranes moist - Respiratory Respiratory: Present: chest non-tender, lungs clear, rhonchi - Cardiovascular Cardiovascular: Present: regular rate, normal S1, normal S2 Extremities: Present: no peripheral edema bilatateraly, no clubbing, cyanosis - Gastrointestinal Gastrointestinal: Present: normoactive bowel sounds - Integumentary Integumentary: Present: normal - Neurologic Cranial nerve examination: PERRL, EOMI, other (slight left facial droop ) Speech examination: other (slurred speech ) Detailed motor examination: grossly full strength in, other (she is with myoclonus / Asterexsis noted both upper , reflexes suppressed, she is moving all limbs to stimulation ) Results - Laboratory Findings CBC and BMP: 07/31/21 07:54 07/31/21 07:54 Abnormal Lab Findings: Abnormal Labs 07/30/21 07/30/21 07/30/21 14:42 14:42 14:42 WBC 12.2 H RBC 3.50 L MCV 99 H MCH 33 H RDW 15.9 H Lymph % (Auto) 11.1 L Carson % (Auto) Carson # (Auto) 0.9 H Seg Neutrophils % 80.9 H Seg Neutrophils # 9.9 H APTT 23.4 L BUN 52 H Creatinine 5.0 H Glucose 236 H Magnesium 2.70 H Ammonia Total Creatine Kinase 503 H CK-MB (CK-2) 5.2 H Troponin T 0.123 H* Albumin TSH Salicylates Acetaminophen 07/30/21 07/30/21 07/30/21 14:42 14:42 14:42 WBC RBC MCV MCH RDW Lymph % (Auto) Carson % (Auto) Carson # (Auto) Seg Neutrophils % Seg Neutrophils # APTT BUN Creatinine Glucose Magnesium Ammonia 21.0 L Total Creatine Kinase CK-MB (CK-2) Troponin T Albumin TSH 0.056 L Salicylates < 0.3 L Acetaminophen 07/30/21 07/31/21 07/31/21 14:42 07:54 07:54 WBC RBC 3.61 L MCV 98 H MCH 33 H RDW Lymph % (Auto) Carson % (Auto) 9.1 H Carson # (Auto) Seg Neutrophils % Seg Neutrophils # APTT BUN 55 H Creatinine 5.1 H Glucose 143 H Magnesium Ammonia Total Creatine Kinase CK-MB (CK-2) Troponin T Albumin 3.5 L TSH Salicylates Acetaminophen 5.0 L Assessment and Plan Assessment and Plan Advance Directives: Yes (Full code) VTE prophylaxis?: Chemical Plan of care discussed with patient/family: Yes - Patient Problems (1) Acute metabolic encephalopathy -Differential diagnosis of hypoglycemia secondary to oral hypoglycemics - possible sepsis. -ESRD on dialysis with noted asterexsis on exam today -In the emergency room patient blood glucose is 236. -Broad-spectrum IV antibiotics. Ordered -MRI brain is pending -Echo -ASA 81 mg po or 300 mg rectal daily # Sepsis -Patient initiated on IV cefepime and vancomycin ID consult requested # Hypertension -Continue antihypertensives in the form of Catapres patch # ESRD (end stage renal disease) on dialysis -Continue hemodialysis as per schedule -. -? Asterexsis # T2DM (type 2 diabetes mellitus) -Patient is not hypoglycemic at this point but may have been hypoglycemic initially when she was found unresponsive in the bathroom -We will change to coverage and later start on 70/30 insulin twice a day -Check hemoglobin A1c # HLD (hyperlipidemia) -statins -LDL#70 # Elevated troponin I level Current Visit: Yes Status: Chronic Plan to address problem: In favor of troponin leak with is a CK-MB ratio is normal # Decreased thyroid stimulating hormone (TSH) level -Possible sick Euthyroid syndrome because the T4 is normal -TSH#0.056 # DVT prophylaxis -On heparin and GI prophylaxis PLAN 1- treat underlying infection 2- check for electrolytes imbalance--hemodialysis 3- cardiac evalute as needed 4- Brain MRI 5- ASA 81 mg po or 300 mg rectal 6- Thyroid adjust med . will follow as needed
[2021-07-31] MEDS ORDERED: FAMOTIDINE 20 MG TAB PO SCH (10:00)
[2021-07-31] MEDS: FAMOTIDINE 10 MG TAB PO SCH ×2 (10:30→23:12)
--- NOTE | 2021-07-31 11:50 | Consultation ---
History of Present Illness - Reason for Consult Consult date: 07/31/21 Possible sepsis Requesting physician: RUDY HUSTON - History of Present Illness The patient is a 66-year-old female with ESRD on HD, hypertension, diabetes type 2, hyperlipidemia was admitted after she was found to be unresponsive on the bathroom floor. Upon evaluation in the ER, she was found to be hypotensive. Due to concerns for sepsis, was started empirically on IV cefepime and v ancomycin. She has been afebrile, labs revealed borderline WBC at 12.2 on admission, down to 9.1K today. Creatinine 5.1, troponins elevated, 0.193. UA without pyuria. Urinary tox screen: Negative. CT head without acute intracranial abnormality, chest x-ray showed some interstitial edema. Still in ED, drowsy, but can be awakened. Review of Systems: Limited due to AMS Medications and Allergies Allergies Allergy/AdvReac Type Severity Reaction Status Date / Time Penicillins Allergy Rash Verified 07/30/21 13:52 tetracycline Allergy Rash Verified 07/30/21 13:52 Home Medications Medication Instructions Recorded Confirmed Last Taken Type Aspirin 81 mg PO QDAY tablet 07/27/16 07/30/21 12/27/20 Rx AtorvaSTATin [Lipitor] 80 mg PO QHS 10/26/20 07/30/21 12/27/20 History Bumetanide [Bumetanide 2 mg tab] 2 mg PO DAILY 10/26/20 07/30/21 12/27/20 History Cholecalciferol (Vitamin D3) 50,000 unit PO QWEEK 10/26/20 07/30/21 12/27/20 History [Vitamin D3 50,000UNIT CAP] hydrALAZINE [Apresoline TAB] 50 mg PO BID 10/26/20 07/30/21 12/27/20 History lisinopriL [Zestril TAB] 40 mg PO QDAY 10/26/20 07/30/21 12/27/20 History metOLazone [Zaroxolyn] 5 mg PO QDAY 10/26/20 07/30/21 12/27/20 History Gabapentin [Neurontin] 800 mg PO BID 12/22/20 07/30/21 12/27/20 History Glimepiride [Amaryl] 4 mg PO BID 12/22/20 07/30/21 12/27/20 History Metoprolol Xl [Metoprolol 12.5 mg PO BID 12/22/20 07/30/21 12/28/20 07:00 History SUCCINATE ER TAB] Active Meds: Active Medications Acetaminophen (Acetaminophen 325 Mg Tab) 650 mg PO Q4H PRN PRN Reason: Pain MILD(1-3)/Fever >100.5/ROCHA Clonidine HCl (Clonidine Tts 0.2 Mg/24 Hr Patch) 0.2 mg TD Wolf ARABELLA Famotidine (Famotidine 10 Mg Tab) 10 mg PO BID [facility] Heparin Sodium (Porcine) (Heparin 5,000 Unit/1 Ml Vial) 5,000 unit SUB-Q Q12HR AARBELLA Last Admin: 07/31/21 01:13 Dose: 5,000 unit Documented by: Hydromorphone HCl (Hydromorphone 1 Mg/1 Ml Inj) 0.5 mg IV Q3H PRN PRN Reason: Pain , Severe (7-10) Last Admin: 07/31/21 01:14 Dose: 0.5 mg Documented by: Cefepime HCl (Cefepime/Ns 1 Gm/100 Ml) 1 gm in 100 mls @ 200 mls/hr IV Q24H [facility] Insulin Human Lispro (Insulin Lispro 100 Unit/Ml) 0 unit SUB-Q Q6HR [facility]A; Protocol Ondansetron HCl (Ondansetron 4 Mg/2 Ml Inj) 4 mg IV Q8H PRN PRN Reason: Nausea And Vomiting Oxycodone/Acetaminophen (Oxycodone /Acetaminophen 5-325mg Tab) 1 tab PO Q6H PRN PRN Reason: Pain, Moderate (4-6) Sodium Chloride (Sodium Chloride 0.9% 10 Ml Flush Syringe) 10 ml IV BID ARABELLA Sodium Chloride (Sodium Chloride 0.9% 10 Ml Flush Syringe) 10 ml IV PRN PRN PRN Reason: LINE FLUSH Physical Examination - Physical Exam Narrative exam: Physical Exam: Constitutional: Drowsy Head, Ears, Nose: Normocephalic, atraumatic. External ears, nose normal Eyes: Conjunctivae/corneas clear. No icterus. No ptosis. Neck: Supple, no meningeal signs Oral: Deferred Cardiovascular: S1, S2 + Respiratory: Air entry fair bilaterally GI: Soft, non-tender; bowel sounds normal. No peritoneal signs Musculoskeletal: No pedal edema, no cyanosis. Skin: No rash or abscess Hem/Lymphatic: No palpable cervical or supraclavicular nodes. No lymphangitis Psych: No agitation Neurological: Drowsy - Constitutional Vitals: Vital Signs Temp Pulse Resp BP Pulse Ox 97.9 F 66 10 L 150/51 100 07/30/21 14:13 07/31/21 07:01 07/31/21 07:01 07/31/21 07:01 07/31/21 07:01 Temperature -Last 24 Hours Temperature 97.9 F Results - Labs CBC & Chem 7: 07/31/21 07:54 07/31/21 07:54 Labs: Abnormal lab results 07/30/21 07/30/21 07/30/21 Range/Units 14:42 14:42 14:42 WBC 12.2 H (4.5-11.0) K/mm3 RBC 3.50 L (3.65-5.03) M/mm3 MCV 99 H (79-97) fl MCH 33 H (28-32) pg RDW 15.9 H (13.2-15.2) % Lymph % (Auto) 11.1 L (13.4-35.0) % Weston % (Auto) (0.0-7.3) % Weston # (Auto) 0.9 H (0.0-0.8) K/mm3 Seg Neutrophils % 80.9 H (40.0-70.0) % Seg Neutrophils # 9.9 H (1.8-7.7) K/mm3 APTT 23.4 L (24.2-36.6) Sec. BUN 52 H (7-17) mg/dL Creatinine 5.0 H (0.6-1.2) mg/dL Glucose 236 H (65-100) mg/dL Magnesium 2.70 H (1.7-2.3) mg/dL Ammonia (25-60) umol/L Total Creatine Kinase 503 H (30-135) units/L CK-MB (CK-2) 5.2 H (0.0-4.0) ng/mL Troponin T 0.123 H* (0.00-0.029) ng/mL Albumin (3.9-5) g/dL TSH (0.270-4.200) mlU/mL Salicylates (2.8-20.0) mg/dL Acetaminophen (10.0-30.0) ug/mL 07/30/21 07/30/21 07/30/21 Range/Units 14:42 14:42 14:42 WBC (4.5-11.0) K/mm3 RBC (3.65-5.03) M/mm3 MCV (79-97) fl MCH (28-32) pg RDW (13.2-15.2) % Lymph % (Auto) (13.4-35.0) % Weston % (Auto) (0.0-7.3) % Weston # (Auto) (0.0-0.8) K/mm3 Seg Neutrophils % (40.0-70.0) % Seg Neutrophils # (1.8-7.7) K/mm3 APTT (24.2-36.6) Sec. BUN (7-17) mg/dL Creatinine (0.6-1.2) mg/dL Glucose (65-100) mg/dL Magnesium (1.7-2.3) mg/dL Ammonia 21.0 L (25-60) umol/L Total Creatine Kinase (30-135) units/L CK-MB (CK-2) (0.0-4.0) ng/mL Troponin T (0.00-0.029) ng/mL Albumin (3.9-5) g/dL TSH 0.056 L (0.270-4.200) mlU/mL Salicylates < 0.3 L (2.8-20.0) mg/dL Acetaminophen (10.0-30.0) ug/mL 07/30/21 07/31/21 07/31/21 Range/Units 14:42 07:54 07:54 WBC (4.5-11.0) K/mm3 RBC 3.61 L (3.65-5.03) M/mm3 MCV 98 H (79-97) fl MCH 33 H (28-32) pg RDW (13.2-15.2) % Lymph % (Auto) (13.4-35.0) % Weston % (Auto) 9.1 H (0.0-7.3) % Weston # (Auto) (0.0-0.8) K/mm3 Seg Neutrophils % (40.0-70.0) % Seg Neutrophils # (1.8-7.7) K/mm3 APTT (24.2-36.6) Sec. BUN 55 H (7-17) mg/dL Creatinine 5.1 H (0.6-1.2) mg/dL Glucose 143 H (65-100) mg/dL Magnesium (1.7-2.3) mg/dL Ammonia (25-60) umol/L Total Creatine Kinase (30-135) units/L CK-MB (CK-2) (0.0-4.0) ng/mL Troponin T (0.00-0.029) ng/mL Albumin 3.5 L (3.9-5) g/dL TSH (0.270-4.200) mlU/mL Salicylates (2.8-20.0) mg/dL Acetaminophen 5.0 L (10.0-30.0) ug/mL 07/31/21 Range/Units 07:54 WBC (4.5-11.0) K/mm3 RBC (3.65-5.03) M/mm3 MCV (79-97) fl MCH (28-32) pg RDW (13.2-15.2) % Lymph % (Auto) (13.4-35.0) % Weston % (Auto) (0.0-7.3) % Weston # (Auto) (0.0-0.8) K/mm3 Seg Neutrophils % (40.0-70.0) % Seg Neutrophils # (1.8-7.7) K/mm3 APTT (24.2-36.6) Sec. BUN (7-17) mg/dL Creatinine (0.6-1.2) mg/dL Glucose (65-100) mg/dL Magnesium (1.7-2.3) mg/dL Ammonia (25-60) umol/L Total Creatine Kinase (30-135) units/L CK-MB (CK-2) (0.0-4.0) ng/mL Troponin T 0.193 H* D (0.00-0.029) ng/mL Albumin (3.9-5) g/dL TSH (0.270-4.200) mlU/mL Salicylates (2.8-20.0) mg/dL Acetaminophen (10.0-30.0) ug/mL - Imaging and Cardiology Chest x-ray: report reviewed, image reviewed (mild interstitial edema) Assessment and Plan Cultures: 07/30/2021 blood culture: In process A/P: 66-year-old female with ESRD on HD, hypertension, diabetes type 2, hyperlipidemia was admitted after she was found to be unresponsive on the bathroom floor. Upon evaluation in the ER, she was found to be hypotensive: #Hypotension: transient, responded to fluids, no fever. Borderline leucocytosis now resolved. #Acute encephalopathy: Neurology evaluating. Suspected toxic/metabolic. No obvious evidence of infectious process identified at this time. Rule out bacteremia given ESRD on hemodialysis. #ESRD on HD: Renally dose antibiotics. #Diabetes mellitus type 2 #Elevated troponin Recs: -Follow-up blood cultures, if negative at 48 hours, discontinue cefepime and vancomycin Stoney Field MD, FACP [facility] ([facility] O: [phone] F: [phone]
[2021-07-31] MEDS: INSULIN LISPRO 100 UNIT/ML SUB-Q SCH ×3 (13:28→18:57)
[2021-07-31] MEDS: CEFEPIME/NS 1 GM/100 ML 1 GM/100 ML BAG IV SCH (13:48)
--- NOTE | 2021-07-31 15:05 | Consultation ---
History of Present Illness - Reason for Consult Consult date: 07/31/21 end stage renal disease Requesting physician: RUDY HUSTON - History of Present Illness This is a 66 yo F with past medical history of hypertension, type 2 diabetes, hyperlipidemia, ESRD on HD on TTS schedule at [facility], who was brought in by EMS after she was found unresponsive on the bathroom floor. Patient did not show up to the scheduled hemodialysis treatment and family was contacted who called EMS. Patient was found hypotensive by the EMS and was given IV bolus of fluids with blood pressure came to normal. Patient responded to sternal rub. CT head in ER showed no acute intracranial abnormalities, CXR showed borderline interstitial pulmonary edema. Labs showed borderline leukocytosis with WBC > 12.2, elevated trop at 0.193, along with elevated BUN/Cr. UA showed no evidence of UTI, UTox screen was negative. Pt was treated empirically with cefepime and vanco for possible sepsis. Renal consult is requested for management of ESRD/HD. Pt's last HD was on 07/28, as per chart review, pt tolerated HD well, no abormalities were reported. Pt refused COVID19 vaccination in the past. Past History Past Medical History: diabetes, hypertension, hyperlipidemia, renal failure Past Surgical History: Other (AVF) Social history: denies: smoking, alcohol abuse, prescription drug abuse, IV drug use Family history: hypertension Medications and Allergies Allergies Allergy/AdvReac Type Severity Reaction Status Date / Time Penicillins Allergy Rash Verified 07/30/21 13:52 tetracycline Allergy Rash Verified 07/30/21 13:52 Home Medications Medication Instructions Recorded Confirmed Last Taken Type Aspirin 81 mg PO QDAY tablet 07/27/16 07/30/21 12/27/20 Rx AtorvaSTATin [Lipitor] 80 mg PO QHS 10/26/20 07/30/21 12/27/20 History Bumetanide [Bumetanide 2 mg tab] 2 mg PO DAILY 10/26/20 07/30/21 12/27/20 History Cholecalciferol (Vitamin D3) 50,000 unit PO QWEEK 10/26/20 07/30/21 12/27/20 History [Vitamin D3 50,000UNIT CAP] hydrALAZINE [Apresoline TAB] 50 mg PO BID 10/26/20 07/30/21 12/27/20 History lisinopriL [Zestril TAB] 40 mg PO QDAY 10/26/20 07/30/21 12/27/20 History metOLazone [Zaroxolyn] 5 mg PO QDAY 10/26/20 07/30/21 12/27/20 History Gabapentin [Neurontin] 800 mg PO BID 12/22/20 07/30/21 12/27/20 History Glimepiride [Amaryl] 4 mg PO BID 12/22/20 07/30/21 12/27/20 History Metoprolol Xl [Metoprolol 12.5 mg PO BID 12/22/20 07/30/21 12/28/20 07:00 Histo ry SUCCINATE ER TAB] Active Meds: Active Medications Acetaminophen (Acetaminophen 325 Mg Tab) 650 mg PO Q4H PRN PRN Reason: Pain MILD(1-3)/Fever >100.5/ROCHA Clonidine HCl (Clonidine Tts 0.2 Mg/24 Hr Patch) 0.2 mg TD Wolf [facility] Last Admin: 07/31/21 14:23 Dose: 0.2 mg Documented by: Famotidine (Famotidine 10 Mg Tab) 10 mg PO BID [facility] Last Admin: 07/31/21 10:30 Dose: Not Given Documented by: Heparin Sodium (Porcine) (Heparin 5,000 Unit/1 Ml Vial) 5,000 unit SUB-Q Q12HR [facility] Last Admin: 07/31/21 13:48 Dose: 5,000 unit Documented by: Hydromorphone HCl (Hydromorphone 1 Mg/1 Ml Inj) 0.5 mg IV Q3H PRN PRN Reason: Pain , Severe (7-10) Last Admin: 07/31/21 01:14 Dose: 0.5 mg Documented by: Cefepime HCl (Cefepime/Ns 1 Gm/100 Ml) 1 gm in 100 mls @ 200 mls/hr IV Q24H [facility] Last Infusion: 07/31/21 14:18 Dose: Infused Documented by: Insulin Human Lispro (Insulin Lispro 100 Unit/Ml) 0 unit SUB-Q Q6HR [facility]; Protocol Last Admin: 07/31/21 14:20 Dose: Not Given Documented by: Ondansetron HCl (Ondansetron 4 Mg/2 Ml Inj) 4 mg IV Q8H PRN PRN Reason: Nausea And Vomiting Oxycodone/Acetaminophen (Oxycodone /Acetaminophen 5-325mg Tab) 1 tab PO Q6H PRN PRN Reason: Pain, Moderate (4-6) Sodium Chloride (Sodium Chloride 0.9% 10 Ml Flush Syringe) 10 ml IV BID [facility] Last Admin: 07/31/21 13:49 Dose: 10 ml Documented by: Sodium Chloride (Sodium Chloride 0.9% 10 Ml Flush Syringe) 10 ml IV PRN PRN PRN Reason: LINE FLUSH Review of Systems ROS unobtainable: due to mental status Exam - Vital Signs Vital signs: Vital Signs Pulse Ox 96 07/30/21 13:51 - General Appearance General appearance: well-developed, well-nourished, appears stated age EENT: ATNC, PERRL, mucous membranes moist Neck: Present: neck supple Respiratory: Clear to Ascultation Heart: regular, S1S2 Gastrointestinal: Present: normoactive bowel sounds Integumentary: no rash Neurologic: no focal deficit, confused, disoriented, CN 3-12 intact Results - Lab Results 07/31/21 07:54 07/31/21 07:54 Most recent lab results Calcium 9.0 mg/dL (8.4-10.2) 07/31/21 07:54 Magnesium 2.70 mg/dL (1.7-2.3) H 07/30/21 14:42 Assessment and Plan - Patient Problems (1) Acute metabolic encephalopathy Current Visit: Yes Status: Acute Plan to address problem: Appreciate neuroloy evaluation. Differential diagnosis include hypotension, hypoglycemia secondary to oral hypoglycemics, to rule out possible sepsis. Echo/MRI brain pending. No severe azotemia or electrolyte imbalance seen to explain her encephalopathy. (2) ESRD (end stage renal disease) on dialysis Current Visit: Yes Status: Chronic Plan to address problem: No urgent indication for renal replacement therapy at present. Will arrange HD on MWF schedule while inpatient. (3) Elevated troponin I level Current Visit: Yes Status: Chronic Plan to address problem: elevated trop most likely 2/2 ESRD, trend serial trop, Echo pending. (4) T2DM (type 2 diabetes mellitus) Current Visit: Yes Status: Chronic Qualifiers: Diabetes mellitus penitentiary insulin use: without penitentiary use Plan to address problem: diabetes management as per primary attending
--- NOTE | 2021-07-31 16:01 | Progress Note ---
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 #Acute metabolic encephalopathy #Possible sepsis -Etiology includes hypoglycemia secondary to oral hypoglycemics versus sepsis -Pending blood cultures. Low clinical suspicion given lack of fever and improved leukocytosis. -Currently on cefepime and vancomycin. Can discontinue on 08/02/2021 if blood cultures are negative. -Neurology on board; appreciate recs. Pending MRI. -ID on board; appreciate recs #Elevated troponin -Troponin 0.123---> 0.193. To continue to trend troponin. -Likely elevated in the setting of ESRD. If troponins continue to increase, cardiology will be consulted in the morning. #ESRD on dialysis -Patient missed most recent dialysis session (07/30/2021) -Nephrology currently on board; appreciate recs -Patient will undergo hemodialysis on 08/01/2021, continuing with MWF schedule #Hypertension -Blood pressure is mildly elevated -We will continue home antihypertensives #Type 2 diabetes mellitus -Holding antihypertensives in the setting of possible hypoglycemia induced encephalopathy -Pending hemoglobin A1c -We will consider starting basal insulin (NPH) twice daily if blood glucose >180. Inpatient blood glucose goal [id number] #Hyperlipidemia -Holding home statins. Will consider restarting once clinically stable #Decreased TSH level #Possible sick euthyroid syndrome -Elevated TSH with normal T4 -Consider endocrinology consult #DVT prophylaxis -Continue subcutaneous heparin 5000 units every 8 hours Disposition Plan: Continue medical management. Total Time Spent with Patient (Minutes): 35 History Interval history: No acute events overnight. Hospitalist Physical - Constitutional Vitals: Temp Pulse Resp BP Pulse Ox 98.4 F 75 10 L 178/61 100 07/31/21 14:29 07/31/21 14:23 07/31/21 07:01 07/31/21 14:23 07/31/21 07:01 General appearance: Present: no acute distress, well-nourished, obese - EENT Eyes: Present: PERRL, EOM intact ENT: hearing intact, dentition normal - Neck Neck: Present: supple, normal ROM - Respiratory Respiratory effort: normal (2L nasal cannula) Respiratory: negative: CTA, diminished, rales, rhonchi, wheezing - Cardiovascular Rhythm: regular Heart Sounds: Present: S1 & S2 - Extremities Extremities: no ischemia, pulses intact, pulses symmetrical, No edema, normal temperature, normal color Peripheral Pulses: within normal limits - Abdominal General gastrointestinal: soft, non-tender, non-distended, normal bowel sounds - Integumentary Integumentary: Present: clear, warm, dry (age related skin changes) - Psychiatric Psychiatric: other (unable to assess given medical condition) - Neurologic Neurologic: other (Alert and oriented x1) - Allied Health Allied health notes reviewed: nursing HEART Score - HEART Score Age: > 65 Risk factors: > 3 risk factors or hx of atherosclerotic disease Troponin: Troponin T 0.193 ng/mL (0.00-0.029) H* D 07/31/21 07:54 Troponin: 1-3x normal limit - Critical Actions Critical Actions: 4-6 pts:12-16.6% risk of adverse cardiac event. Should be a dmitted Results - Labs CBC & Chem 7: 07/31/21 07:54 07/31/21 07:54 Labs: Laboratory Last Values WBC 9.1 K/mm3 (4.5-11.0) 07/31/21 07:54 RBC 3.61 M/mm3 (3.65-5.03) L 07/31/21 07:54 Hgb 12.1 gm/dl (10.1-14.3) 07/31/21 07:54 Hct 35.4 % (30.3-42.9) 07/31/21 07:54 MCV 98 fl (79-97) H 07/31/21 07:54 MCH 33 pg (28-32) H 07/31/21 07:54 MCHC 34 % (30-34) 07/31/21 07:54 RDW 15.2 % (13.2-15.2) 07/31/21 07:54 Plt Count 162 K/mm3 (140-440) 07/31/21 07:54 Lymph % (Auto) 29.3 % (13.4-35.0) 07/31/21 07:54 [place] % (Auto) 9.1 % (0.0-7.3) H 07/31/21 07:54 Eos % (Auto) 4.1 % (0.0-4.3) 07/31/21 07:54 Baso % (Auto) 0.8 % (0.0-1.8) 07/31/21 07:54 Lymph # (Auto) 2.7 K/mm3 (1.2-5.4) 07/31/21 07:54 [place] # (Auto) 0.8 K/mm3 (0.0-0.8) 07/31/21 07:54 Eos # (Auto) 0.4 K/mm3 (0.0-0.4) 07/31/21 07:54 Baso # (Auto) 0.1 K/mm3 (0.0-0.1) 07/31/21 07:54 Seg Neutrophils % 56.7 % (40.0-70.0) 07/31/21 07:54 Seg Neutrophils # 5.1 K/mm3 (1.8-7.7) 07/31/21 07:54 PT 13.2 Sec. (12.2-14.9) 07/30/21 14:42 INR 0.95 (0.87-1.13) 07/30/21 14:42 APTT 23.4 Sec. (24.2-36.6) L 07/30/21 14:42 Sodium 142 mmol/L (137-145) 07/31/21 07:54 Potassium 4.5 mmol/L (3.6-5.0) 07/31/21 07:54 Chloride 103.7 mmol/L (98-107) 07/31/21 07:54 Carbon Dioxide 24 mmol/L (22-30) 07/31/21 07:54 Anion Gap 19 mmol/L 07/31/21 07:54 BUN 55 mg/dL (7-17) H 07/31/21 07:54 Creatinine 5.1 mg/dL (0.6-1.2) H 07/31/21 07:54 Estimated GFR 8 ml/min 07/31/21 07:54 BUN/Creatinine Ratio 11 % 07/31/21 07:54 Glucose 143 mg/dL (65-100) H 07/31/21 07:54 POC Glucose 161 mg/dL (70-105) H 07/31/21 13:53 Lactic Acid 1.30 mmol/L (0.7-2.0) 07/30/21 14:42 Calcium 9.0 mg/dL (8.4-10.2) 07/31/21 07:54 Magnesium 2.70 mg/dL (1.7-2.3) H 07/30/21 14:42 Total Bilirubin 1.00 mg/dL (0.1-1.2) 07/31/21 07:54 AST 30 units/L (5-40) 07/31/21 07:54 ALT 27 units/L (7-56) 07/31/21 07:54 Alkaline Phosphatase 70 units/L (35-129) 07/31/21 07:54 Ammonia 21.0 umol/L (25-60) L 07/30/21 14:42 Total Creatine Kinase 503 units/L (30-135) H 07/30/21 14:42 CK-MB (CK-2) 5.2 ng/mL (0.0-4.0) H 07/30/21 14:42 CK-MB (CK-2) Rel Index 1.0 (0-4) 07/30/21 14:42 Troponin T 0.193 ng/mL (0.00-0.029) H* D 07/31/21 07:54 Total Protein 6.6 g/dL (6.3-8.2) 07/31/21 07:54 Albumin 3.5 g/dL (3.9-5) L 07/31/21 07:54 Albumin/Globulin Ratio 1.1 % 07/31/21 07:54 Triglycerides 93 mg/dL (2-149) 07/30/21 14:42 Cholesterol 131 mg/dL (50-199) 07/30/21 14:42 LDL Cholesterol Direct 70 mg/dL (50-130) 07/30/21 14:42 HDL Cholesterol 47 mg/dL (40-59) 07/30/21 14:42 Cholesterol/HDL Ratio 2.78 % 07/30/21 14:42 TSH 0.056 mlU/mL (0.270-4.200) L 07/30/21 14:42 Free T4 1.18 ng/dL (0.76-1.46) 07/30/21 14:42 Urine Color Yellow (Yellow) 07/30/21 Unknown Urine Turbidity Clear (Clear) 07/30/21 Unknown Urine pH 6.0 (5.0-7.0) 07/30/21 Unknown Ur Specific [place] 1.011 (1.003-1.030) 07/30/21 Unknown Urine Protein >500 mg/dL (Negative) 07/30/21 Unknown Urine Glucose (UA) >=500 mg/dL (Negative) 07/30/21 Unknown Urine Ketones Neg mg/dL (Negative) 07/30/21 Unknown Urine Blood Sm (Negative) 07/30/21 Unknown Urine Nitrite Neg (Negative) 07/30/21 Unknown Ur Reducing Substances Not Reportable 07/30/21 Unknown Urine Bilirubin Neg (Negative) 07/30/21 Unknown Urine Ictotest Not Reportable 07/30/21 Unknown Urine Urobilinogen < 2.0 mg/dL (<2.0) 07/30/21 Unknown Ur Leukocyte Esterase Neg (Negative) 07/30/21 Unknown Urine WBC (Auto) < 1.0 /HPF (0.0-6.0) 07/30/21 Unknown Urine RBC (Auto) 1.0 /HPF (0.0-6.0) 07/30/21 Unknown U Epithel Cells (Auto) 1.0 /HPF (0-13.0) 07/30/21 Unknown Salicylates < 0.3 mg/dL (2.8-20.0) L 07/30/21 14:42 Urine Opiates Screen Negative 07/30/21 Unknown Urine Methadone Screen Negative 07/30/21 Unknown Acetaminophen 5.0 ug/mL (10.0-30.0) L 07/30/21 14:42 Ur Barbiturates Screen Negative 07/30/21 Unknown Ur Phencyclidine Scrn Negative 07/30/21 Unknown Ur Amphetamines Screen Negative 07/30/21 Unknown U Benzodiazepines Scrn Negative 07/30/21 Unknown Urine Cocaine Screen Negative 07/30/21 Unknown U Marijuana (THC) Screen Negative 07/30/21 Unknown Drugs of Abuse Note Disclamer 07/30/21 Unknown Plasma/Serum Alcohol < 0.01 % (0-0.07) 07/30/21 14:42 Microbiology: Microbiology 07/30/21 14:42 Peripheral/Venous Blood Culture - Preliminary Culture in Progress 07/30/21 14:42 Peripheral/Venous Blood Culture - Preliminary Culture in Progress Active Medications - Current Medications Current Medications: Generic Name Dose Route Start Last Admin Trade Name Freq PRN Reason Stop Dose Admin Acetaminophen 650 mg 07/30/21 22:50 Acetaminophen 325 Mg Tab PO Q4H PRN Pain MILD(1-3)/Fever >100.5/ROCHA Clonidine HCl 0.2 mg 07/31/21 08:00 07/31/21 14:23 Clonidine Tts 0.2 Mg/24 Hr Patch TD 0.2 mg Wolf [facility] Administration Famotidine 10 mg 07/31/21 10:00 07/31/21 10:30 Famotidine 10 Mg Tab PO Not Given BID [facility] Heparin Sodium (Porcine) 5,000 unit 07/30/21 23:00 07/31/21 13:48 Heparin 5,000 Unit/1 Ml Vial SUB-Q 5,000 unit Q12HR [facility] Administration Hydromorphone HCl 0.5 mg 07/30/21 22:50 07/31/21 01:14 Hydromorphone 1 Mg/1 Ml Inj IV 0.5 mg Q3H PRN Administration Pain , Severe (7-10) Cefepime HCl 1 gm in 100 mls @ 200 mls/hr 07/31/21 08:00 07/31/21 14:18 Cefepime/Ns 1 Gm/100 Ml IV Infused Q24H [facility] Infusion Insulin Human Lispro 0 unit 07/31/21 07:00 07/31/21 14:20 Insulin Lispro 100 Unit/Ml SUB-Q Not Given Q6HR [facility] Protocol Ondansetron HCl 4 mg 07/30/21 22:50 Ondansetron 4 Mg/2 Ml Inj IV Q8H PRN Nausea And Vomiting Oxycodone/Acetaminophen 1 tab 07/30/21 22:50 Oxycodone /Acetaminophen 5-325mg Tab PO Q6H PRN Pain, Moderate (4-6) Sodium Chloride 10 ml 07/31/21 10:00 07/31/21 13:49 Sodium Chloride 0.9% 10 Ml Flush Syringe IV 10 ml BID [facility] Administration Sodium Chloride 10 ml 07/30/21 22:50 Sodium Chloride 0.9% 10 Ml Flush Syringe IV PRN PRN LINE FLUSH
[2021-07-31] MEDS: hydrALAZINE 20 MG/1 ML INJ IV PRN (23:12)
[2021-08-01] MEDS: HYDROmorphone 1 MG/1 ML INJ IV PRN (05:22)
[2021-08-01 07:21] LABS: Basophils # (Auto) 0.1 K/mm3 (0.0-0.1); Basophils % (Auto) 1.4 % (0.0-1.8); Eosinophils # (Auto) 0.5 K/mm3 (0.0-0.4); Eosinophils % (Auto) 5.7 % (0.0-4.3); Hematocrit 35.2 % (30.3-42.9); Hemoglobin 11.8 gm/dl (10.1-14.3); Lymphocytes # (Auto) 2.4 K/mm3 (1.2-5.4); Lymphocytes % (Auto) 27.7 % (13.4-35.0); Mean Corpuscular HGB Conc 34 % (30-34); Mean Corpuscular Volume 100 fl (79-97); Monocytes # (Auto) 0.8 K/mm3 (0.0-0.8); Monocytes % (Auto) 8.9 % (0.0-7.3); Red Blood Count 3.52 M/mm3 (3.65-5.03); Red Cell Distribution Width 16.1 % (13.2-15.2)
[2021-08-01 07:40] LABS: Calcium 8.9 mg/dL (8.4-10.2)
[2021-08-01] MEDS: CEFEPIME/NS 1 GM/100 ML 1 GM/100 ML BAG IV SCH (07:57)
[2021-08-01] MEDS: INSULIN LISPRO 100 UNIT/ML SUB-Q SCH ×4 (08:01→18:35)
[2021-08-01 09:46] LABS: Platelet Count 213 K/mm3 (140-440)
[2021-08-01] MEDS: FAMOTIDINE 10 MG TAB PO SCH ×2 (10:11→21:53)
[2021-08-01] MEDS: HEPARIN 5,000 UNIT/1 ML VIAL SUB-Q SCH ×2 (10:11→21:52)
--- NOTE | 2021-08-01 11:02 | Electrocardiograph Report ---
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
[2021-08-01] MEDS ORDERED: SODIUM CHLORIDE 0.9% 100 ML IV PRN ×2 (11:30→16:17)
[2021-08-01] MEDS ORDERED: EPOETIN ALFA-EPBX 10,000 UNIT/1 ML VIAL IV PRN (11:30)
--- NOTE | 2021-08-01 12:06 | Progress Note ---
Assessment and Plan Cultures: 07/30/2021 blood culture: In process A/P: 66-year-old female with ESRD on HD, hypertension, diabetes type 2, hyperlipidemia was admitted after she was found to be unresponsive on the bath room floor. Upon evaluation in the ER, she was found to be hypotensive: #Hypotension: transient, responded to fluids, no fever. Borderline leucocytosis now resolved. #Acute encephalopathy: Neurology evaluating. Suspected toxic/metabolic. No obvious evidence of infectious process identified at this time. Rule out bacteremia given ESRD on hemodialysis. #ESRD on HD: Renally dose antibiotics. #Diabetes mellitus type 2 #Elevated troponin Recs: -Follow-up blood cultures, if negative at 48 hours, discontinue cefepime and vancomycin Gabbi Castelan MD [facility] O: [phone] F: [phone] Subjective Date of service: 08/01/21 Interval history: Afebrile, normal white count. Objective - Exam Narrative Exam: Physical Exam: Constitutional: Drowsy Head, Ears, Nose: Normocephalic, atraumatic. External ears, nose normal Eyes: Conjunctivae/corneas clear. No icterus. No ptosis. Neck: Supple, no meningeal signs Oral: Deferred Cardiovascular: S1, S2 + Respiratory: Air entry fair bilaterally GI: Soft, non-tender; bowel sounds normal. No peritoneal signs Musculoskeletal: No pedal edema, no cyanosis. Skin: No rash or abscess Hem/Lymphatic: No palpable cervical or supraclavicular nodes. No lymphangitis Psych: No agitation Neurological: Drowsy - Constitutional Vitals: Vital Signs Temp Pulse Resp BP Pulse Ox 97.6 F 79 14 158/54 97 08/01/21 08:14 08/01/21 08:14 08/01/21 08:14 08/01/21 08:14 08/01/21 08:14 Temperature -Last 24 Hours Temperature 97.6 F Temperature 98.4 F - Labs CBC & Chem 7: 08/01/21 06:46 08/01/21 06:46 Labs: Abnormal lab results 07/31/21 07/31/21 07/31/21 Range/Units 13:53 17:52 18:53 RBC (3.65-5.03) M/mm3 MCV (79-97) fl MCH (28-32) pg RDW (13.2-15.2) % [place] % (Auto) (0.0-7.3) % Eos % (Auto) (0.0-4.3) % Eos # (Auto) (0.0-0.4) K/mm3 Chloride (98-107) mmol/L BUN (7-17) mg/dL Creatinine (0.6-1.2) mg/dL Glucose (65-100) mg/dL POC Glucose 161 H 147 H (70-105) mg/dL Phosphorus (2.5-4.5) mg/dL Magnesium (1.7-2.3) mg/dL Troponin T 0.170 H* (0.00-0.029) ng/mL 08/01/21 08/01/21 08/01/21 Range/Units 06:46 06:46 07:55 RBC 3.52 L (3.65-5.03) M/mm3 MCV 100 H (79-97) fl MCH 34 H (28-32) pg RDW 16.1 H (13.2-15.2) % [place] % (Auto) 8.9 H (0.0-7.3) % Eos % (Auto) 5.7 H (0.0-4.3) % Eos # (Auto) 0.5 H (0.0-0.4) K/mm3 Chloride 107.4 H (98-107) mmol/L BUN 59 H (7-17) mg/dL Creatinine 5.3 H (0.6-1.2) mg/dL Glucose 196 H (65-100) mg/dL POC Glucose 183 H (70-105) mg/dL Phosphorus 6.50 H (2.5-4.5) mg/dL Magnesium 2.80 H (1.7-2.3) mg/dL Troponin T (0.00-0.029) ng/mL
[2021-08-01 13:49] LABS: Hepatitis C Virus Antibody Non-Reactive (NonReactive)
[2021-08-01 13:52] LABS: Hepatitis B Surface Antigen Nonreactive (Negative)
--- NOTE | 2021-08-01 14:24 | Consultation ---
History of Present Illness - Reason for Consult end stage renal disease - History of Present Illness Very pleasant 66-year-old female, well-known to our outpatient office, with a history of end-stage renal disease in the setting of diabetes and hypertension, who dialyzes at [facility] on a Sunday//Sunday schedule, with her last hemodialysis session on Sunday, presented to the emergency room department after she was found unresponsive at home. Patient does not remember any other details of the events at this time but she is awake and alert this afternoon when I came in for my examination. No other family members are at bedside right now. Rest of the history was obtained primarily by review of the medical charts. Patient states that her last hemodialysis treatment was uneventful on Sunday without any acute issues. Past History Past Medical History: diabetes, hypertension, hyperlipidemia, renal failure Past Surgical History: Other (AVF) Social history: denies: smoking, alcohol abuse, prescription drug abuse, IV drug use Family history: hypertension Medications and Allergies Allergies Allergy/AdvReac Type Severity Reaction Status Date / Time Penicillins Allergy Rash Verified 07/30/21 13:52 tetracycline Allergy Rash Verified 07/30/21 13:52 metformin AdvReac Diarrhea Verified 08/01/21 10:27 Home Medications Medication Instructions Recorded Confirmed Last Taken Type Aspirin 81 mg PO QDAY tablet 07/27/16 07/30/21 12/27/20 Rx AtorvaSTATin [Lipitor] 80 mg PO QHS 10/26/20 07/30/21 12/27/20 History Bumetanide [Bumetanide 2 mg tab] 2 mg PO DAILY 10/26/20 07/30/21 12/27/20 History Cholecalciferol (Vitamin D3) 50,000 unit PO QWEEK 10/26/20 07/30/21 12/27/20 History [Vitamin D3 50,000UNIT CAP] hydrALAZINE [Apresoline TAB] 50 mg PO BID 10/26/20 07/30/21 12/27/20 History lisinopriL [Zestril TAB] 40 mg PO QDAY 10/26/20 07/30/21 12/27/20 History metOLazone [Zaroxolyn] 5 mg PO QDAY 10/26/20 07/30/21 12/27/20 History Gabapentin [Neurontin] 800 mg PO BID 12/22/20 07/30/21 12/27/20 History Glimepiride [Amaryl] 4 mg PO BID 12/22/20 07/30/21 12/27/20 History Metoprolol Xl [Metoprolol 12.5 mg PO BID 12/22/20 07/30/21 12/28/20 07:00 History SUCCINATE ER TAB] Active Meds: Active Medications Acetaminophen (Acetaminophen 325 Mg Tab) 650 mg PO Q4H PRN PRN Reason: Pain MILD(1-3)/Fever >100.5/ROCHA Clonidine HCl (Clonidine Tts 0.2 Mg/24 Hr Patch) 0.2 mg TD Wolf [facility] Last Admin: 07/31/21 14:23 Dose: 0.2 mg Documented by: Famotidine (Famotidine 10 Mg Tab) 10 mg PO BID [facility] Last Admin: 08/01/21 10:11 Dose: 10 mg Documented by: Heparin Sodium (Porcine) (Heparin 5,000 Unit/1 Ml Vial) 5,000 unit SUB-Q Q12HR [facility] Last Admin: 08/01/21 10:11 Dose: 5,000 unit Documented by: Hydralazine HCl (Hydralazine 20 Mg/1 Ml Inj) 10 mg IV Q6H PRN PRN Reason: Hypertension Last Admin: 07/31/21 23:12 Dose: 10 mg Documented by: Hydromorphone HCl (Hydromorphone 1 Mg/1 Ml Inj) 0.5 mg IV Q3H PRN PRN Reason: Pain , Severe (7-10) Last Admin: 07/31/21 01:14 Dose: 0.5 mg Documented by: Cefepime HCl (Cefepime/Ns 1 Gm/100 Ml) 1 gm in 100 mls @ 200 mls/hr IV Q24H [facility] Last Infusion: 08/01/21 08:30 Dose: Infused Documented by: Sodium Chloride (Nacl 0.9%) 100 mls @ 999 mls/hr IV CHLOÉ PRN PRN Reason: Hypotension Insulin Human Lispro (Insulin Lispro 100 Unit/Ml) 0 unit SUB-Q Q6HR [facility]; P rotocol Last Admin: 08/01/21 11:37 Dose: Not Given Documented by: Ondansetron HCl (Ondansetron 4 Mg/2 Ml Inj) 4 mg IV Q8H PRN PRN Reason: Nausea And Vomiting Oxycodone/Acetaminophen (Oxycodone /Acetaminophen 5-325mg Tab) 1 tab PO Q6H PRN PRN Reason: Pain, Moderate (4-6) Sodium Chloride (Sodium Chloride 0.9% 10 Ml Flush Syringe) 10 ml IV BID [facility] Last Admin: 08/01/21 10:11 Dose: 10 ml Documented by: Sodium Chloride (Sodium Chloride 0.9% 10 Ml Flush Syringe) 10 ml IV PRN PRN PRN Reason: LINE FLUSH Review of Systems Constitutional: fatigue, weakness Exam - Vital Signs Vital signs: Vital Signs Pulse Ox 96 07/30/21 13:51 - General Appearance General appearance: well-developed, well-nourished EENT: ATNC Neck: Present: neck supple Respiratory: Clear to Ascultation, Normal Exam Heart: regular, normal heart rate Gastrointestinal: Present: normal Integumentary: no rash Neurologic: no focal deficit Musculoskeletal: Present: deferred Psychiatric: cooperative Results - Lab Results 08/01/21 06:46 08/01/21 06:46 Most recent lab results Calcium 8.9 mg/dL (8.4-10.2) 08/01/21 06:46 Phosphorus 6.50 mg/dL (2.5-4.5) H 08/01/21 06:46 Magnesium 2.80 mg/dL (1.7-2.3) H 08/01/21 06:46 Assessment and Plan - Patient Problems (1) Altered mental state Current Visit: Yes Status: Chronic Plan to address problem: Unclear etiology of altered mental status. She is doing better this morning. CT of the head did not show any acute abnormalities. We will continue to monitor closely. Essentially however her mentation is back to baseline. (2) ESRD (end stage renal disease) on dialysis Current Visit: Yes Status: Chronic Plan to address problem: We will place on a inpatient Sunday//Sunday hemodialysis schedule. Patient wishes to have lidocaine cream (3) IDDM (insulin dependent diabetes mellitus) Current Visit: No Status: Acute Plan to address problem: Diabetes management per primary attending. (4) Hypertension Current Visit: No Status: Chronic Qualifiers: Hypertension type: primary hypertension Qualified Code(s): I10 - Essential (primary) hypertension Plan to address problem: Monitor blood pressures under current regimen. (5) Secondary hyperparathyroidism (of renal origin) Current Visit: Yes Status: Chronic Plan to address problem: Continue home phosphorus binder regimen.
--- NOTE | 2021-08-01 15:00 | Progress Note ---
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 #Acute metabolic encephalopathy-resolved #Possible sepsis -Etiology includes hypoglycemia secondary to oral hypoglycemics versus sepsis -Pending blood cultures; NGTD x1 day. Low clinical suspicion given lack of fever and improved leukocytosis. -Currently on cefepime and vancomycin. Can discontinue on 08/02/2021 if blood cultures are negative. -Neurology on board; appreciate recs. Pending MRI. -Restarted renal diet in the setting of mentation being back to baseline -ID on board; appreciate recs #Elevated troponin -Troponin 0.123---> 0.193. To continue to trend troponin. -Likely elevated in the setting of ESRD. If troponins continue to increase, cardiology will be consulted in the morning. #ESRD on dialysis -Patient missed most recent dialysis session (07/30/2021) -Nephrology currently on board; appreciate recs -Patient will undergo hemodialysis on 08/01/2021, continuing with TTS schedule while in #Hypertension -Blood pressure is mildly elevated -We will continue home antihypertensives #Type 2 diabetes mellitus -Holding antihypertensives in the setting of possible hypoglycemia induced encephalopathy -Pending hemoglobin A1c -We will consider starting basal insulin (NPH) twice daily if blood glucose >180 . Inpatient blood glucose goal [id number] #Hyperlipidemia -Holding home statins. Will consider restarting once clinically stable #Decreased TSH level #Possible sick euthyroid syndrome -Elevated TSH with normal T4 -Consider endocrinology consult #DVT prophylaxis -Continue subcutaneous heparin 5000 units every 8 hours Disposition Plan: Continue medical management Total Time Spent with Patient (Minutes): 40 History Interval history: No acute events overnight Hospitalist Physical - Constitutional Vitals: Temp Pulse Resp BP Pulse Ox 97.6 F 79 14 158/54 97 08/01/21 08:14 08/01/21 08:14 08/01/21 08:14 08/01/21 08:14 08/01/21 08:14 General appearance: Present: no acute distress, well-nourished, obese - EENT Eyes: Present: PERRL, EOM intact ENT: hearing intact, clear oral mucosa, dentition normal - Neck Neck: Present: supple, normal ROM - Respiratory Respiratory effort: normal - Cardiovascular Rhythm: regular Heart Sounds: Present: S1 & S2 - Extremities Extremities: no ischemia, pulses intact, pulses symmetrical, No edema, normal temperature, normal color, abnormal (AV fistula and left upper extremity) Peripheral Pulses: within normal limits - Abdominal General gastrointestinal: soft, non-tender, non-distended, normal bowel sounds - Integumentary Integumentary: Present: clear, warm, dry - Psychiatric Psychiatric: appropriate mood/affect, intact judgment & insight, memory intact, cooperative - Neurologic Neurologic: CNII-XII intact, moves all extremities - Allied Health Allied health notes reviewed: nursing HEART Score - HEART Score Age: > 65 Risk factors: > 3 risk factors or hx of atherosclerotic disease Troponin: Troponin T 0.170 ng/mL (0.00-0.029) H* 07/31/21 17:52 Troponin: 1-3x normal limit - Critical Actions Critical Actions: 4-6 pts:12-16.6% risk of adverse cardiac event. Should be admitted Results - Labs CBC & Chem 7: 08/01/21 06:46 08/01/21 06:46 Labs: Laboratory Last Values WBC 8.6 K/mm3 (4.5-11.0) 08/01/21 06:46 RBC 3.52 M/mm3 (3.65-5.03) L 08/01/21 06:46 Hgb 11.8 gm/dl (10.1-14.3) 08/01/21 06:46 Hct 35.2 % (30.3-42.9) 08/01/21 06:46 MCV 100 fl (79-97) H 08/01/21 06:46 MCH 34 pg (28-32) H 08/01/21 06:46 MCHC 34 % (30-34) 08/01/21 06:46 RDW 16.1 % (13.2-15.2) H 08/01/21 06:46 Plt Count 213 K/mm3 (140-440) 08/01/21 06:46 Lymph % (Auto) 27.7 % (13.4-35.0) 08/01/21 06:46 [place] % (Auto) 8.9 % (0.0-7.3) H 08/01/21 06:46 Eos % (Auto) 5.7 % (0.0-4.3) H 08/01/21 06:46 Baso % (Auto) 1.4 % (0.0-1.8) 08/01/21 06:46 Lymph # (Auto) 2.4 K/mm3 (1.2-5.4) 08/01/21 06:46 [place] # (Auto) 0.8 K/mm3 (0.0-0.8) 08/01/21 06:46 Eos # (Auto) 0.5 K/mm3 (0.0-0.4) H 08/01/21 06:46 Baso # (Auto) 0.1 K/mm3 (0.0-0.1) 08/01/21 06:46 Add Manual Diff Complete 08/01/21 06:46 Seg Neutrophils % 56.3 % (40.0-70.0) 08/01/21 06:46 Seg Neutrophils # 4.9 K/mm3 (1.8-7.7) 08/01/21 06:46 PT 13.2 Sec. (12.2-14.9) 07/30/21 14:42 INR 0.95 (0.87-1.13) 07/30/21 14:42 APTT 23.4 Sec. (24.2-36.6) L 07/30/21 14:42 Sodium 144 mmol/L (137-145) 08/01/21 06:46 Potassium 4.8 mmol/L (3.6-5.0) 08/01/21 06:46 Chloride 107.4 mmol/L (98-107) H 08/01/21 06:46 Carbon Dioxide 22 mmol/L (22-30) 08/01/21 06:46 Anion Gap 19 mmol/L 08/01/21 06:46 BUN 59 mg/dL (7-17) H 08/01/21 06:46 Creatinine 5.3 mg/dL (0.6-1.2) H 08/01/21 06:46 Estimated GFR 8 ml/min 08/01/21 06:46 BUN/Creatinine Ratio 11 % 08/01/21 06:46 Glucose 196 mg/dL (65-100) H 08/01/21 06:46 POC Glucose 183 mg/dL (70-105) H 08/01/21 07:55 Lactic Acid 1.30 mmol/L (0.7-2.0) 07/30/21 14:42 Calcium 8.9 mg/dL (8.4-10.2) 08/01/21 06:46 Phosphorus 6.50 mg/dL (2.5-4.5) H 08/01/21 06:46 Magnesium 2.80 mg/dL (1.7-2.3) H 08/01/21 06:46 Total Bilirubin 1.00 mg/dL (0.1-1.2) 07/31/21 07:54 AST 30 units/L (5-40) 07/31/21 07:54 ALT 27 units/L (7-56) 07/31/21 07:54 Alkaline Phosphatase 70 units/L (35-129) 07/31/21 07:54 Ammonia 21.0 umol/L (25-60) L 07/30/21 14:42 Total Creatine Kinase 503 units/L (30-135) H 07/30/21 14:42 CK-MB (CK-2) 5.2 ng/mL (0.0-4.0) H 07/30/21 14:42 CK-MB (CK-2) Rel Index 1.0 (0-4) 07/30/21 14:42 Troponin T 0.170 ng/mL (0.00-0.029) H* 07/31/21 17:52 Total Protein 6.6 g/dL (6.3-8.2) 07/31/21 07:54 Albumin 3.5 g/dL (3.9-5) L 07/31/21 07:54 Albumin/Globulin Ratio 1.1 % 07/31/21 07:54 Triglycerides 93 mg/dL (2-149) 07/30/21 14:42 Cholesterol 131 mg/dL (50-199) 07/30/21 14:42 LDL Cholesterol Direct 70 mg/dL (50-130) 07/30/21 14:42 HDL Cholesterol 47 mg/dL (40-59) 07/30/21 14:42 Cholesterol/HDL Ratio 2.78 % 07/30/21 14:42 TSH 0.056 mlU/mL (0.270-4.200) L 07/30/21 14:42 Free T4 1.18 ng/dL (0.76-1.46) 07/30/21 14:42 Urine Color Yellow (Yellow) 07/30/21 Unknown Urine Turbidity Clear (Clear) 07/30/21 Unknown Urine pH 6.0 (5.0-7.0) 07/30/21 Unknown Ur Specific [place] 1.011 (1.003-1.030) 07/30/21 Unknown Urine Protein >500 mg/dL (Negative) 07/30/21 Unknown Urine Glucose (UA) >=500 mg/dL (Negative) 07/30/21 Unknown Urine Ketones Neg mg/dL (Negative) 07/30/21 Unknown Urine Blood Sm (Negative) 07/30/21 Unknown Urine Nitrite Neg (Negative) 07/30/21 Unknown Ur Reducing Substances Not Reportable 07/30/21 Unknown Urine Bilirubin Neg (Negative) 07/30/21 Unknown Urine Ictotest Not Reportable 07/30/21 Unknown Urine Urobilinogen < 2.0 mg/dL (<2.0) 07/30/21 Unknown Ur Leukocyte Esterase Neg (Negative) 07/30/21 Unknown Urine WBC (Auto) < 1.0 /HPF (0.0-6.0) 07/30/21 Unknown Urine RBC (Auto) 1.0 /HPF (0.0-6.0) 07/30/21 Unknown U Epithel Cells (Auto) 1.0 /HPF (0-13.0) 07/30/21 Unknown Salicylates < 0.3 mg/dL (2.8-20.0) L 07/30/21 14:42 Urine Opiates Screen Negative 07/30/21 Unknown Urine Methadone Screen Negative 07/30/21 Unknown Acetaminophen 5.0 ug/mL (10.0-30.0) L 07/30/21 14:42 Ur Barbiturates Screen Negative 07/30/21 Unknown Ur Phencyclidine Scrn Negative 07/30/21 Unknown Ur Amphetamines Screen Negative 07/30/21 Unknown U Benzodiazepines Scrn Negative 07/30/21 Unknown Urine Cocaine Screen Negative 07/30/21 Unknown U Marijuana (THC) Screen Negative 07/30/21 Unknown Drugs of Abuse Note Disclamer 07/30/21 Unknown Plasma/Serum Alcohol < 0.01 % (0-0.07) 07/30/21 14:42 Hepatitis A IgM Ab Non-reactive (NonReactive) 08/01/21 12:21 Hep Bs Antigen Nonreactive (Negative) 08/01/21 12:21 Hep B Core IgM Ab Non-reactive (NonReactive) 08/01/21 12:21 Hepatitis C Antibody Non-reactive (NonReactive) 08/01/21 12:21 Microbiology: Microbiology 07/30/21 14:42 Peripheral/Venous Blood Culture - Preliminary NO GROWTH AFTER 24 HOURS 07/30/21 14:42 Peripheral/Venous Blood Culture - Preliminary NO GROWTH AFTER 24 HOURS López/IV: Voiding Method External Female Catheter Active Medications - Current Medications Current Medications: Generic Name Dose Route Start Last Admin Trade Name Freq PRN Reason Stop Dose Admin Acetaminophen 650 mg 07/30/21 22:50 Acetaminophen 325 Mg Tab PO Q4H PRN Pain MILD(1-3)/Fever >100.5/ROCHA Clonidine HCl 0.2 mg 07/31/21 08:00 07/31/21 14:23 Clonidine Tts 0.2 Mg/24 Hr Patch TD 0.2 mg Wolf ARABELLA Administration Famotidine 10 mg 07/31/21 10:00 08/01/21 10:11 Famotidine 10 Mg Tab PO 10 mg BID ARABELLA Administration Heparin Sodium (Porcine) 5,000 unit 07/30/21 23:00 08/01/21 10:11 Heparin 5,000 Unit/1 Ml Vial SUB-Q 5,000 unit Q12HR ARABELLA Administration Hydralazine HCl 10 mg 07/31/21 22:59 07/31/21 23:12 Hydralazine 20 Mg/1 Ml Inj IV 10 mg Q6H PRN Administration Hypertension Hydromorphone HCl 0.5 mg 07/30/21 22:50 07/31/21 01:14 Hydromorphone 1 Mg/1 Ml Inj IV 0.5 mg Q3H PRN Administration Pain , Severe (7-10) Cefepime HCl 1 gm in 100 mls @ 200 mls/hr 07/31/21 08:00 08/01/21 08:30 Cefepime/Ns 1 Gm/100 Ml IV Infused Q24H ARABELLA Infusion Sodium Chloride 100 mls @ 999 mls/hr 08/01/21 11:30 Nacl 0.9% IV CHLOÉ PRN Hypotension Insulin Human Lispro 0 unit 07/31/21 07:00 08/01/21 11:37 Insulin Lispro 100 Unit/Ml SUB-Q Not Given Q6HR [facility] Protocol Ondansetron HCl 4 mg 07/30/21 22:50 Ondansetron 4 Mg/2 Ml Inj IV Q8H PRN Nausea And Vomiting Oxycodone/Acetaminophen 1 tab 07/30/21 22:50 Oxycodone /Acetaminophen 5-325mg Tab PO Q6H PRN Pain, Moderate (4-6) Sodium Chloride 10 ml 07/31/21 10:00 08/01/21 10:11 Sodium Chloride 0.9% 10 Ml Flush Syringe IV 10 ml BID ARABELLA Administration Sodium Chloride 10 ml 07/30/21 22:50 Sodium Chloride 0.9% 10 Ml Flush Syringe IV PRN PRN LINE FLUSH
[2021-08-01] MEDS: hydrALAZINE 20 MG/1 ML INJ IV PRN (22:51)
[2021-08-02] MEDS: hydrALAZINE 20 MG/1 ML INJ IV PRN (02:54)
[2021-08-02] MEDS: INSULIN LISPRO 100 UNIT/ML SUB-Q SCH ×4 (02:54→18:00)
[2021-08-02 06:29] LABS: Basophils # (Auto) 0.1 K/mm3 (0.0-0.1); Basophils % (Auto) 0.7 % (0.0-1.8); Eosinophils # (Auto) 0.3 K/mm3 (0.0-0.4); Eosinophils % (Auto) 3.7 % (0.0-4.3); Hematocrit 33.2 % (30.3-42.9); Lymphocytes # (Auto) 1.9 K/mm3 (1.2-5.4); Lymphocytes % (Auto) 26.1 % (13.4-35.0); Mean Corpuscular HGB Conc 33 % (30-34); Mean Corpuscular Volume 99 fl (79-97); Monocytes # (Auto) 0.6 K/mm3 (0.0-0.8); Monocytes % (Auto) 8.8 % (0.0-7.3); Platelet Count 176 K/mm3 (140-440); Red Blood Count 3.35 M/mm3 (3.65-5.03); Red Cell Distribution Width 16.2 % (13.2-15.2)
[2021-08-02 06:46] LABS: Calcium 9.1 mg/dL (8.4-10.2)
[2021-08-02] MEDS ORDERED: hydrALAZINE 25 MG TAB PO SCH (10:00)
[2021-08-02] MEDS: FAMOTIDINE 10 MG TAB PO SCH (10:36)
[2021-08-02] MEDS: HEPARIN 5,000 UNIT/1 ML VIAL SUB-Q SCH (10:36)
--- NOTE | 2021-08-02 12:23 | Progress Note ---
Assessment and Plan Cultures: 07/30/2021 blood culture: In process A/P: 66-year-old female with ESRD on HD, hypertension, diabetes type 2, hyperlipidemia was admitted after she was found to be unresponsive on the bath room floor. Upon evaluation in the ER, she was found to be hypotensive: #Hypotension: transient, responded to fluids, no fever. Borderline leucocytosis now resolved. #Acute encephalopathy: Neurology evaluating. Suspected toxic/metabolic. No obvious evidence of infectious process identified at this time. Rule out bacteremia given ESRD on hemodialysis. #ESRD on HD: Renally dose antibiotics. #Diabetes mellitus type 2 #Elevated troponin Recs: -Stopped antibiotics. ID will sign off. Please call with questions. Gabbi Castelan MD [facility] ([facility] O: [phone] F: [phone] Subjective Date of service: 08/02/21 Interval history: Afebrile, normal white count. Blood cultures remain no growth so far. Objective - Exam Narrative Exam: Physical Exam: Constitutional: Drowsy Head, Ears, Nose: Normocephalic, atraumatic. External ears, nose normal Eyes: Conjunctivae/corneas clear. No icterus. No ptosis. Neck: Supple, no meningeal signs Oral: Deferred Cardiovascular: S1, S2 + Respiratory: Air entry fair bilaterally GI: Soft, non-tender; bowel sounds normal. No peritoneal signs Musculoskeletal: No pedal edema, no cyanosis. Skin: No rash or abscess Hem/Lymphatic: No palpable cervical or supraclavicular nodes. No lymphangitis Psych: No agitation Neurological: Drowsy - Constitutional Vitals: Vital Signs Temp Pulse Resp BP Pulse Ox 98.2 F 73 18 114/59 96 08/02/21 11:20 08/02/21 12:15 08/02/21 11:20 08/02/21 12:15 08/02/21 11:20 Temperature -Last 24 Hours Temperature 98.2 F - Labs CBC & Chem 7: 08/02/21 05:28 08/02/21 05:28 Labs: Abnormal lab results 08/01/21 08/01/21 08/02/21 Range/Units 15:21 18:33 01:32 RBC (3.65-5.03) M/mm3 MCV (79-97) fl MCH (28-32) pg RDW (13.2-15.2) % [place] % (Auto) (0.0-7.3) % Chloride (98-107) mmol/L Carbon Dioxide (22-30) mmol/L BUN (7-17) mg/dL Creatinine (0.6-1.2) mg/dL Glucose (65-100) mg/dL POC Glucose 282 H 267 H 255 H (70-105) mg/dL Phosphorus (2.5-4.5) mg/dL Magnesium (1.7-2.3) mg/dL 08/02/21 08/02/21 08/02/21 Range/Units 05:28 05:28 06:01 RBC 3.35 L (3.65-5.03) M/mm3 MCV 99 H (79-97) fl MCH 33 H (28-32) pg RDW 16.2 H (13.2-15.2) % [place] % (Auto) 8.8 H (0.0-7.3) % Chloride 107.4 H (98-107) mmol/L Carbon Dioxide 20 L (22-30) mmol/L BUN 74 H (7-17) mg/dL Creatinine 5.9 H (0.6-1.2) mg/dL Glucose 283 H (65-100) mg/dL POC Glucose 236 H (70-105) mg/dL Phosphorus 5.60 H (2.5-4.5) mg/dL Magnesium 2.80 H (1.7-2.3) mg/dL 08/02/21 Range/Units 07:32 RBC (3.65-5.03) M/mm3 MCV (79-97) fl MCH (28-32) pg RDW (13.2-15.2) % [place] % (Auto) (0.0-7.3) % Chloride (98-107) mmol/L Carbon Dioxide (22-30) mmol/L BUN (7-17) mg/dL Creatinine (0.6-1.2) mg/dL Glucose (65-100) mg/dL POC Glucose 222 H (70-105) mg/dL Phosphorus (2.5-4.5) mg/dL Magnesium (1.7-2.3) mg/dL
--- NOTE | 2021-08-02 12:48 | Progress Note ---
Assessment and Plan - Patient Problems (1) Altered mental state Current Visit: Yes Status: Chronic Plan to address problem: Unclear etiology of altered mental status. She is doing better this morning. CT of the head did not show any acute abnormalities. We will continue to monitor closely. Essentially however her mentation is back to baseline. (2) ESRD (end stage renal disease) on dialysis Current Visit: Yes Status: Chronic Plan to address problem: We will place on a inpatient Sunday//Sunday hemodialysis schedule. from nephrology standpoint patient is stable to be discharged after dialysis today. (3) IDDM (insulin dependent diabetes mellitus) Current Visit: No Status: Acute Plan to address problem: Diabetes management per primary attending. (4) Hypertension Current Visit: No Status: Chronic Qualifiers: Hypertension type: primary hypertension Qualified Code(s): I10 - Essential (primary) hypertension Plan to address problem: Monitor blood pressures under current regimen. (5) Secondary hyperparathyroidism (of renal origin) Current Visit: Yes Status: Chronic Plan to address problem: Continue home phosphorus binder regimen. Subjective Date of service: 08/02/21 Interval history: no acute events overnight. Plan for hemodialysis today. Objective - Vital Signs Vital signs: Vital Signs - 12hr 08/02/21 08/02/21 08/02/21 02:54 11:20 11:25 Temperature 98.2 F Pulse Rate 82 78 Respiratory 18 Rate Blood Pressure 179/61 151/81 154/65 O2 Sat by Pulse 96 Oximetry [ Anterior Bilateral Throughout] 08/02/21 08/02/21 08/02/21 11:30 11:45 12:00 Temperature Pulse Rate 76 76 78 Respiratory Rate Blood Pressure 162/62 140/57 116/56 O2 Sat by Pulse Oximetry [ Anterior Bilateral Throughout] 08/02/21 08/02/21 12:15 12:30 Temperature Pulse Rate 73 76 Respiratory Rate Blood Pressure 114/59 117/58 O2 Sat by Pulse Oximetry [ Anterior Bilateral Throughout] - General Appearance General appearance: well-developed, appears stated age, obese EENT: ATNC Neck: no JVD Respiratory: Present: Clear to Ascultation, Normal Exam Cardiology: regular Gastrointestinal: normal Integumentary: no rash Neurologic: no focal deficit, alert and oriented x3 Musculoskeletal: deferred Psychiatric: cooperative - Lab 08/02/21 05:28 08/02/21 05:28 Most recent lab results Calcium 9.1 mg/dL (8.4-10.2) 08/02/21 05:28 Phosphorus 5.60 mg/dL (2.5-4.5) H 08/02/21 05:28 Magnesium 2.80 mg/dL (1.7-2.3) H 08/02/21 05:28 - Allied health notes Allied health notes reviewed: nursing Medications & Allergies - Medications Allergies/Adverse Reactions: Allergies Penicillins Allergy (Verified 07/30/21 13:52) Rash tetracycline Allergy (Verified 07/30/21 13:52) Rash metformin Adverse Reaction (Verified 08/01/21 10:27) Diarrhea Home Medications: Home Medications Medication Instructions Recorded Confirmed Last Taken Type Aspirin 81 mg PO QDAY tablet 07/27/16 07/30/21 12/27/20 Rx AtorvaSTATin [Lipitor] 80 mg PO QHS 10/26/20 07/30/21 12/27/20 History Bumetanide [Bumetanide 2 mg tab] 2 mg PO DAILY 10/26/20 07/30/21 12/27/20 History Cholecalciferol (Vitamin D3) 50,000 unit PO QWEEK 10/26/20 07/30/21 12/27/20 History [Vitamin D3 50,000UNIT CAP] metOLazone [Zaroxolyn] 5 mg PO QDAY 10/26/20 07/30/21 12/27/20 History Gabapentin [Neurontin] 800 mg PO BID 12/22/20 07/30/21 12/27/20 History Glimepiride [Amaryl] 4 mg PO BID 12/22/20 07/30/21 12/27/20 History Metoprolol Xl [Metoprolol 12.5 mg PO BID 12/22/20 07/30/21 12/28/20 07:00 History SUCCINATE ER TAB] hydrALAZINE [Apresoline TAB] 25 mg PO BID 30 Days #60 tablet 08/02/21 Unknown Rx Active Medications: Generic Name Dose Route Start Last Admin Trade Name Freq PRN Reason Stop Dose Admin Acetaminophen 650 mg 07/30/21 22:50 Acetaminophen 325 Mg Tab PO Q4H PRN Pain MILD(1-3)/Fever >100.5/ROCHA Clonidine HCl 0.2 mg 07/31/21 08:00 07/31/21 14:23 Clonidine Tts 0.2 Mg/24 Hr Patch TD 0.2 mg Wolf ARABELLA Administration Famotidine 10 mg 07/31/21 10:00 08/02/21 10:36 Famotidine 10 Mg Tab PO 10 mg BID ARABELLA Administration Heparin Sodium (Porcine) 5,000 unit 07/30/21 23:00 08/02/21 10:36 Heparin 5,000 Unit/1 Ml Vial SUB-Q 5,000 unit Q12HR ARABELLA Administration Hydralazine HCl 25 mg 08/02/21 10:00 08/02/21 10:37 Hydralazine 25 Mg Tab PO Not Given BID ARABELLA Hydromorphone HCl 0.5 mg 07/30/21 22:50 08/01/21 05:22 Hydromorphone 1 Mg/1 Ml Inj IV 0.5 mg Q3H PRN Administration Pain , Severe (7-10) Sodium Chloride 100 mls @ 999 mls/hr 08/01/21 16:17 Nacl 0.9% IV CHLOÉ PRN Hypotension Insulin Human Lispro 0 unit 07/31/21 07:00 08/02/21 06:11 Insulin Lispro 100 Unit/Ml SUB-Q 4 unit Q6HR ARABELLA Administration Protocol Ondansetron HCl 4 mg 07/30/21 22:50 Ondansetron 4 Mg/2 Ml Inj IV Q8H PRN Nausea And Vomiting Oxycodone/Acetaminophen 1 tab 07/30/21 22:50 Oxycodone /Acetaminophen 5-325mg Tab PO Q6H PRN Pain, Moderate (4-6) Sodium Chloride 10 ml 07/31/21 10:00 08/02/21 10:37 Sodium Chloride 0.9% 10 Ml Flush Syringe IV 10 ml BID ARABELLA Administration Sodium Chloride 10 ml 07/30/21 22:50 08/01/21 21:53 Sodium Chloride 0.9% 10 Ml Flush Syringe IV 10 ml PRN PRN Administration LINE FLUSH
[2021-08-02 14:58] VITALS: BP 110/61
--- NOTE | 2021-08-02 15:53 | Discharge Summary ---
Providers - Providers Date of Admission: 07/30/21 18:17 Date of discharge: 08/02/21 Attending physician: NAT TREJO MD 07/31/21 07:07 Consult to Physician [CONS] Routine Comment: Consulting Provider: SARAY BOWERS Physician Instructions: Reason For Exam: ESRD 07/31/21 07:08 Consult to Physician [CONS] Routine Comment: Consulting Provider: MADDY BIANCHI Physician Instructions: Reason For Exam: AMS Consult to Physician [CONS] Routine Comment: Consulting Provider: CHAS DRAPER Physician Instructions: Reason For Exam: possble sepsis 08/01/21 09:10 Physical Therapy Evaluation and Treat [CONS] Routine Comment: Reason For Exam: Deconditioning Primary care physician: VETERINARY TECHNICIAN Hospitalization Reason for admission: Altered mental status and hypotension Condition: Stable Hospital course: 68-year-old female with history of ESRD on HD, hypertension, type 2 diabetes and hyperlipidemia who was found unresponsive at home. She was found to be hypotensive and was given IV fluids. She was admitted for further care. She was started on broad-spectrum antibiotics for sepsis. MRI was negative. Neurology and Nephrology was consulted. Troponin was elevated and peaked to 0.193. It was determined to be secondary to ESRD. Blood cultures were negative for 48 hours and antibiotics were discontinued. The patient's altered mentation resolved and her blood pressure medications were adjusted. She was discharged home in the care of her sister after HD session. Disposition: 01 HOME / SELF CARE / HOMELESS Final Discharge Diagnosis (Prints w/discharge instructions): Acute metabolic encephalopathy. Hypotension. ESRD on HD. Sepsis Time spent for discharge: 20 minutes Core Measure Documentation - Palliative Care Palliative Care/ Comfort Measures: Not Applicable - Core Measures Any of the following diagnoses?: none Exam - Physical Exam Narrative exam: GENERAL: Well-developed well-nourished. Lying in bed. CHEST/LUNGS: CTAB on room air HEART/CARDIOVASCULAR: RRR. No murmur, rubs or gallops appreciated. ABDOMEN: +BS. NT/ND. NEURO: No focal motor deficit. Follows all commands. PSYCH: Cooperative. - Constitutional Vitals: Temp Pulse Resp BP Pulse Ox 98.5 F 76 20 110/61 97 08/02/21 14:55 08/02/21 14:55 08/02/21 14:55 08/02/21 14:55 08/02/21 14:55 Plan Care Plan Goals: Continue dialysis on Sunday, , and Saturdays. Follow-up with primary care within 1 week. Start blood pressure medications at new doses. Assessment: Improved. Status post empiric antibiotics for sepsis. Blood cultures negative x48 hours. Blood pressure medications were held and later readjusted prior to discharge. She was discharged after HD session. Follow up with: PRIMARY CARE, [Primary Care Provider] - 3-5 Days Prescriptions: hydrALAZINE [Apresoline TAB] 25 mg PO BID 30 Days #60 tablet
== END 2021-08-02 18:00 | disposition home or self-care (01) | DRG 70 ==
LOC: ED 13:32 → IMCU 18:17 → 4A 08-01 09:30
PROVIDERS: ADMIT Internal Medicine; ATTEND Student in an Organized Health Care Education/Training Program
PROC: 5A1D70Z Performance of Urinary Filtration, Intermittent, Less than 6 Hours Per Day (ICD-10-PCS; principal; 2021-08-02)
DX: G93.41 Metabolic encephalopathy (principal); N18.6 End stage renal disease; N25.81 Secondary hyperparathyroidism of renal origin; I12.0 Hypertensive chronic kidney disease with stage 5 chronic kidney disease or end stage renal disease; K21.9 Gastro-esophageal reflux disease without esophagitis; M19.90 Unspecified osteoarthritis, unspecified site; E11.22 Type 2 diabetes mellitus with diabetic chronic kidney disease; Z99.2 Dependence on renal dialysis; E78.2 Mixed hyperlipidemia; Z82.49 Family history of ischemic heart disease and other diseases of the circulatory system; Z88.8 Allergy status to other drugs, medicaments and biological substances; Z90.49 Acquired absence of other specified parts of digestive tract; Z79.82 Long term (current) use of aspirin; Z79.899 Other long term (current) drug therapy; Z88.0 Allergy status to penicillin
CPT/HCPCS: 36415; 70450; 71045; 80048; 80053; 80061; 80074; 80202; 80307; 80320; 81001; 82140; 82550; 82553; 82962; 83735; 84100; 84439; 84443; 84484; 85025; 85610; 85730; 87040; 93005; G0378; G0480; J0360; J0692; J0885; J1170; J1644; J1815; J2060; J3370; J7040